=== PATIENT | male | born 1950 | race Caucasian/White ===

== ENCOUNTER 2019-09-20 11:31 | Outpatient (CLI) | payer MEDICARE, OTHER, SELFPAY ==
--- NOTE | 2019-09-20 11:43 | XR_ITS ---
WS: [id number] PROCEDURE: XR chest 2V* [id number] CLINICAL INFORMATION: ACUTE BRONCHITIS COMPARISON: None. FINDINGS: Heart: Normal cardiac silhouette. Lungs: Chronic emphysematous changes. No acute pulmonary infiltrates. No consolidation or pleural flu id. Bones: Hypertrophic changes thoracic spine. XR/XR chest 2V* [id number] IMPRESSION: No acute chest findings.
== END 2019-09-20 11:32 | disposition home or self-care (01) ==
LOC: RAD 11:40
PROVIDERS: Family Provider Family Medicine; PCP Family Medicine; Visit Provider Family Medicine
DX: J20.9 Acute bronchitis, unspecified (principal)
CPT/HCPCS: 71046

== ENCOUNTER 2020-02-20 11:04 | Outpatient (CLI) | payer MEDICARE, OTHER, SELFPAY ==
--- NOTE | 2020-02-20 11:18 | CT_ITS ---
WS: [id number] CTA OF THE CHEST WITH PULMONARY EMBOLISM PROTOCOL TECHNIQUE: High-resolution contrast enhanced CTA of the chest with coronal and sagittal reformatted i mages with pulmonary embolism protocol. MIP images are also reviewed. CLINICAL INFORMATION: CHEST PAIN COMPARISON: None. DLP: 802.[address] scans at [facility] use at least one of these dose optimization techniques: automat ed exposure control; mA and/or kV adjustment per patient size (includes targeted exams where dose is matched to clinical indication); or iterative reconstruction. FINDINGS: Proximal main pulmonary arteries are normal. Segmental and subsegmental pulmonary arteries are normal . No filling defects. No evidence of pulmonary embolus. Normal caliber thoracic aorta. Mild aortic calcification. Coronary calcification. No mediastinal or h ilar lymphadenopathy. No axillary lymphadenopathy. Adrenal glands are normal. Exophytic left renal cy st measuring 5.3 x 4.6 cm. Mild chronic emphysematous changes. Slight atelectasis in the lung bases. No acute pulmonary infiltrates. CT/CT angio chest PE protcl [id number] IMPRESSION: 1. No evidence of pulmonary embolus. 2. No mediastinal or hilar lymphadenopathy. 3. No acute pulmonary infiltrates. Subsegmental atelectasis the lung bases. 4. Exophytic left upper pole renal cyst measuring 5.3 cm
[2020-02-20] MEDS: iohexol 350 mg/mL 100 mL Btl IV (11:53)
== END 2020-02-20 11:05 | disposition home or self-care (01) ==
LOC: RADWPI 11:08
PROVIDERS: Family Provider Family Medicine; PCP Family Medicine; Visit Provider Family Medicine
DX: R07.9 Chest pain, unspecified (principal); J98.11 Atelectasis; Q61.01 Congenital single renal cyst
CPT/HCPCS: 71275; Q9967

== ENCOUNTER 2020-02-27 08:30 | Outpatient (CLI) | payer MEDICARE, OTHER, SELFPAY ==
--- NOTE | 2020-02-27 08:36 | USCV_ITS ---
Maria Luisa, Charbel Age: 69 Gender: M : 1950 Exam Date: 02/27/2020 08:37 Ordering Phys: Geraldo Huerta MD Technologist: Anabella Christine Exam Location: [facility] [place] Indication: CP BP: 129 / 72 HR: 88 Rhythm: Sinus Technical Quality: Fair MEASUREMENTS (Male / Female) Normal Values 2D ECHO LV Diastolic Diameter PLAX 5.4 cm 4.2 - 5.9 / 3.9 - 5.3 cm LV Systolic Diameter PLAX 4.5 cm LV Chamber Size 5.0 cm IVS Diastolic Thickness 1.3 cm 0.6 - 1.0 / 0.6 - 0.9 cm IVS Systolic Thickness 2.2 cm LVPW Diastolic Thickness 0.9 cm 0.6 - 1.0 / 0.6 - 0.9 cm LVPW Systolic Thickness 1.1 cm RV Chamber Size 3.3 cm LVOT Diameter 2.0 cm LV Ejection Fraction 2D Teich 34.7 % LA Diameter 3.9 cm LA Width 3.7 cm LA Height 5.2 cm RA Width 3.3 cm RA Height 4.8 cm Aorta at Sinotubular Diameter 3.2 cm M-MODE LV Diastolic Diameter MM 6.5 cm 4.2 - 5.9 / 3.9 - 5.3 cm LV Systolic Diameter MM 5.0 cm LV Ejection Fraction MM Teich 43.6 % IVS Diastolic Thickness MM 1.1 cm 0.6 - 1.0 / 0.6 - 0.9 cm IVS Systolic Thickness MM 1.5 cm LVPW Diastolic Thickness MM 1.3 cm 0.6 - 1.0 / 0.6 - 0.9 cm LVPW Systolic Thickness MM 1.4 cm RV Diastolic Diameter MM 1.6 cm Aortic Annulus Diameter 3.2 cm LA Ao Ratio MM 1.2 MV E Point Septal Separation 0.9 cm DOPPLER AV Peak Velocity 115.0 cm/s LVOT Peak Velocity 102.0 cm/s AV Area Cont Eq vti 2.7 cm squared AV Area Cont Eq pk 2.8 cm squared MV Area PHT 5.0 cm squared Mitral E to A Ratio 1.0 MV E' Velocity 7.0 cm/s Mitral E to MV E' Ratio 13.0 Mitral E to LV E' Lateral Ratio 14.0 Mitral E to LV E' Septal Ratio 12.4 TV Peak E Velocity 53.0 cm/s Right Atrial Pressure 3.0 mmHg PV Peak Velocity 81.0 cm/s FINDINGS Left Ventricle Normal left ventricular cavity size. Normal left ventricular wall thickness. Moderately decreased left ventricular systolic function. Regional wall motion abnormalities (see diagram). Grade II/IV diastolic dysfunction, moderately elevated filling pressures. Moderate to severe hypokinesis of the inferior, posterior and lateral brown. Ejection fraction 35 to 40%. Right Ventricle Normal right ventricular size and systolic function. Normal right ventricular systolic pressure. Right Atrium The right atrium is normal in size. Left Atrium The left atrium is normal in size. Mitral Valve Structurally normal mitral valve without significant stenosis or prolapse. There is no mitral regurgitation. Aortic Valve Structurally normal aortic valve without significant sclerosis or stenosis. There is no aortic regurgitation. Tricuspid Valve Structurally normal tricuspid valve. Trace tricuspid valve regurgitation. Pulmonic Valve Pulmonic valve not well visualized. Pericardium Normal pericardium without effusion. Aorta Normal ascending aorta dimension. CONCLUSIONS Normal left ventricular cavity size. Normal left ventricular wall thickness. Moderately decreased left ventricular systolic function. Regional wall motion abnormalities (see diagram). Grade II/IV diastolic dysfunction, moderately elevated filling pressures. Moderate to severe hypokinesis of the inferior, posterior and lateral brown. Ejection fraction 35 to 40%. There are no prior echocardiogram studies to compare. Dr. Brandan Gudino MD (Electronically Signed) Final Date: 27 February 2020 16:05 S
--- NOTE | 2020-02-27 08:57 | ECG_ITS ---
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 Interpretive Statements NAME OF STUDY: LEXISCAN SESTAMIBI STRESS TEST INDICATION: Chest Pain, LEXISCAN STRESS TEST ORDERING PHYSICIAN: Unknown CLINICAL INFORMATION: Unknown INTERPRETATION: 1. The patient was brought to the laboratory where Lexiscan was infused over 20 seconds. The resting blood pressure was 149/86. Maximum blood pressure was 150/81. The resting heart rate was 87 beats per minute. The maximum heart rate is 106 beats per minute. 2. The baseline electrocardiogram reveals sinus rhythm with mild downsloping ST segment depression in leads V2 through V5 at rest. 3. With Lexiscan infusion, there were minimal ST segment changes to suggest ischemia. The baseline ST segment depression in leads V2 through V5 worsened slightly. 4. The patient experienced no symptoms or arrhythmias during the examination. CONCLUSION: 1. Lexiscan infusion suggestive of but not diagnostic of ischemia. 2. Nuclear imaging to follow. Electronically Signed On 02-27-2020 16:28:35 CDT by Brandan Gudino M.D. [id number]
--- NOTE | 2020-02-27 08:58 | NMCV_ITS ---
NM lamar perf SPECT r/s* [id number] Charbel Glass Age: 69 Gender: M : 1950 Exam Date: 02/27/2020 09:34 Ordering Phys: Geraldo Huerta MD Technologist: AUDRA Gordon Exam Location: [facility] Indications: CHEST PAIN STRESS TEST Please see separate stress test report in [facility] for full findings IMAGE PROTOCOL Rest/Stress 1 Lexiscan Day Radiopharmaceutical Dose (mCi) Administration Site Administered by Rest: Tc-99m 10.9 IV AUDRA Renner Sestamibi Stress:Tc-99m 32.9 IV AUDRA Renner Sestamibi Rest: 27-Feb-2020 60 Discovery 630 Stress: 27-Feb-2020 30 Discovery 630 0.4mg Lexiscan. Images obtained in supine and prone position. SPECT RESULTS Technical Quality: Good Raw Data Analysis: Subdiaphragmatic activity Image Corrections: No attenuation or motion correction applied Summed Stress Score: 18 Summed Rest Score: 20 Summed Difference Score: 1 PERFUSION FINDINGS Large size perfusion abnormality of severe severity of basal to apical inferior, basal to mid inferolateral, basal to mid anterolateral and apical lateral brown on rest and stress images. FUNCTIONAL RESULTS (calculated via Gated SPECT) Stress Image LV EF (%): 40 Stress EDV (mL):172 TID: 1.15 Stress ESV (mL):103 FUNCTIONAL FINDINGS: The left ventricle is dilated. Transient Ischemia Dilatation of 1.1. There is mildly reduced left ventricular global systolic function. The left ventricular ejection fraction is mildly reduced with a value of 40%. There is severe hypokinesis of inferior, mid inferolateral and apical lateral brown. Increased end-diastolic and end-systolic volumes. IMPRESSIONS 1. Large size predominantly fixed perfusion abnormality of severe severity of basal to apical inferior, basal to mid inferolateral, basal to mid anterolateral and apical lateral brown. 2. This is suggestive of old myocardial infarction/scarring in right coronary artery/circumflex artery territory. 3. The left ventricular ejection fraction is mildly reduced with a value of 40%. 4. There is severe hypokinesis of inferior, mid inferolateral and apical lateral brown. 5. No coronary ischemia based on this study. Nadege Jones MD (Electronically Signed) Final Date: 27 February 2020 18:24 S
[2020-02-27] MEDS: regadenoson 0.4 Mg/5 ml Syringe IVP (10:51)
[2020-02-27 10:52] VITALS: BP 131/70; PULSE 95
== END 2020-02-27 08:31 | disposition home or self-care (01) ==
PROVIDERS: PCP Family Medicine; Visit Provider Family Medicine
DX: R07.9 Chest pain, unspecified (principal); I51.81 Takotsubo syndrome
CPT/HCPCS: 78452; 93017; 93306; A9500; J2785

== ENCOUNTER → 2020-03-10 09:22 | Outpatient (BNVA) | payer MEDICARE, OTHER, SELFPAY | PROVIDERS: PCP Family Medicine; Visit Provider Internal Medicine Cardiovascular Disease | DX: I25.118 Atherosclerotic heart disease of native coronary artery with other forms of angina pectoris (principal); R06.02 Shortness of breath | CPT/HCPCS: 80048; 85025; 87635 ==

== ENCOUNTER 2020-03-12 11:51 | Observation (INO) | payer MEDICARE, OTHER, SELFPAY ==
--- NOTE | 2020-03-11 14:09 | SUR.PREOP ---
Covid test pending still. Mansfield aware. Verbal okay to mask patient and proceed. Verified with [facility] that test was drawn after order placed.
--- NOTE | 2020-03-12 09:36 | XACV_ITS ---
Ht: 191 cm Wt: 113 kg BSA: 2.48 m2 Gender: Male : 1950 Any Known Allergies: No known allergies Exam Priority: Routine Procedure(s): Procedure Description: Diagnostic procedure Procedure Description: Left ventriculography Procedure Description: Coronary Angiography Diagnostic Cath Status: Elective Diagnostic Findings LM has 0% stenosis. pLAD: Severe 90% stenosis, JENN: 3 flow. mLAD: Moderate 65% stenosis, JENN: 3 flow. mCIRC: Severe 99% stenosis, JENN: 2 flow. dCIRC: Severe 85% stenosis, JENN: 3 flow. pRCA to mRCA: Severe 100% stenosis, JENN: 1 flow. CIRC AV to dRCA collateralization. dLAD to aMarg2 collateralization. Coronary angiography shows left dominance. PCI Status: Elective Conclusions There is severe coronary artery disease with three vessel disease. Mild left ventricular systolic dysfunction. Ejection fraction of 45%. Moderately elevated left ventricular end-diastolic pressure 25 mmHg. No aortic valve gradient noted. Indication for left heart cath: Abnormal stress test , angina , abnormal EKG , possible non-ST elevation AR in the near past. Recommendations 1-Return to [facility] for close monitoring and routine PCI care2- Usual post cath care3-No Plavix for possible CABG4-Statin with LDL goal of 70 mg/dl, aspirin 81 mg p.o. daily for life long 5-CT surgery consults for CABG6-Optimal medical management for CAD7-Follow up with Dr. Mansfield in four weeks and establish care with primary care physician. Diagnostic RX Recommendation: CABG Ventriculography Ejection Fraction: 45.0 % Left Ventriculography Findings: Moderately depressed LV function LV 45%. Pressures Phase:Rest AO : 165 mmHg / 49 mmHg ( 79 mmHg ) @ 6:00:00 AM 126 mmHg / 52 mmHg ( 86 mmHg ) @ 6:31:00 AM 118 mmHg / 63 mmHg ( 87 mmHg ) @ 6:31:00 AM 118 mmHg / 64 mmHg ( 88 mmHg ) @ 6:31:00 AM LV : 122 mmHg / 16 mmHg / @ 6:29:00 AM 110 mmHg / 17 mmHg / @ 6:31:00 AM 116 mmHg / 20 mmHg / @ 6:31:00 AM 116 mmHg / 13 mmHg / @ 6:31:00 AM Valves Phase:DefaultPhase AV : 0.0 mmHg @ 11:42:05 AM AV Mean Gradient: 0.0 mmHg @ 11:42:05 AM Clinical Evaluation EBL: 5mL-10mL Procedural Details Procedure Consent Obtained. Pre-Procedure Time Out. Identified patient by full name and date of as verbalized by the patient/guarantor. Does the consent match the physician's order: Yes. Accurate & Complete Informed Consent: Yes. Inpatient/Outpatient History & Physical on Chart: Yes. If H&P is completed, is and addenduem needed: No; If yes, is the addendum complete: N/A. Visualize and Verify Site with Patient/Guarantor: N/A. Relevant Radiology Images available: Yes. Pre-op teaching completed and patient verbalized understanding. The risks, benefits, and alternatives of sedation and/or procedure were discussed by physician. The patient agrees to continue. Procedure started. Correct patient, site and procedure confirmed by cath team. Current diagnosis: Chest Pain. PERRLA. Strong, equal hand behavioral health rn bilaterally. Lungs clear x 5 lobes. IV Site on Arrival: 20 gauge in the left anticubital. IV Fluids: 0.9% NaCl at KVO. 0 mL infused prior to label fuser tender. Pre Procedural Pulses: bilateral dorsalis pedis was 3+. Pre Procedural Pulses: bilateral posterior tibial was 3+. Pre Procedural Pulses: bilateral radial was 3+. Oxygen started at 2liters/min via nasal canula. bilateral groins was prepped with chloroprep then draped in the usual sterile fashion. right radial was prepped with chloroprep then draped in the usual sterile fashion. Physician notified. Baseline sample Acquired. HR: 55 BPM. Equipment: 6F - Radial. ACIST Manifold Kit Model BT 2000. Cardiac Cath Pack. Heparinized Saline (2 units/mL), 1000 mL bag. Physician arrived. Physician scrubbed in. Immediate Pre-Procedure Time Out. Correct Patient: Yes; Correct Procedure: Yes; Correct Site: Yes; Correct Patient Position: Yes; Correct Supplies: Yes; Dried Flammable Prep: Yes; Blood Products Available: No;. Lidocaine 1% infiltrated to the right radial. Arterial access obtained. A 6 angolan TIG catheter in over wire. Multiple views taken of left coronary artery. Catheter redirected to the RCA. Multiple views taken of right coronary artery. Chronically occluded RCA noted. Catheter out. A 6 angolan JR4 catheter in over wire. Dr. Ladd contacted. Dr. Ladd arrived. Side port of sheath attached to Normal Saline flush at KVO to maintain patency. Physicians reviewing films. A 6 angolan Angled Pig catheter in over wire. LV gram performed in PONCE @ 10 mL/second for a total of 30 mL. EDP Sample taken: LV 122/16,18; HR: 59 BPM; SpO2: Off%. Pullback taken: LV 110/17,23; AO 126/52(86); Mean: 0mmHg, Peak to Peak: 0mmHg, SEP: 13sec/min; HR: 68 BPM; SpO2: Off%. EDP Sample taken: LV 116/20,26; HR: 52 BPM; SpO2: Off%. Pullback taken: LV 116/13,24; AO 118/63(87); Mean: 0mmHg, Peak to Peak: 0mmHg, SEP: 17sec/min; HR: 63 BPM; SpO2: Off%. A TR Band was successful obtaining hemostatsis at the Right Radial artery insertion site. Post Procedure: Pulses reassessed and unchanged. PERRLA. Strong, equal hand behavioral health rn bilaterally. No VTE prophylaxis required. Medication's Wasted: Lidocaine 1% = 18 mL. Medication's Wasted: Nitro = 49.8 mg. Medication's Wasted: Heparin = 1000 units mL. Medication's Wasted: Other = Versed 1 mg. Medication's Wasted: Other = Fentanyl 50mcg. Total IV fluids: 76.3 mL. Contrast type used: Omnipaque 300 mgI/mL, 500 mL bottle. Post-op diagnosis: Severe multivessel CAD. Complications: None. Estimated blood loss: 5mL-10mL. Vital chart was stopped. Procedure completed. Patient transferred by bed to 1st floor. [facility] Clinical Fraility Score: 3: Managing Well. Angio Technologist Indications: Suspected CAD. Chest Pain Symptom Assessment: Typical Angina Symptoms. Cardiovascular Instability: No. Site: Right Radial artery Sheath Size: 6 Fr Hemostasis Method: TR Band Hemostasis Success: Successful Procedure Medications Start: 10:51 AM Stop: 10:51 AM Medication: Versed Amount: 1 mg Route: I.V. Start: 10:51 AM Stop: 10:51 AM Medication: Fentanyl Amount: 50 mcg Start: 10:55 AM Stop: 10:55 AM Medication: Versed Amount: 1 mg Route: I.V. Start: 10:55 AM Stop: 10:55 AM Medication: Fentanyl Amount: 50 mcg Start: 10:57 AM Stop: 10:57 AM Medication: Nitrogylcerin Amount: 200 mcg Route: I.A. Start: 11:00 AM Stop: 11:00 AM Medication: Heparin Amount: 5000 units Route: I.V. I, the attending physician, have reviewed and verified all procedure medications. Yes, all medications given per verbal order History/Risk Factors Hypertension: Yes Dyslipidemia: Yes Diabetic Therapy: Oral Peripheral Arterial Disease (PAD): No Myocardial Infarction (AR): No Obesity: No Renal Disease: No Prior Interventions PCI: No CABG: No Valve Surgery: No Report Signatures Finalized by:Russ Mansfield MD on 03/12/2020 12:20:51 PM
[2020-03-12 09:38] VITALS: BMI 31.2
[2020-03-12 09:39] VITALS: BP 146/74; PULSE 57; RESP 17; TEMP 36.8; O2SAT 98
[2020-03-12] MEDS: diphenhydrAMINE 50 mg Capsule PO (10:05)
--- NOTE | 2020-03-12 10:19 | W.PM.OPSUD ---
Surgery/Procedure H&P Update DATE OF PROCEDURE: March 12, 2020 DATE H&P PERFORMED: 03/03/20 H&P UPDATE INFORMATION: I have reviewed H&P completed within last 30 days, I have examined patient prior to procedure and No changes to prior documentation PREOP DIAGNOSIS: Angina, recent non-ST elevation RI, abnormal EKG, abnormal stress test showing old infarct no new ischemia however patient continues to have chest pain PLANNED PROCEDURE: Operation Date: 03/12/20 10:00 Proposed Procedures p Cardiac Catheterization(Left) - Russ Mansfield MD PHYSICAL EXAM: alert, oriented x 3, clear to auscultation bilaterally and regular rate & rhythm AIRWAY EVAL/ANESTHESIA PLAN: ASA II
--- NOTE | 2020-03-12 10:25 | SUR.PREOP ---
Patient prepped. ready for cath at 0945. Waiting for preceding case to finish.
[2020-03-12] MEDS: metoprolol succinate ER (24 HR) 25 mg Tablet 12.5 MG PO (13:11)
[2020-03-12] MEDS: aspirin 81 mg EC Tablet PO (13:12)
--- NOTE | 2020-03-12 13:32 | PC.NURSE ---
PATIENT RETURNED FROM CCL VIA WHEELCHAIR WITH CCL STAFF ; VSS ; PATIENT RIGHT WRIST TR BAND IN PLACE WITH NO BLEEDING BRUISING OR HEMATOMA NOTED ; DISTAL PULSES PRESENT ; PATIENT MONITORED AND ORIENTED TO ROOM WITH CALL LIGHT AT BEDSIDE
[2020-03-12 15:35] VITALS: PULSE 65; RESP 17; O2SAT 94
--- NOTE | 2020-03-12 16:06 | PM.CONSULT ---
Providers/Reason For Consult Consulting Physican/Specialty*: Dr. Solomon, cardiothoracic surgery Reason for Consult*: Coronary artery disease Requesting Physcian: Dr. Mansfield Attending Physician: Russ Mansfield MD Primary Care Provider: Geraldo Huerta MD History of Present Illness History of Present Illness Charbel Glass is a 69 year old male whom I was asked to evaluate in consultation upon request of Dr. Mansfield. Left heart catheterization was performed earlier today by Dr. Mansfield to evaluate suspected coronary artery disease. Accounted seen Mr. Glass originally on March 03 upon referral from his primary care provider, Dr. Patel, because of a progressive history of worsening chest discomfort with exertion as well as dyspnea with exertion. Patient describes discomfort which would radiate from his chest up into his neck and jaw which occurred a few days prior to his presentation to his primary care provider. Stress test of February 26 revealed old inferior wall myocardial infarction also involving the lateral wall with hypokinesia but without significant ischemia. Patient continues to have waxing and waning chest discomfort with mild to moderate exertion. No history for syncope. No orthopnea or rest dyspnea. EKG reveals evidence of old inferior infarction. Patient also underwent a CT of the chest back on February 19 because of this chest discomfort and concerns for pulmonary molluscum. This was negative. Transthoracic echocardiogram of February 26 revealed: Normal left ventricular cavity size. Normal left ventricular wall thickness. Moderately decreased left ventricular systolic function. Regional wall motion abnormalities (see diagram). Grade II/IV diastolic dysfunction, moderately elevated filling pressures. Moderate to severe hypokinesis of the inferior, posterior and lateral brown. Ejection fraction 35 to 40%. There are no prior echocardiogram studies to compare. Left heart catheterization performed earlier today by Dr. Mansfield revealed: LM has 0% stenosis. pLAD: Severe 90% stenosis, JENN: 3 flow. mLAD: Moderate 65% stenosis, JENN: 3 flow. mCIRC: Severe 99% stenosis, JENN: 2 flow. dCIRC: Severe 85% stenosis, JENN: 3 flow. pRCA to mRCA: Severe 100% stenosis, JENN: 1 flow. CIRC AV to dRCA collateralization. dLAD to aMarg2 collateralization. Coronary angiography shows left dominance. I reviewed the catheterization results with Dr. Mansfield in the [facility] at the time of the procedure. While he does have addressable lesions percutaneously, because of concerns related to the potential calcium in the stenotic lesion of the dominant circumflex vessel as well as old prior infarctions, depressed ejection fraction, and diabetes mellitus, it was felt prudent that a complete discussion should be undertaken with Mr. Glass and his family concerning various therapeutic options in relation to percutaneous versus operative revascularization. He is currently resting comfortably in the cardiac stepdown unit and remains pain-free at this time. Review of Systems Eyes: Denies: change in vision or blurry vision Card: Reports: chest pain; Denies: irregular heart rhythm, orthopnea or leg pain with exertion Resp: Reports: dyspnea (With exertion) GI: Denies: abdominal pain or change in bowel habits Musc: Denies: muscle cramps Neuro: Denies: numbness in extremities, weakness in extremities or Slurred speech present Psych: Denies: anxiety or depression Meds/Allergies Home Medications and Allergies Home Medications Medication Instructions Recorded Confirmed Last Taken Type albuterol 90 mcg/actuation aerosol 90 mcg INHALATION QID 03/03/20 03/12/20 03/11/20 17:00 History inhaler aspirin 81 mg tablet,delayed 81 mg PO DAILY 03/03/20 03/12/20 03/11/20 08:00 History release glimepiride 4 mg tablet 4 mg PO BID tab 03/03/20 03/12/20 03/11/20 17:00 History glucosamine HCl 1,500 mg tablet 1,500 mg PO DAILY 03/03/20 03/12/20 03/11/20 08:00 History losartan 100 mg tablet 100 mg PO DAILY 03/03/20 03/12/20 03/11/20 08:00 History multivitamin 1 cap PO DAILY 03/03/20 03/12/20 03/11/20 08:00 History pioglitazone 45 mg tablet 45 mg PO DAILY 03/03/20 03/12/20 03/11/20 08:00 History pravastatin 20 mg tablet 20 mg PO DAILY 03/03/20 03/12/20 03/11/20 08:00 History metoprolol succinate 25 mg 12.5 mg PO DAILY #45 tab 03/05/20 03/12/20 03/11/20 08:00 Rx tablet,extended release 24 hr cinnamon bark 500 mg capsule 1,000 mg PO DAILY cap 03/10/20 03/12/20 03/11/20 08:00 History insulin glargine 100 unit/mL (3 38 unit SUBCUT DAILY ml 03/10/20 03/12/20 03/11/20 17:00 History mL) subcutaneous pen propranolol 20 mg tablet 20 mg PO BID tab 03/10/20 03/12/20 03/11/20 08:00 History sertraline 100 mg tablet 100 mg PO DAILY 03/10/20 03/12/20 03/11/20 08:00 History isosorbide mononitrate 15 mg PO BID 03/12/20 03/12/20 03/11/20 17:00 History Allergies Allergy/AdvReac Type Severity Reaction Status Date / Time No Known Allergies Allergy Unverified 03/12/20 09:52 Current Medications Current Medications Generic Name Dose Route Start Last Admin Trade Name Freq PRN Reason Stop Dose Admin Aspirin 81 mg 03/12/20 12:30 03/12/20 13:12 Aspirin Ec PO 81 mg DAILY JOANNA Administration Sodium Chloride 1,000 mls @ 50 mls/hr 03/12/20 09:37 03/12/20 10:05 Sodium Chloride 0.9% IV 03/13/20 05:36 Not Given .Q20H ONE Metoprolol Succinate 12.5 mg 03/12/20 12:30 03/12/20 13:11 Toprol Xl PO 12.5 mg DAILY JOANNA Administration PFSH Acute PFSH: Medical History CAD (coronary artery disease) Essential hypertension Family History Mother Dementia Father Cancer CAD (coronary artery disease) Grandfather Diabetes Social History Smoking and tobacco status: never smoked Vitals/I&O/Wt Last Vital Signs Temp 98.2 F 03/12/20 09:39 Pulse 65 03/12/20 15:35 Resp 17 03/12/20 15:35 BP 146/74 03/12/20 09:39 Pulse Ox 94 03/12/20 15:35 Weight last 48 hrs Weight 250 lb Physical Exam Neck/C-Spine: COMMON NORMALS: full ROM and No carotid bruits GENERAL: Yes trachea midline Resp: COMMON NORMALS: normal respiratory effort, No use of accessory muscles and clear to auscultation bilaterally EFFORT & INSPECTION: Yes able to speak in complete sentences AUSCULTATION: clear to auscultation bilaterally Cardio: COMMON NORMALS: regular rate, regular rhythm, S1 normal heart sound present and No murmurs present (Cardio) RATE: regular rate RHYTHM: regular rhythm HEART SOUNDS: S1 normal heart sound present Extremity: COMMON NORMALS: normal to inspection A&P Assessment and plan (1) CAD (coronary artery disease): 69-year-old diabetic gentleman with multivessel coronary artery disease and depressed ejection fraction. Prior history of old myocardial infarction. Left dominant system. I have personally conferred with Dr. Mansfield and discussed various therapeutic options which are available. Dr. Mansfield has had conversations with patient and family. And they wished to discuss surgical opinion concerning his current pathology. I also reviewed his anatomy utilizing our educational written materials which I have provided for him and his family. We had a lengthy conversation concerning the option of percutaneous therapy versus surgical revascularization. I was very wilber about the risk profile for coronary bypass surgery given his prior infarction, depressed ejection fraction, multisegment disease, and diabetes mellitus as well as recent respiratory difficulties. He does family will be having a further conversation with Dr. Mansfield. If ultimately, he wishes to consider CABG, I would tentatively plan for surgery next Monday or Monday, March 17 or March 18. He and his family do reside in the area near [place] and therefore would need to have preoperative evaluation completed on Monday, March 16 Details and risks of CABG were carefully and frankly reviewed. Risks discussed include the possibility of , stroke, heart attack, major bleeding possibly requiring the need to reopen chest, infection, pneumonia, organ failure, failure to benefit, early closure of the bypass grafts, inability to complete the procedure, prolonged hospitalization, blood clots to lungs or other organs, need for further interventions, continued pain after surgery, need for future surgery, and possible long-term bleeding risk secondary to medication requirements. All questions were answered. He and his stated understanding. Status: Acute Consult Attestations Medical Necessity Statement: Severe multivessel coronary artery disease with depressed ejection fraction in a diabetic gentleman Time Spent in Patient Care: Greater than 35 minutes (45) Coding Level of Care Code New Pt Acute Compliance Administrator for Kirby Rahman Patient Type New History Detailed Exam Detailed Medical Decision Making Moderate Complexity Diagnoses CAD (coronary artery disease) I25.10 Time Spent (min) 50
[2020-03-12 16:17] VITALS: BP 120/65; PULSE 62; RESP 18; TEMP 36.9; O2SAT 92
[2020-03-12 16:36] LABS: Glucose Point of Care 270 mg/dL (70-110)
[2020-03-12] MEDS: isosorbide mononitrate ER 30 mg Tablet 15 MG PO (17:56)
--- NOTE | 2020-03-12 19:07 | PC.NURSE ---
PER DR RICHARDSON, PATIENT FAMILY MAY RETURN TOMORROW BETWEEN [phone] TO DISCUSS PATIENT PLAN OF CARE. KARINE EWING NOTIFIED.
[2020-03-12 19:46] VITALS: PULSE 67; RESP 18; O2SAT 93
[2020-03-12 20:17] VITALS: BP 130/66; PULSE 65; RESP 15; TEMP 36.6; O2SAT 93
[2020-03-12 22:37] LABS: Glucose Point of Care 308 mg/dL (70-110)
[2020-03-12] MEDS: atorvastatin 40 mg Tablet 20 MG PO (22:44)
--- NOTE | 2020-03-12 23:21 | PC.NUTR ---
Dr. Kilgore notified of patient asking for Tylenol for a headache.
[2020-03-13] VITALS: BP 123/63; PULSE 67; RESP 15; TEMP 36.8; O2SAT 94
--- NOTE | 2020-03-13 00:02 | PC.NURSE ---
Bedtime medications were later due to assisting with call lights and confused patients.
--- NOTE | 2020-03-13 00:35 | PC.NURSE ---
Was going to contact Dr. Mansfield to ask for Tylenol order. Patient states he does not want Tylenol anymore at this time.
[2020-03-13 04:00] VITALS: BP 122/75; PULSE 78; RESP 10; TEMP 37; O2SAT 94
--- NOTE | 2020-03-13 06:15 | PC.NURSE ---
Patient does not have any complaints at this time. Will monitor.
[2020-03-13 06:40] LABS: Glucose Point of Care 159 mg/dL (70-110)
[2020-03-13 09:18] VITALS: BP 135/67
[2020-03-13] MEDS: sertraline 100 mg Tablet PO (09:18)
[2020-03-13] MEDS: aspirin 81 mg EC Tablet PO (09:18)
[2020-03-13] MEDS: losartan 50 mg Tablet 100 MG PO (09:18)
[2020-03-13] MEDS: isosorbide mononitrate ER 30 mg Tablet 15 MG PO (09:20)
[2020-03-13 09:34] VITALS: TEMP 36.3
[2020-03-13 09:37] VITALS: PULSE 69; RESP 16; O2SAT 95
--- NOTE | 2020-03-13 09:48 | PC.CHAP ---
Pastoral Care Encounter/Spiritual Assessment Type of Contact [] Declined storage management consultant visit [] Patient/Family/Request visit [] Outpatient visit [] Follow-up visit [] Physician referral [] Code/Alert [x] Routine visit [] Staff referral [] Actively dying [] Patient sleeping [] Family support [] [] Out of room [] Palliative care [] [] Receiving care in room [] Pre-surgical visit [] Trauma [] Long length of stay [] ICU visit [] Other: Relational/Emotional Strength [] Patient feels connected with others/family/visitors/staff [] Distress [] Loneliness/isolation [] Abandonment Spirituality of Patient [] Person of Gisele [] Attends Sabianist of their Gisele [] Believes in Prayer [] Reads Bible or Baptist materials [] There are Spiritual issues to be addressed 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 Interventions [x] Prayer [x] Active listening [x] Non-anxious presence [x] Spiritual/emotional support [] Crisis/trauma care [] Spiritual counseling [] Bereavement support [] Provided bereavement packet [] Provided Bible/devotional materials [] Provided toy/stuffed animal, coloring book to patient or family member [] Provided Communion [] Anointing/[place] [] Salvation [x] Completed spiritual assessment [] Other: Impact on Illness or Injury [] Angry [] Fearful [] Anxious [] Often cries [] Exhaustion [] Unable to work [] Unable to attend adventism [] Unable to walk/stand [] Unable to read [] Unable to drive [] Unable to eat/drink [] Unable to sleep [] Unable to be with family [] Patient intubated [] Other: Summary Patient resting well. Time spent with patient 10 min
[2020-03-13] MEDS: metoprolol succinate ER (24 HR) 25 mg Tablet 12.5 MG PO (09:51)
--- NOTE | 2020-03-13 11:00 | PC.NURSE ---
Patient's and daughter at bedside to meet with Dr. Mansfield. I contacted Dr. Mansfield by phone. Dr. Mansfield states heis delayed and will be able to meet at 12:30 - 1:00 Patient and family notifie. We agreed I would call the when Dr. Mansfield arrives on unit.
[2020-03-13 11:57] LABS: Glucose Point of Care 294 mg/dL (70-110)
--- NOTE | 2020-03-13 13:37 | P.DS_ITS ---
Discharge Providers Date of Admission: 03/12/20 11:51 Date of Discharge: March 13, 2020 Attending Provider at Admission: Russ Mansfield MD Attending Provider at Discharge: Russ Mansfield MD Primary Care Provider: Geraldo Huerta MD Diagnoses at Discharge Discharge Diagnosis (1) CAD (coronary artery disease): Status: Acute Reason for Visit Reason for Visit: left heart cath Hospital Course Discharge Summary: 69-year-old male past medical history significant for hypertension hyperlipidemia underwent coronary angiogram for abnormal stress test and for high suspicion of recent non-ST elevation IL for which he did not seek attention, after coronary angiogram triple-vessel disease was noted patient was referred to bypass surgery and given choice as in his case because of LV dysfunction, diabetes and triple-vessel disease coronary artery bypass surgery long-term has better data. Patient thought about it, we had family conferences 2-3 times since his admission where we spent more than two hours Dr. Solomon myself patient daughter and patient discussed all options risk-benefit and alternative. Patient would like to proceed with coronary artery bypass surgery. He would like to go home and come back, patient has been given the choice that he can stay in the hospital. He understand the risk of going home including arrhythmia myocardial infarction and in worse case scenario . Patient has been advised in case of chest pain recurrence he should take nitroglycerin if does not relieved with nitroglycerin he should come to ER by calling 911. We are planning to proceed with early next week with the surgery. He will be comi ng back on the Monday for mapping. I have given patient my phone number in case of any questions or symptoms he can call me. Continue aspirin statin beta- ana isosorbide mononitrate, continue rest of home meds Physical Exam Narrative: EXAM NARRATIVE: GENERAL: Patient is alert, awake and oriented x3. NECK: No jugular vein distension. HEENT: No cyanosis. No icterus. No pallor. HEART: Regular S1 and S2. No murmur, rub or gallop. LUNGS: Clear to auscultate bilaterally. ABDOMEN: Soft, nontender and nondistended. Positive bowel sounds. No guarding, rebound or tenderness. CENTRAL NERVOUS SYSTEM: Grossly nonfocal. EXTREMITIES: Lower extremities without edema bilaterally. Pulses palpable in the lower extremities, both dorsalis pedis and posterior tibial. Const: COMMON NORMALS: alert Resp: COMMON NORMALS: clear to auscultation bilaterally AUSCULTATION: clear to auscultation bilaterally Neuro: SENSORIUM/ORIENTATION: Yes alert Discharge Data Data Completed and Pending: Completed Studies During Hospitalization Category Date Time Status ORACLE FUSION MIDDLEWARE ARCHITECT request for service Routin e Exams 03/12/20 09:36 Completed Labs from last 24 hours 03/13/20 03/13/20 03/12/20 11:52 06:34 21:34 POC Glucose 294 159 308 03/12/20 16:26 POC Glucose 270 Vitals: Last Vital Signs Temp 97.3 F L 03/13/20 09:34 Pulse 69 03/13/20 09:37 Resp 16 03/13/20 09:37 BP 135/67 03/13/20 09:18 Pulse Ox 95 03/13/20 09:37 Discharge Plan Discharge Patient Disposition: Home, Self-Care Condition: Stable Prescriptions: New nitroglycerin 0.4 mg tablet, sublingual 0.4 mg SUBLINGUAL Q5M Qty: 30 RF: 3 Continued sertraline 100 mg tablet 100 mg PO DAILY RF: 0 albuterol 90 mcg/actuation aerosol 90 mcg INHALATION QID RF: 0 pioglitazone 45 mg tablet 45 mg PO DAILY RF: 0 losartan 100 mg tablet 100 mg PO DAILY RF: 0 pravastatin 20 mg tablet 20 mg PO DAILY RF: 0 glimepiride 4 mg tablet 4 mg PO BID RF: 0 aspirin [Adult Aspirin Regimen] 81 mg tablet,delayed release (DR/EC) 81 mg PO DAILY RF: 0 glucosamine HCl 1,500 mg tablet 1,500 mg PO DAILY RF: 0 multivitamin Capsule 1 cap PO DAILY RF: 0 metoprolol succinate 25 mg tablet extended release 24 hr 12.5 mg PO DAILY Qty: 45 RF: 3 propranolol 20 mg tablet 20 mg PO BID RF: 0 cinnamon bark [Cinnamon] 500 mg capsule 1,000 mg PO DAILY RF: 0 Basaglar KwikPen U-100 Insulin 100 unit/mL (3 mL) insulin pen 38 unit SUBCUT DAILY RF: 0 isosorbide mononitrate 30 mg tablet extended release 24 hr 15 mg PO BID RF: 0 Discharge Orders: Discharge Order (Routine); Ordered 03/13/20 Ordered By: Russ Mansfield Referrals: Russ Mansfield MD [Physician] - Discharge Diet: Cardiac Patient Instructions: Left Heart Catheterization (DC), Chest Pain Stoplight Activity Restrictions/Additional Instructions: patient will be referred for CT surgery early next week Discharge Date/Time: 03/13/20 14:00 Discharge Attestations Time Spent in Discharge Care*: greater than 30 min Specific Discharge Activities: Specific discharge activities: educating patient, educating and/or supporting family/caregiver and discussing with pcp/other providers Quality Metrics Clinical Quality Measures During this hospital stay, did patient experience: None Coding Level of Care Code New Pt Acute Diabetes Educator for Chg Fwd Patient Type New Exam Expanded Problem Focused Medical Decision Making Moderate Complexity Diagnoses CAD (coronary artery disease) I25.10
--- NOTE | 2020-03-13 13:37 | P.PN_ITS ---
Subjective Subjective: Interval history: Status post left heart cath consistent with triple-vessel disease patient was referred to bypass surgery and given choice as in his case because of LV dysfunction, diabetes and triple-vessel disease coronary artery bypass surgery long-term has better data. Patient thought about it we had family conferences x2 where we spent more than two hours Dr. Solomon myself patient daughter and patient discussed all options risk-benefit and alternative. Patient would like to proceed with coronary artery bypass surgery. He would like to go home and come back, patient has been given the choice that he can stay in the hospital, he would like to go home. He understand the risk of going home including arrhythmia bradycardia infarction and worse case scenario . Patient has been advised in case of chest pain recurrence he should take nitroglycerin if does not relieved with nitroglycerin he should come to ER by calling 911. We are planning to proceed with early next week with the surgery. He will be coming back on the Monday for mapping. I have given patient my phone number in case of any questions or symptoms he can call me. Vitals/I&O/Wt Last Vital Signs Temp 97.3 F L 03/13/20 09:34 Pulse 69 03/13/20 09:37 Resp 16 03/13/20 09:37 BP 135/67 03/13/20 09:18 Pulse Ox 95 03/13/20 09:37 03/12/20 03/13/20 03/13/20 22:59 06:59 14:59 Intake Total 400 / 400 240 / 240 Balance 400 / 400 240 / 240 Weight last 48 hrs Weight 248 lb 4.8 oz Weight 250 lb Physical Exam Narrative: EXAM NARRATIVE: GENERAL: Patient is alert, awake and oriented x3. NECK: No jugular vein distension. HEENT: No cyanosis. No icterus. No pallor. HEART: Regular S1 and S2. No murmur, rub or gallop. LUNGS: Clear to auscultate bilaterally. ABDOMEN: Soft, nontender and nondistended. Positive bowel sounds. No guarding, rebound or tenderness. CENTRAL NERVOUS SYSTEM: Grossly nonfocal. EXTREMITIES: Lower extremities without edema bilaterally. Pulses palpable in the lower extremities, both dorsalis pedis and posterior tibial. Const: COMMON NORMALS: alert Resp: COMMON NORMALS: clear to auscultation bilaterally AUSCULTATION: clear to auscultation bilaterally Neuro: SENSORIUM/ORIENTATION: Yes alert A&P Assessment and plan (1) CAD (coronary artery disease): Status post left heart cath consistent with triple-vessel disease patient was referred to bypass surgery and given choice as in his case because of LV dysfunction, diabetes and triple-vessel disease coronary artery bypass surgery long-term has better data. Patient thought about it we had family conferences x2 where we spent more than two hours Dr. Solomon myself patient daughter and patient discussed all options risk-benefit and alternative. Patient would like to proceed with coronary artery bypass surgery. He would like to go home and come back, patient has been given the choice that he can stay in the hospital, he would like to go home. He understand the risk of going home including arrhythmia bradycardia infarction and worse case scenario . Patient has been advised in case of chest pain recurrence he should take nitroglycerin if does not relieved with nitroglycerin he should come to ER by calling 911. We are planning to proceed with early next week with the surgery. He will be comi ng back on the Monday for mapping. I have given patient my phone number in case of any questions or symptoms he can call me. Continue aspirin statin beta- ana isosorbide mononitrate, continue rest of home meds. Status: Acute (2) Essential hypertension: Stable. Continue current regimen Status: Acute Attestations Medical Necessity Statement*: Patient would like to go home. He will be discharged and coming back for bypass surgery on Monday Coding Level of Care Code Acute Liquor Tester for Kirby Fwd Exam Expanded Problem Focused Medical Decision Making Moderate Complexity Diagnoses CAD (coronary artery disease) I25.10 Essential hypertension I10
--- NOTE | 2020-03-13 14:00 | PC.NURSE ---
Dr. Mansfield met with patient and for an hour to discuss follow up care / plans; and to answer their questions. Plan is for patient to come back to hospital on Monday for pre-op lab work and vein mapping. Dr. Neha Aguilar's nurse, will call the patient tomorrow. Plan for CABG on Monday.
== END 2020-03-13 14:00 | disposition home or self-care (01) ==
LOC: CSU 11:51
PROVIDERS: Admitting Provider Internal Medicine Cardiovascular Disease; PCP Family Medicine; Visit Provider Internal Medicine Cardiovascular Disease
DX: I25.10 Atherosclerotic heart disease of native coronary artery without angina pectoris (principal); I10 Essential (primary) hypertension; E78.5 Hyperlipidemia, unspecified; Z79.82 Long term (current) use of aspirin; Z82.49 Family history of ischemic heart disease and other diseases of the circulatory system; E11.9 Type 2 diabetes mellitus without complications; Z79.4 Long term (current) use of insulin
CPT/HCPCS: 12345; 36415; 36416; 82962; 93452; 96372; C1769; C1887; C1894; G0378; J1644; J1815; J2001; J2250; J3010; J3490; J3535; J7030; Q0163; Q9967

== ENCOUNTER 2020-03-17 05:02 | Inpatient (IN) | payer MEDICARE, OTHER, SELFPAY ==
--- NOTE | 2020-03-16 12:59 | USCV_ITS ---
Charbel Glass Age: 69 Gender: M : 1950 Exam Date: 03/16/2020 13:37 Ordering Phys: Denny Solomon MD (Andy) ([email or web address]) Technologist: Dyllan Fontaine Exam Location: [facility] [place] Indication: PRE OP CARDIAC SURGERY RIGHT LEFT LOWER EXTREMITY Diameter Diameter (cm) (cm) 0.58 High Thigh 0.44 0.30 Mid Thigh 0.33 0.32 Above Knee 0.37 0.28 Below Knee 0.28 0.23 Mid Calf 0.33 0.21 Ankle 0.34 RIGHT LEFT Findings Patent veins bilaterally. Easily compressible with no evidence of thrombosis Conclusions Normal caliber ,patent veins bilaterally with no evidence of thrombosis Venous dimensions as mentioned above Dr Ruben Delacruz MD [facility] (Electronically Signed) Final Date: 16 March 2020 21:02 S
[2020-03-16 13:07] VITALS: BMI 31.2
[2020-03-16 13:26] LABS: Add Urine Microscopic? NO
--- NOTE | 2020-03-16 13:27 | ANES.PREANE2 ---
Pre-Anesthetic Assessment Pre-Anesthetic Assessment: Height/Weight: Height 1.91 m Weight 113.398 kg Preop Diagnosis: CAD Proposed Procedure: Operation Date: 03/17/20 07:00 Proposed Procedures p CABG(Not Applicable) - Denny Solomon MD Social: Social History: No alcohol and No tobacco Exam: Pre-Anes Outpt Exam: alert, oriented x 3, clear to auscultation bilaterally and regular rate & rhythm Airway: Submandibular: WNL Cervical ROM: WNL MP: 1 Dentition: Other (teeth ok) History/ROS: No significant history except as noted Pulmonary: Pulmonary: ALBRECHT CV/HEM: CV/HEM: CAD, HTN and SD : : None reported Hepatic: Hepatic: None reported GI: GI: None reported Metabolic: Metabolic: DM, Hyperlipidemia and Morbid obesity Musc/skel: Musc/skel: Lower Back Pain and OA/DJD Neuropsych: Neuropsych: None reported Anesthetic Plan: ASA status: 4 Anesthesia: Anesthesia Evaluation and General Risk of > 500 ml blood loss (7ml/kg in children): Yes, adequate IV access and fluids planned PFSH Anesthesia PFSH: Medical History Bronchitis CAD (coronary artery disease) Diabetes type 2, controlled Essential hypertension HLD (hyperlipidemia) Old SD (myocardial infarction) Family History Mother Dementia Father Cancer CAD (coronary artery disease) Grandfather Diabetes Social History Smoking and tobacco status: never smoked Data Anesthesia CBC & Chem 7: 03/16/20 13:15 Cardiac Studies: No Data to Display
[2020-03-16 13:43] LABS: INR 0.95 (0.8-1.2)
[2020-03-16 13:47] LABS: Basophils % 0.4 %; Eosinophils # 0.3 10^3/uL (0.0-0.8); Eosinophils % 2.8 %; Hematocrit 40.4 % (42.0-52.0); Hemoglobin 13.3 g/dL (11.7-16.6); Lymphocytes % 31.7 %; Mean Corpuscular HGB Conc 32.9 g/dL (30.0-36.0); Mean Corpuscular Hemoglobin 31.7 pg (28.0-34.0); Mean Corpuscular Volume 96.2 fL (80-94); Mean Platelet Volume 11.9 fL (7.4-10.4); Monocytes % 10.7 %; Neutrophils % 53.8 %; Nucleated Red Blood Cells % 0 %; Platelet Count 176 10^3/cmm (130-400); White Blood Count 9.4 10^3/uL (4.0-10.0)
[2020-03-16 13:54] LABS: Alanine Aminotransferase 17 U/L (0-41); Albumin Level 3.9 g/dL (3.5-5.2); Alkaline Phosphatase 87 IU/L (40-130); Anion Gap 18.4 (5-19); Aspartate Amino Transferase 15 U/L (0-40); Blood Urea Nitrogen 20 mg/dL (8-23); Calcium 9.7 mg/dL (8.5-10.5); Carbon Dioxide 24 mmol/L (22-29); Chloride 96 mmol/L (98-107); Globulin 3.3 g/dL (1.3-4.6); Glucose 383 mg/dL (65-115); Osmolality Calculated 290 mOsm/kg (285-295); Potassium 4.4 mmol/L (3.5-5.1); Sodium 134 mmol/L (136-145); Total Bilirubin 0.3 mg/dL (0.15-1.2); Total Protein 7.2 g/dL (6.6-8.7)
[2020-03-16 14:42] LABS: Ketones Urine Negative (Negative); Protein Urine Neg (Negative); Specific Gravity, Urine 1.015 (1.005-1.030); Urine Appearance Clear (CLEAR); Urine Color Yellow (Yellow); pH Urine 6 (5-7)
[2020-03-16 14:43] LABS: Glucose Urine UA 4+ (Normal)
[2020-03-16 14:44] LABS: Bilirubin Urine Neg (NEGATIVE); Blood Urine Neg (Negative); Leukocyte Esterase Urine Negative (Negative); Nitrate Urine Negative (Negative); Urobilinogen Urine Norm (Negative)
[2020-03-16 22:47] LABS: Free T4 Free Thyroxine 1.28 ng/dL (0.82-1.77)
[2020-03-17] VITALS (33 sets, daily range): BP systolic 85–127; BP diastolic 49–79; PULSE 58–80; RESP 12–23; TEMP 36.3–37.3; O2SAT 97–100
[2020-03-17 05:37] LABS: Glucose Point of Care 265 mg/dL (70-110)
[2020-03-17] MEDS: sodium chloride 0.9% 1,000 ML 30 ML IV (05:42)
[2020-03-17] MEDS: lidocaine 1% INJ 20 mL INTRADERMA (05:54)
--- NOTE | 2020-03-17 06:09 | W.PM.OPSUD ---
Surgery/Procedure H&P Update DATE OF PROCEDURE: March 17, 2020 DATE H&P PERFORMED: 03/12/20 H&P UPDATE INFORMATION: I have reviewed H&P completed within last 30 days, I have examined patient prior to procedure and No changes to prior documentation CHANGES TO PREVIOUS DOCUMENTATION: None PREOP DIAGNOSIS: CAD PRIMARY INDICATION FOR PROCEDURE: Severe coronary artery disease I have again discussed carefully with patient and family details and risk of coronary bypass surgery. All questions have been answered. They are eager to proceed. PLANNED PROCEDURE: Operation Date: 03/17/20 07:00 Proposed Procedures p CABG(Not Applicable) - Denny Solomon MD
[2020-03-17] MEDS: cefUROXime 1,500 MG in sodium chloride 0.9% (plus) 50 ML 100 MG IV ×2 (07:46→15:10)
[2020-03-17] MEDS: vancomycin 1,000 MG SDV 3000 MG IRRIGATION (08:00)
[2020-03-17] MEDS: sodium bicarbonate 1 mEq/mL SDV 50mL 0.7 MEQ IRRIGATION (08:00)
--- NOTE | 2020-03-17 08:21 | XRR_ITS ---
PROCEDURE INFORMATION: Exam: XR Chest, 1 View Exam date and time: 03/17/2020 6:26 PM Age: 69 years old Clinical indication: Device placement; Other: Status post open heart; Prior surgery; Surgery date: Post-operative (0-2 days); Additional info: Status post open heart. In or room 1. Will call when ready TECHNIQUE: Imaging protocol: XR of the chest Views: 1 view. COMPARISON: CR XR chest 2V* [id number] 09/20/2019 12:19 PM FINDINGS: Tubes, catheters and devices: Endotracheal tube above the terri thoracotomy tube on the left extending to the left apex. mediastinal drainage catheter [place]-Blake catheter with the tip in the artery to the right lower lobe. Nasogastric tube overlies the body of the stomach Lungs: Mild basilar airspace disease and pleural effusions left greater than right. Mild basilar airspace disease most pronounced in the left retrocardiac region. Likely atelectasis. Pleural space: Unremarkable. No pleural effusion. No pneumothorax. Heart/Mediastinum: Cardiomegaly with mild postoperative edema. Cardiomegaly with mild edema. Bones/joints: Status post thoracotomy/bypass. XR/XR chest 1V portable [id number] IMPRESSION: . Cardiomegaly with mild postoperative edema. Mild basilar airspace disease most pronounced in the left retrocardiac region. Likely atelectasis.
[2020-03-17] MEDS: heparin, porcine 1,000 unit/mL INJ 10 mL 1750 UNIT IRRIGATION (09:00)
--- NOTE | 2020-03-17 17:13 | XRR_ITS ---
PROCEDURE INFORMATION: Exam: XR Right Femur Exam date and time: 03/17/2020 5:14 PM Age: 69 years old Clinical indication: Screening exam; R/O lost needle in this area on the leg, post open heart surgery//////. Missing needle; Prior surgery; Surgery date: Post-operative (0-2 days); Additional info: Surgical count off TECHNIQUE: Imaging protocol: XR Right femur. Views: 2 views. COMPARISON: No relevant prior studies available. FINDINGS: Bones/joints: No visible active or acute osseous abnormality. Soft tissues: No visible radiopaque foreign body other than surgical clips from apparent saphenous vein harvest. XR/XR femur RT 1V [id number] IMPRESSION: No visible radiopaque surgical needle.
--- NOTE | 2020-03-17 17:13 | XRR_ITS ---
PROCEDURE INFORMATION: Exam: XR Left Femur Exam date and time: 03/17/2020 6:28 PM Age: 69 years old Clinical indication: Screening exam; Locate missing needle in this area; Prior surgery; Surgery date: Post-operative (0-2 days); Additional info: Surgical count off TECHNIQUE: Imaging protocol: XR Left femur. Views: 2 views. COMPARISON: No relevant prior studies available. FINDINGS: Bones/joints: No visible acute osseous abnormality. Soft tissues: No visible radiopaque foreign body other than surgical clips within the field of view. XR/XR femur LT 1V [id number] IMPRESSION: No visible radiopaque surgical needle within the field of view.
--- NOTE | 2020-03-17 18:48 | PC.NURSE ---
Arrived to unit from OR at this time. Pt intubated with IABP. [place] catheter measurement at 50. Arrived to floor with neosynephrine, epi, insulin, and fluid drip. Patient arrived to unit with pacemaker on at rate of 80. 2 pleural chest tubes and 1 mediastinal tube, outputs assessed. Resting in bed with eyes closed. No pain per flacc scale at this time. See Hemodynamic flowsheet.
[2020-03-17] MEDS: albumin 12.5 GM/250 ML VIAL IV (19:00)
--- NOTE | 2020-03-17 19:02 | ECG_ITS ---
[facility] Test Date: 2020-03-17 Pat Name: Charbel Glass Department: Room: ICU10 Gender: Male Manager System: : [id number] Requested By: Denny Solomon Order Number: [id number] Beckham MD: Nadege Jones M.D. Measurements Intervals [place] Rate: 65 P: 50 VA: 131 QRS: -13 QRSD: 101 T: -57 QT: 442 QTc: 463 Interpretive Statements SINUS RHYTHM LOW QRS VOLTAGE [QRS DEFLECTION < 0.5/1.0 mV IN LIMB/CHEST LEADS] POSSIBLE RIGHT VENTRICULAR CONDUCTION DELAY [RSR (QR) IN V1/V2] No previous ECG available for comparison Electronically Signed On 03-19-2020 17:25:26 CDT by Nadege Jones M.D. [id number]
[2020-03-17 19:27] LABS: Basophils # 0.1 10^3/uL (0.0-0.1); Basophils % 0.3 %; Eosinophils % 0.1 %; Hematocrit 31.8 % (42.0-52.0); Hemoglobin 10.3 g/dL (11.7-16.6); Lymphocytes % 11.3 %; Mean Corpuscular HGB Conc 32.4 g/dL (30.0-36.0); Mean Corpuscular Volume 95.8 fL (80-94); Mean Platelet Volume 10.8 fL (7.4-10.4); Monocytes # 2.3 10^3/uL (0.2-0.9); Monocytes % 13.1 %; Neutrophils # 12.7 10^3/uL (1.8-7.7); Neutrophils % 73.8 %; Nucleated Red Blood Cells % 0 %; Platelet Count 144 10^3/cmm (130-400); Red Blood Count 3.32 10^6/uL (4.1-5.3); Red Cell Distribution Width 14.4 % (12.1-15.1); White Blood Count 17.3 10^3/uL (4.0-10.0)
--- NOTE | 2020-03-17 19:28 | XRR_ITS ---
PROCEDURE INFORMATION: Exam: XR Chest, 1 View Exam date and time: 03/17/2020 7:42 PM Age: 69 years old Clinical indication: Device placement; Other: S/P open heart; Prior surgery; Surgery date: Post-operative (0-2 days) TECHNIQUE: Imaging protocol: XR of the chest Views: 1 view. COMPARISON: CR XR chest 1V portable [id number] 03/17/2020 5:06 PM FINDINGS: Tubes, catheters and devices: Endotracheal tube above the terri Thoracotomy tube on the left directed to the apex. mediastinal drainage catheter [place]-Blake catheter with the tip in the right pulmonary artery Lungs: Mild basilar airspace disease and pleural effusions left greater than right. Parenchymal opacity in the left retrocardiac region- atelectasis versus infiltrate.Subtle airspace disease right lung base. Pleural space: Probable small subpulmonic effusion on the left Heart/Mediastinum: Cardiomegaly with mild postoperative edema. Bones/joints: Status post thoracotomy/bypass. Other findings: Say jugular right XR/XR chest 1V portable [id number] IMPRESSION: Parenchymal opacity in the left retrocardiac region- atelectasis versus infiltrate.Subtle airspace disease right lung base. Sternotomy. Mild vascular congestion.
[2020-03-17 19:31] LABS: Anion Gap 13.2 (5-19); Blood Urea Nitrogen 19 mg/dL (8-23); Calcium 7.9 mg/dL (8.5-10.5); Carbon Dioxide 20 mmol/L (22-29); Chloride 116 mmol/L (98-107); Glucose 129 mg/dL (65-115); Osmolality Calculated 296 mOsm/kg (285-295); Potassium 5.2 mmol/L (3.5-5.1); Sodium 144 mmol/L (136-145)
[2020-03-17] MEDS: propofol 1,000 MG/100 ML INJ 6.8 MG IV (19:50)
--- NOTE | 2020-03-17 19:51 | P.CONIM_ITS ---
Providers/Reason For Consult Consulting Physican/Specialty*: Cardiology Reason for Consult*: Russ Mansfield MD Attending Physician: Denny Solomon MD Primary Care Provider: Geraldo Huerta MD History of Present Illness History of Present Illness Charbel Glass is a 69 year old male Past medical history significant for diabetes mellitus multivessel coronary artery disease hypertension hyperlipidemia moderately depressed LV function underwent coronary artery bypass surgery x4 today. Due to hemodynamic instability and difficulty in weaning off pump patient was started on intra-aortic balloon pump. Currently is on 2 mg of epi and has been shifted to ICU. Meds/Allergies Home Medications and Allergies Home Medications Medication Instructions Recorded Confirmed Last Taken Type aspirin 81 mg tablet,delayed 81 mg PO DAILY 03/03/20 03/17/20 03/16/20 History release glimepiride 4 mg tablet 4 mg PO BID tab 03/03/20 03/17/20 03/16/20 History glucosamine HCl 1,500 mg tablet 1,500 mg PO DAILY 03/03/20 03/17/20 03/16/20 History losartan 100 mg tablet 100 mg PO DAILY 03/03/20 03/17/20 03/17/20 03:45 History multivitamin 1 cap PO DAILY 03/03/20 03/17/20 03/16/20 History pioglitazone 45 mg tablet 45 mg PO DAILY 03/03/20 03/17/20 03/16/20 History pravastatin 20 mg tablet 20 mg PO DAILY 03/03/20 03/17/20 03/16/20 History metoprolol succinate 25 mg 12.5 mg PO DAILY #45 tab 03/05/20 03/17/20 03/16/20 19:30 Rx tablet,extended release 24 hr cinnamon bark 500 mg capsule 1,000 mg PO DAILY cap 03/10/20 03/17/20 03/16/20 History insulin glargine 100 unit/mL (3 38 unit SUBCUT DAILY ml 03/10/20 03/17/20 03/16/20 09:00 History mL) subcutaneous pen propranolol 20 mg tablet 20 mg PO BID tab 03/10/20 03/17/20 03/17/20 03:45 History sertraline 100 mg tablet 100 mg PO DAILY 03/10/20 03/17/20 03/16/20 History isosorbide mononitrate 15 mg PO BID 03/12/20 03/17/20 03/17/20 03:45 History nitroglycerin 0.4 mg SUBLINGUAL Q5M #30 tab 03/13/20 03/16/20 Unknown Rx Allergies Allergy/AdvReac Type Severity Reaction Status Date / Time No Known Allergies Allergy Unverified 03/12/20 09:52 Current Medications Current Medications Generic Name Dose Route Start Last Admin Trade Name Freq PRN Reason Stop Dose Admin Sodium Chloride 1,000 mls @ 30 mls/hr 03/17/20 05:00 03/17/20 05:42 Sodium Chloride 0.9% IV 03/18/20 04:59 30 mls/hr .Q24H JOANNA Administration Albumin Human 12.5 gm in 250 mls @ 600 mls/hr 03/17/20 19:07 03/17/20 19:00 Albumin IV 600 mls/hr PRN PRN Administration For CVP < 4 or SBP< 90 Propofol 1,000 mg in 100 mls @ 0 mls/hr 03/17/20 19:15 03/17/20 19:50 Diprivan IV 10 mcg/kg/min .Q0M JOANNA 6.8 mls/hr Administration Protocol Per Protocol Amiodarone HCl 900 mg/ 518 mls @ 0 mls/hr 03/17/20 19:30 03/17/20 19:49 Dextrose/ IV Miscellaneous IV 1 mg/min Supplies .Q0M JOANNA 34.5 mls/hr Administration Protocol Per Protocol Lidocaine HCl 0.1 ml 03/17/20 05:00 03/17/20 05:54 Lidocaine 1% INTRADERMA 03/18/20 04:59 0.1 ml PRN PRN Administration anesthetic prior to IV start PFSH Acute PFSH: Medical History Bronchitis CAD (coronary artery disease) Diabetes type 2, controlled Essential hypertension HLD (hyperlipidemia) [place] (myocardial infarction) Family History Mother Dementia Father Cancer CAD (coronary artery disease) Grandfather Diabetes Social History Smoking and tobacco status: never smoked Dietary Habits: Current diet type/program: regular Caffeine: Yes Exercise: What type of physical activity do you participate in?: none Safety: Seatbelt use: always Home Safety: Working smoke detector in home: Yes Fire extinguisher in home: Yes Personal Safety: Do you feel safe at home: Yes Vitals/I&O/Wt Last Vital Signs Temp 97.3 F L 03/17/20 05:10 Pulse 58 L 03/17/20 05:10 Resp 19 H 03/17/20 19:24 BP 118/66 03/17/20 05:10 Pulse Ox 97 03/17/20 05:10 03/17/20 03/17/20 03/17/20 06:59 14:59 22:59 Intake Total 440 / 440 400 / 840 Balance 440 / 440 400 / 840 Weight last 48 hrs Weight 250 lb Physical Exam Narrative: EXAM NARRATIVE: GENERAL: Patient is intubated and sedated with chest tubes in place NECK: No jugular vein distension. HEENT: No cyanosis. No icterus. No pallor. HEART: Regular S1 and S2. No murmur, rub or gallop. LUNGS: Clear to auscultate bilaterally. ABDOMEN: Soft, nontender and nondistended. Positive bowel sounds. No guarding, rebound or tenderness. CENTRAL NERVOUS SYSTEM: Cannot assess due to sedation eXTREMITIES: Lower extre mities with without bilaterally. Urinary Catheter Management^: Vance: Cath Placed During This Visit: yes Urinary Catheter Date of Insertion: 03/17/20 Urinary Catheter Time of Insertion: 08:23 A&P Assessment and plan (1) CAD (coronary artery disease): Patient is status post coronary bypass surgery x4 patient is on intra- aortic balloon pump. Continue as per CT surgery Status: Acute Qualifiers: Associated angina: with unstable angina Coronary Disease-Associated Artery/Lesion type: [place] artery [place] vs. transplanted heart: [place] heart Qualified Code(s): I25.110 - Atherosclerotic heart disease of [place] coronary artery with unstable angina pectoris Coding Level of Care Code Established Pt Acute Hospice Aide for Gregoriog Fwd Patient Type Established Medical Decision Making Moderate Complexity Diagnoses CAD (coronary artery disease) I25.110 Associated angina: with unstable angina Coronary Disease-Associated Artery/Lesion type: [place] artery [place] vs. transplanted heart: [place] heart
[2020-03-17] MEDS: aspirin 81 mg Chew Tablet PO (20:09)
[2020-03-17] MEDS: sodium chloride 0.9% 1,000 ML 75 ML IV (20:10)
--- NOTE | 2020-03-17 20:18 | P.OP_ITS ---
Operative Report Date of procedure: March 17, 2020 Pre-op Diagnosis: CAD Post-op diagnosis: same Post-op Findings: Transmural scarring of the inferior wall and inferior lateral brown. Severe hypokinesia of the inferior brown and lateral brown by trans- esophageal echocardiography. Vein was in general below average quality requiring harvesting by endoscopic and open technique from both lower extremities in order to obtain adequate conduit of adequate quality. Left internal mammary artery was a good conduit and carried good flow. LAD had diffuse disease as well as the previously documented tight lesions. OMB was a good target. RCA had diffuse disease and was in a fair target but appeared to continue distribution into a transmural infarcted area. Procedure Done: 1. Coronary artery bypass grafting x4 (1 artery and 3 veins) utilizing in situ left internal mammary artery to the left anterior descending artery, reverse saphenous vein grafts from the aorta to the distal right coronar y artery, obtuse marginal branch of the circumflex artery, and a Y graft constructed from the proximal portion of the OMB graft extending down to the ramus artery. 2. Endoscopic and open technique harvesting of the greater saphenous vein from the right and left thighs. 3. Insertion of intra-aortic balloon pump through the right femoral artery. Pathology: none sent Surgeon: Denny Solomon Anesthesia: General Complications: Generalized cardiac dysfunction necessitated placement of intra- aortic balloon pump Condition: critical Disposition: ICU Brief History: Mr. Glass is a 69-year-old gentleman with ischemic cardiomyopathy and prior inferior infarction with transmural scarring who presented with increasing dyspnea with exertion and chest discomfort. Subsequent evaluation by Dr. Mansfield included left heart catheterization which revealed severe three-vessel coronary artery disease including total occlusion of the RCA high-grade lesions of the LAD and circumflex system. He has depressed ejection fraction. Options of percutaneous intervention or surgery revascularization were carefully discussed with Mr. Glass, his , Dr. Mansfield, and myself. Details the risk of surgery were carefully discussed including increased risk related to his severe coronary disease, substantial depressed ejection fraction, transmural infarction, and diabetes mellitus. He and family wish to proceed with surgery. Appropriate consents have been reviewed and signed. He is undergone careful preoperative evaluation as well as patient and family education. Procedure: Details and risks of the surgery were carefully and frankly explained to the patient and the family. Particular risks of this surgery carefully reviewed with them included the possibility of , stroke, heart attack, major bleeding, infection, pneumonia, pain, organ failure, failure to benefit, early closure of the bypass grafts, prolonged hospital stay and subsequent need for further procedures. Increased risks for complications secondary to markedly depressed ejection fraction, transmural infarction, multisegment/multivessel coronary artery disease, and diabetes mellitus were carefully reviewed. He and his understand these increased risks. All questions were answered and appropriate consents were reviewed and signed. The patient and the family wished to proceed with plans for attempted surgical revascularization for severe coronary artery bypass. PROCEDURE: Preoperative evaluation was obtained from our Anesthesia colleagues and adequate IVs were confirmed. He was then taken to the Operating Room Suite where general anesthesia was induced. Appropriate invasive monitoring lines were placed, including large bore peripheral IVs, central line, [place]-Blake catheter, Vance catheter and associated monitoring leads. After careful positioning on the Operating Room table, Mr. Glass was subsequently sterilely prepped and draped. Given his known severe cardiac dysfunction, I elected to place a right femoral arterial line to confirm accurate blood pressure monitoring, as well as subsequent access in case of need for aortic balloon pump was required. Next, saphenous vein was harvested by endoscopic and open technique from the right and left thighs. Much of the vein was below average quality, necessitating exploration of both lower extremities to find an adequate length of appropriate quality conduit. Branches were secured with ligature and clips and the vein was extracted from the tunnel without tension. It was then flushed with a Heparin and albumin solution and prepared for grafting. Vein harvest sites were irrigated, platelet poor plasma infused into the tunnel and port sites closed with 3-0 and 4-0 Vicryl Plus suture. Simultaneously with vein harvesting, a median sternotomy was created utilizing a #10 scalpel blade with hemostasis controlled with cautery. After reaching the sternal table, the sternum was divided with a reciprocating saw. Bleeding was controlled with cautery and judicious use of bone wax. Following this, the left chest wall was elevated with a Rultract retractor. The left internal mammary artery was dissected free with branches being secured with clips and cautery. The distal end was left intact. After harvesting of the mammary artery, a left pleural chest tube was then placed. The left chest wall was then lowered and moistened antibiotic-soaked laparotomy pads were placed in the wound, followed by an Ankeney retractor. The sternum was then and the pericardium opened and secured with stay sutures. After inspection, 2-0 pledgeted Ethibond sutures were placed at cannulation sites, at which time he was fully heparinized. Following this, the left internal mammary artery was taken down from its distal attachment, flushed with Papaverine solution, prepared for grafting and brisk flow confirmed. A soft bulldog was applied distally. Next, the heart was cannulated with a 22-Polish aortic cannula, two-stage venous cannula and aortic root vent. The patient was subsequently placed on cardiopulmonary bypass and cooled systemically to 34 degrees. Aortic cross-clamp was then carefully placed and 4 degree Celsius cold blood cardioplegia was administered through the aortic root in antegrade fashion. Prompt diastolic arrest was obtained. Left ventricular decompression was confirmed. The heart was cooled systemically with iced saline with an insulation pad in place to protect the phrenic nerve. Throughout the cross-clamp period, at 20-30 minute intervals, antegrade blood cardioplegia was administered to maintain asystole. We then inspected the cardiac surface and coronary anatomy. There was evidence of transmural infarction of the inferior wall as well as areas of infarction la terally. This would be consistent with prior perfusion studies as well as the coronary pathology noted by angiography. Initially, we turned our attention to the RCA and was able to identify patent a rashmi distally at 1.5 mm in size. Vein was anastomosed distally with 7-0 Prolene suture in a end-to-side fashion and proximally to a 4 mm aortotomy with 5-0 Prolene suture. Flow through this graft appear to be good, but it is noted that the distribution of the RCA does extend into an infarcted region inferiorly. Next, we turned our attention to the lateral wall identifying 2 mm obtuse marginal branch of the circumflex artery. This vessel was opened up, and a second portion of vein was anastomosed distally with running 7-0 Prolene suture in a end-to-side fashion and proximally to a 4 mm aortotomy with 5-0 Prolene suture. We then turned attention to the ramus branch in the anterior lateral position. It was 1.5 mm in size. Third vein was anastomosed distally to this vessel in a end-to-side fashion with running 7-0 Prolene suture and proximally this vessel was anastomosed in a end-to-side fashion to the proximal portion of the OMB graft. With the rewarming phase of bypass continuing, the left internal mammary artery was brought through a left anterior pericardial window into the field. The LAD was opened up in its distal one-third and was approximately 2 mm in size. It was noted to have diffuse disease. The PANDA was then anastomosed to the LAD with a running 7-0 Prolene suture. It should be noted that all distal coronary anastomoses were performed over the appropriate size coronary shunt which was removed prior to securing the distal suture line. Following this, aortic cross- clamp was released and de-airing maneuvers were performed through the aortic root vent, as well as being confirmed by transesophageal echocardiography. Epinephrine was administered with modest inotropic affect. The heart returned to spontaneous sinus rhythm and due to bradycardia was placed in DDD mode at 80 bpm. He did not require cardioversion. After adequate recovery from the cross- clamp period and confirmation of relative cardiac stability, the patient was weaned from bypass with a little difficulty. Venous cannula was removed. Heparin was reversed with Protamine and confirmed by measurement of activated clotting time. The heart was then decannulated and cannulation sites were oversewn as required. Pacing wires were placed and brought through the skin and secured. Two mediastinal drains were placed and connected to Pleur-evac suction. Due to persistently low cardiac index, I elected to place an aortic balloon pump, utilizing the previously placed right femoral artery catheter as an access. We then began full augmentation at one-to-one. This did appear to improve cardiac performance slightly. I elected to place a left femoral arterial line to confirm accuracy of her blood pressure readings as there was some concern related to the readings from the radial line. We carefully observe for bleeding. The wound was carefully irrigated and hemostasis was confirmed. Ankeney retractor was removed and sponge count was correct. Due to an incorrect needle count, intraoperative chest x-ray and x-ray of the lower extremities was performed with no unexpected foreign bodies identified. The sternum was then reapproximated very carefully with interrupted #7 stainless steel wire with Surgicel strips used beneath the sternal table. Fascia was closed with #1 Vicryl suture with the next layers being closed with 2-0 and 3-0 suture. The skin was reapproximated carefully in a subcuticular manner. Sterile dressings were applied, followed by a vacuum-assisted dressing. Mr. Glass was carefully removed from the operating room table and transferred to the Intensive Care Unit. His was then counseled by phone as to the details of the procedure. Dr. Mansfield was notified of our operative findings and procedure details. He was gracious enough to visit with Mr. Glass at bedside
[2020-03-17 20:30] LABS: INR 1.27 (0.8-1.2); Partial Thromboplastin Time 30.7 SECONDS (23.9-36.7)
[2020-03-17 21:00] LABS: ABG PCO2 33.6 mmHg (35-45); ABG PH Result 7.42 (7.35-7.45); Base Excess ABG -2.6 mmol/L (-2.0-2.0); Blood Gas Sample Site ARTLINE; Blood Gas Sample Type Arterial; Blood Gas Tidal Volume 0.6; HCO3 ABG 21.5 mmol/L (22-26); Oxygen Device VENT
[2020-03-17] MEDS: EPINEPHrine 2.5 MG in sodium chloride 0.9% 250 ML 12.1 MG IV (21:40)
[2020-03-17 23:10] LABS: Basophils % 0.1 %; Hematocrit 24.6 % (42.0-52.0); Lymphocytes # 0.9 10^3/uL (0.8-4.8); Lymphocytes % 7.5 %; Mean Corpuscular HGB Conc 32.5 g/dL (30.0-36.0); Mean Corpuscular Hemoglobin 31.7 pg (28.0-34.0); Mean Corpuscular Volume 97.6 fL (80-94); Mean Platelet Volume 10.2 fL (7.4-10.4); Monocytes # 1.7 10^3/uL (0.2-0.9); Monocytes % 13.6 %; Neutrophils # 9.7 10^3/uL (1.8-7.7); Neutrophils % 77.8 %; Nucleated Red Blood Cells % 0 %; Platelet Count 167 10^3/cmm (130-400); Red Blood Count 2.52 10^6/uL (4.1-5.3); Red Cell Distribution Width 14.6 % (12.1-15.1); White Blood Count 12.4 10^3/uL (4.0-10.0)
[2020-03-17 23:21] LABS: Anion Gap 13.1 (5-19); Blood Urea Nitrogen 19 mg/dL (8-23); Carbon Dioxide 21 mmol/L (22-29); Chloride 113 mmol/L (98-107); Glucose 164 mg/dL (65-115); Magnesium 2.5 mg/dL (1.7-2.3); Osmolality Calculated 296 mOsm/kg (285-295); Potassium 4.1 mmol/L (3.5-5.1); Sodium 143 mmol/L (136-145)
[2020-03-17 23:41] LABS: ABG PCO2 36.5 mmHg (35-45); ABG PH Result 7.38 (7.35-7.45)
[2020-03-17 23:43] LABS: Arterial Blood Gas Hematocrit 36.5 % (42-52); HCO3 ABG 21.6 mmol/L (22-26); Oxygen Saturation ABG 99.4; Potassium Level - ABG 4.2 mmol/L (3.5-5.0); Total Hemoglobin 11.9 g/dL (14-18)
[2020-03-17 23:45] LABS: ABG PH Result 7.34 (7.35-7.45)
[2020-03-17 23:46] LABS: HCO3 ABG 21.4 mmol/L (22-26)
[2020-03-17 23:47] LABS: Base Excess ABG -4.1 mmol/L (-2.0-2.0)
[2020-03-17 23:48] LABS: Potassium Level - ABG 4.1 mmol/L (3.5-5.0)
[2020-03-17 23:49] LABS: Total Hemoglobin 11.8 g/dL (14-18)
[2020-03-17 23:50] LABS: ABG PCO2 37.6 mmHg (35-45); ABG PH Result 7.34 (7.35-7.45); Base Excess ABG -4.8 mmol/L (-2.0-2.0); HCO3 ABG 20.5 mmol/L (22-26); Potassium Level - ABG 3.6 mmol/L (3.5-5.0)
[2020-03-17 23:53] LABS: Arterial Blood Gas Hematocrit 35.3 % (42-52)
[2020-03-17 23:56] LABS: ABG PCO2 42.3 mmHg (35-45); ABG PH Result 7.35 (7.35-7.45); Base Excess ABG -1.9 mmol/L (-2.0-2.0); HCO3 ABG 23.5 mmol/L (22-26)
[2020-03-17 23:57] LABS: Arterial Blood Gas Hematocrit 27.6 % (42-52); Potassium Level - ABG 4.4 mmol/L (3.5-5.0)
[2020-03-17 23:58] LABS: ABG PCO2 34.5 mmHg (35-45); ABG PH Result 7.41 (7.35-7.45); Arterial Blood Gas Hematocrit 27.2 % (42-52); Base Excess ABG -2.5 mmol/L (-2.0-2.0); HCO3 ABG 21.8 mmol/L (22-26); Potassium Level - ABG 4.5 mmol/L (3.5-5.0)
[2020-03-17 23:59] LABS: Total Hemoglobin 8.9 g/dL (14-18)
[2020-03-17 23:59] LABS: ABG PCO2 34.3 mmHg (35-45)
[2020-03-18] VITALS (76 sets, daily range): BP systolic 86–146; BP diastolic 41–83; PULSE 57–81; RESP 0–26; TEMP 36.7–37.2; O2SAT 90–98
[2020-03-18] LABS: Arterial Blood Gas Hematocrit 26.8 % (42-52); HCO3 ABG 21.3 mmol/L (22-26); Potassium Level - ABG 4.6 mmol/L (3.5-5.0); Total Hemoglobin 8.8 g/dL (14-18)
[2020-03-18 00:02] LABS: ABG PCO2 37.6 mmHg (35-45); ABG PH Result 7.37 (7.35-7.45); Arterial Blood Gas Hematocrit 26.2 % (42-52); Base Excess ABG -3.5 mmol/L (-2.0-2.0); HCO3 ABG 21.5 mmol/L (22-26); Potassium Level - ABG 4.9 mmol/L (3.5-5.0)
--- NOTE | 2020-03-18 02:08 | ECG_ITS ---
[facility] Test Date: 2020-03-18 Pat Name: Charbel Glass Department: Room: ICU10 Gender: Male Manager Payroll: : 1950 Requested By: Denny Solomon Order Number: [id number] Beckham MD: Nadege Jones M.D. Measurements Intervals [place] Rate: 64 P: [place]: -1 QRS: 142 QRSD: 186 T: -28 QT: 488 QTc: 505 Interpretive Statements ATRIAL FIBRILLATION RIGHT BUNDLE BRANCH BLOCK LEFT POSTERIOR FASCICULAR BLOCK POSSIBLE ANTERIOR MYOCARDIAL INFARCTION, OF INDETERMINATE AGE Compared to ECG 03/17/2020 19:57:29 Right bundle-branch block now present Left posterior fascicular block now present Myocardial infarct finding now present Sinus rhythm no longer present Electronically Signed On 03-19-2020 17:12:43 CDT by Nadege Jones M.D. [email or web address]/[id number] f
--- NOTE | 2020-03-18 02:20 | PC.NURSE ---
0152 bedside EKG changes intermittent episodes of what appeared to be PAC's and junctional rhythm. Rate does decrease into 50's with dysrhythmia, other ott hemodynamically stable. 12 Lead EKG obtained, Dr. Mansfield notified by phone and received orders to titrate amiodarone drip to 0.5. Will continue to monitor.
[2020-03-18] MEDS: propofol 1,000 MG/100 ML INJ 10.2 MG IV (04:40)
[2020-03-18 04:43] LABS: Basophils % 0.1 %; Hematocrit 27.3 % (42.0-52.0); Lymphocytes # 0.9 10^3/uL (0.8-4.8); Mean Corpuscular Hemoglobin 31.9 pg (28.0-34.0); Mean Corpuscular Volume 96.8 fL (80-94); Mean Platelet Volume 10.5 fL (7.4-10.4); Monocytes # 1.5 10^3/uL (0.2-0.9); Monocytes % 12.8 %; Neutrophils # 8.9 10^3/uL (1.8-7.7); Neutrophils % 78.3 %; Nucleated Red Blood Cells % 0 %; Platelet Count 152 10^3/cmm (130-400); Red Blood Count 2.82 10^6/uL (4.1-5.3); Red Cell Distribution Width 14.5 % (12.1-15.1); White Blood Count 11.3 10^3/uL (4.0-10.0)
[2020-03-18 05:11] LABS: Anion Gap 13.6 (5-19); Blood Urea Nitrogen 20 mg/dL (8-23); Carbon Dioxide 20 mmol/L (22-29); Chloride 114 mmol/L (98-107); Glucose 146 mg/dL (65-115); Magnesium 2.3 mg/dL (1.7-2.3); Osmolality Calculated 297 mOsm/kg (285-295); Potassium 3.6 mmol/L (3.5-5.1); Sodium 144 mmol/L (136-145)
[2020-03-18] MEDS: fentaNYL 50 mcg/mL INJ 2mL IVP ×5 (05:14→18:43)
[2020-03-18 05:22] LABS: Glucose Point of Care 112 mg/dL (70-110)
[2020-03-18 05:22] LABS: Glucose Point of Care 146 mg/dL (70-110)
[2020-03-18 05:22] LABS: Glucose Point of Care 124 mg/dL (70-110)
[2020-03-18 05:22] LABS: Glucose Point of Care 152 mg/dL (70-110)
[2020-03-18 05:22] LABS: Glucose Point of Care 134 mg/dL (70-110)
[2020-03-18 05:22] LABS: Glucose Point of Care 151 mg/dL (70-110)
[2020-03-18 05:22] LABS: Glucose Point of Care 153 mg/dL (70-110)
[2020-03-18 05:22] LABS: Glucose Point of Care 152 mg/dL (70-110)
[2020-03-18 05:22] LABS: Glucose Point of Care 160 mg/dL (70-110)
[2020-03-18 05:22] LABS: Glucose Point of Care 142 mg/dL (70-110)
[2020-03-18 05:22] LABS: Glucose Point of Care 135 mg/dL (70-110)
[2020-03-18 05:22] LABS: Glucose Point of Care 133 mg/dL (70-110)
[2020-03-18 05:32] LABS: ABG PCO2 32.6 mmHg (35-45); Alveolar-Arterial Oxygen Gradi 136.1 mmHg (5-10); Arterial Blood Gas Hematocrit 28.7 % (42-52); Base Excess ABG -4.3 mmol/L (-2.0-2.0); Blood Gas Sample Site ARTLINE; Blood Gas Sample Type Arterial; Blood Gas Tidal Volume 0.6; Carboxyhemoglobin 1.1 %THgb (0.4-20.1); HGB O2 Sat 93.2 % (95-100); Ionized Calcium Level - ABG 1.2 mmol/L (1.1-1.4); Methemoglobin 1.1 % (0.4-1.5); Oxygen Device VENT; Oxygen Saturation ABG 95.3; PO2 ABG 68.1 mmHg (80.0-100.0); Potassium Level - ABG 3.4 mmol/L (3.5-5.0); Total Hemoglobin 9.4 g/dL (14-18)
[2020-03-18 05:55] LABS: INR 1.17 (0.8-1.2); Partial Thromboplastin Time 32.7 SECONDS (23.9-36.7)
--- NOTE | 2020-03-18 06:00 | ECG_ITS ---
[facility] Test Date: 2020-03-18 Pat Name: Charbel Glass Department: Room: ICU10 Gender: Male Backup Engineer: : 1950 Requested By: Denny Solomon Order Number: [id number] Beckham MD: Nadege Jones M.D. Measurements Intervals [place] Rate: 64 P: 53 CT: 135 QRS: -9 QRSD: 102 T: -73 QT: 455 QTc: 473 Interpretive Statements SINUS RHYTHM WITH OCCASIONAL VENTRICULAR PREMATURE COMPLEXES LOW QRS VOLTAGE PROBABLE LATERAL MYOCARDIAL INFARCTION, OF INDETERMINATE AGE Compared to ECG 03/18/2020 02:09:35 Ventricular premature complex(es) now present Low QRS voltage now present Atrial fibrillation no longer present Right bundle-branch block no longer present Left posterior fascicular block no longer present Myocardial infarct finding still present Electronically Signed On 03-19-2020 17:24:59 CDT by Nadege Jones M.D. [id number]
--- NOTE | 2020-03-18 06:00 | XRR_ITS ---
PROCEDURE INFORMATION: Exam: XR Chest, 1 View Exam date and time: 03/18/2020 3:20 AM Age: 69 years old Clinical indication: Device placement; Other: S/P cabg/ cardiomyopathy; Prior surgery; Surgery date: Post-operative (0-2 days) TECHNIQUE: Imaging protocol: XR of the chest Views: 1 view. COMPARISON: CR XR chest 1V portable [id number] 03/17/2020 7:30 PM FINDINGS: Tubes, catheters and devices: Endotracheal tube above the terri Thoracotomy tube on the left directed to the apex. mediastinal drainage catheter Petros-Blake catheter with the tip in the right pulmonary artery Central venous catheter via the right jugular approach with the tip projecting over the superior vena cava. Lungs: Parenchymal opacity in the left retrocardiac region- atelectasis versus infiltrate. Favor atelectasis. Small pleural effusion. Pleural space: See Lungs finding. Heart/Mediastinum: Cardiomegaly with mild postoperative edema. Bones/joints: Status post thoracotomy/bypass. XR/XR chest 1V portable [id number] IMPRESSION: Parenchymal opacity in the left retrocardiac region- atelectasis versus infiltrate. Favor atelectasis. Small pleural effusion. Cardiomegaly. No overt edema status post sternotomy.
[2020-03-18] MEDS: potassium chloride premix 40 MEQ/100 ML PREMIX 25 MEQ IV (06:01)
[2020-03-18] MEDS: EPINEPHrine 2.5 MG in sodium chloride 0.9% 250 ML 9.1 MG IV (06:26)
--- NOTE | 2020-03-18 06:44 | PM.PN ---
Subjective Subjective: Interval history: Postop day #1 status post CABG x4 Had a rather uneventful night. Cardiac index and hemodynamic parameters continue to improve throughout the night. He has awakened and is responding appropriately to questions. Remains intubated. Intake and output is up to 3.5 L, though I suspect he probably was intravascularly volume depleted upon return from the OR to the ICU. Chest tube output just under 400 cc since arrival from the OR. Chest x-ray reveals cardiomegaly but is otherwise clear. His radial arterial line is now working, therefore we have removed his left femoral arterial line. I also elected to remove his introverted balloon pump. There was a dip in his cardiac index with balloon pump removal though he is still, I suspect, volume depleted and needs a higher driving force given his large transmural anterior wall infarction. We will also transfuse 1 unit packed RBCs. Vitals/I&O/Wt Last Vital Signs Temp 98.4 F 03/18/20 06:36 Pulse 57 L 03/18/20 06:36 Resp 17 03/18/20 06:36 BP 106/58 03/18/20 06:36 Pulse Ox 95 03/18/20 06:36 03/17/20 03/17/20 03/18/20 14:59 22:59 06:59 Intake Total 440 / 440 1270 / 1710 4283.416 / 5993.416 Output Total 466 / 466 1999 / 2465 Balance 440 / 440 804 / 1244 2283.416 / 3527.416 Weight last 48 hrs Weight 250 lb Physical Exam Chest: COMMONS NORMALS: normal inspection of the chest (Stable, surgical dressings in place.) Resp: COMMON NORMALS: clear to auscultation bilaterally (Remains mechanically ventilated. FiO2 40%) AUSCULTATION: clear to auscultation bilaterally (Remains mechanically ventilated. FiO2 40%) Cardio: OTHER: He does have varying rates from the low 60s up to the 80s. He also has been noted to have what appears to be a period of junctional rhythm last night. There was a 5 beat run of V. tach as well as some PVCs with compensatory pauses This morning, he appears to be relatively regular in the mid to upper 60s. Urinary Catheter Management^: Vance: Cath Placed During This Visit: yes Reason for Continuing Indwelling Catheter: Accurate Measurement of Urinary Output in Critically Ill Patients Urinary Catheter Date of Insertion: 03/17/20 Urinary Catheter Time of Insertion: 08:23 Data : 03/18/20 04:00 03/18/20 04:00 A&P Assessment and plan (1) Status post aorto-coronary artery bypass graft: Postop day 1 status post CABG x4. Left femoral line and right femoral intra-aortic balloon pump have been removed. Plan: Volume replacement with 1 unit packed RBCs. I suspect he may require more volume loading through the day secondary to third spacing of fluid. CBC, BMP, chest x-ray in a.m. Status: Acute Attestations Medical Necessity Statement*: Status post CABG x4 with ischemic cardiomyopathy. Time Spent in Patient Care: Greater than 35 minutes Critical Care Time: Critical Care Time (min): 50 Coding Level of Care Code Acute Deckhand Sponge Boat for Chg Fwd Diagnoses Status post aorto-coronary artery bypass graft Z95.1
--- NOTE | 2020-03-18 06:50 | PC.NURSE ---
Report received from Nicola RN and Cyndi RN. Care assumed. Pt had a good. night. Balloon pump removed. Right femoral removed. Pt now supine, HOP elevation contraindicated at this time. Neosynephrine off around 2100. Epiephrine gtt decreased to 1.5mcg/min. Fourth (total) PPRBCs infusing, lab notified for 2 more for stand by. K-rider 40mEq infusing. Pt has Propofol at 15mcg/kg/min, Amiodarone at 0.5mg/min and IV fluid at 75ml/hr, in addition to previously mentioned gtts. Chest tubes patent and draining. Wound vac patent. Swanz Blake at 50, patent. central line, all ports patent. Art line, right wrist, patent with good waveform. Pacemaker has been off all night. Pt remains on vent, blistered noted mid upper lip.
--- NOTE | 2020-03-18 06:50 | PC.NURSE ---
IABP Dr. Ladd at bedside at pulled IABP from right femoral artery. Pressure held for 30minutes until hemostasis acheived. Site covered with 4x4 gauze and tegaderm. Left femoral arterial line removed at this time. Pressure applied until hemostasis acheived. Dressed with 4X4 gauze and tegaderm.
--- NOTE | 2020-03-18 07:30 | PC.NURSE ---
Mirna Lozano noted at 50. Pt frequently moves right leg and needs to be reminded to hold it still post balloon pump removal.
--- NOTE | 2020-03-18 08:18 | PC.NURSE ---
Blood infusion vitals: see hemodynamic flow sheet.
[2020-03-18] MEDS: lanolin oint 7 gm 1 APPLIC TOPICAL ×3 (09:20→17:38)
[2020-03-18] MEDS: pantoprazole 40 mg SDV IVP ×2 (09:23→21:28)
[2020-03-18] MEDS: aspirin 325 mg Tablet PO (09:23)
[2020-03-18] MEDS: chlorhexidine gluconate 0.12% Btl 473 mL 15 ML MUCOUS MEM ×2 (09:24→17:37)
[2020-03-18 12:03] LABS: Glucose Point of Care 115 mg/dL (70-110)
[2020-03-18 12:03] LABS: Glucose Point of Care 127 mg/dL (70-110)
[2020-03-18 12:03] LABS: Glucose Point of Care 117 mg/dL (70-110)
[2020-03-18 12:03] LABS: Glucose Point of Care 123 mg/dL (70-110)
[2020-03-18 12:03] LABS: Glucose Point of Care 123 mg/dL (70-110)
[2020-03-18 12:03] LABS: Glucose Point of Care 112 mg/dL (70-110)
[2020-03-18 12:03] LABS: Glucose Point of Care 129 mg/dL (70-110)
--- NOTE | 2020-03-18 12:08 | PC.NURSE ---
Dr Donal garnett. Discussed pt's progress. informed of occasional heart block beats on heart rhythm that do not affect perfusion per Art line and PA waveforms. Dr springer.
[2020-03-18 12:42] LABS: Blood Gas Sample Type Arterial; Carboxyhemoglobin 0.4 %THgb (0.4-20.1); HGB O2 Sat 99.4 % (95-100); Ionized Calcium Level - ABG 1.2 mmol/L (1.1-1.4); Methemoglobin 0.5 % (0.4-1.5)
[2020-03-18 12:46] LABS: Blood Gas Sample Type Arterial; Carboxyhemoglobin 0.4 %THgb (0.4-20.1); HGB O2 Sat 99.3 % (95-100); Ionized Calcium Level - ABG 1.1 mmol/L (1.1-1.4); Methemoglobin 0.6 % (0.4-1.5); Total Hemoglobin 11.5 g/dL (14-18)
[2020-03-18 12:46] LABS: Blood Gas Sample Type Arterial; Carboxyhemoglobin 0.4 %THgb (0.4-20.1); HGB O2 Sat 99.2 % (95-100); Ionized Calcium Level - ABG 1.2 mmol/L (1.1-1.4); Methemoglobin 0.5 % (0.4-1.5)
[2020-03-18 12:47] LABS: Blood Gas Sample Site Not specified; Blood Gas Sample Type Arterial; Carboxyhemoglobin 0.4 %THgb (0.4-20.1); Ionized Calcium Level - ABG 1.1 mmol/L (1.1-1.4)
[2020-03-18 12:54] LABS: Blood Gas Sample Type Arterial; Carboxyhemoglobin 0.5 %THgb (0.4-20.1); HGB O2 Sat 99.1 % (95-100); Ionized Calcium Level - ABG 1.1 mmol/L (1.1-1.4); Methemoglobin 0.6 % (0.4-1.5)
[2020-03-18 12:55] LABS: Blood Gas Sample Type Arterial; Carboxyhemoglobin 0.5 %THgb (0.4-20.1); HGB O2 Sat 99.1 % (95-100); Ionized Calcium Level - ABG 1.1 mmol/L (1.1-1.4); Methemoglobin 0.8 % (0.4-1.5)
[2020-03-18 12:56] LABS: Blood Gas Sample Type Arterial; Carboxyhemoglobin 0.7 %THgb (0.4-20.1); HGB O2 Sat 99.1 % (95-100); Ionized Calcium Level - ABG 1.1 mmol/L (1.1-1.4); Methemoglobin 0.7 % (0.4-1.5)
[2020-03-18 12:57] LABS: Blood Gas Sample Type Arterial; Carboxyhemoglobin 0.7 %THgb (0.4-20.1); HGB O2 Sat 98.8 % (95-100); Ionized Calcium Level - ABG 1.1 mmol/L (1.1-1.4); Methemoglobin 0.8 % (0.4-1.5); Total Hemoglobin 8.6 g/dL (14-18)
[2020-03-18 13:07] LABS: ABG PCO2 42.2 mmHg (35-45); ABG PH Result 7.37 (7.35-7.45); Base Excess ABG -1.3 mmol/L (-2.0-2.0); HCO3 ABG 24.1 mmol/L (22-26); Potassium Level - ABG 4.1 mmol/L (3.5-5.0)
[2020-03-18 13:08] LABS: Arterial Blood Gas Hematocrit 28.4 % (42-52); HGB O2 Sat 99.3 % (95-100); Methemoglobin 0.6 % (0.4-1.5); Total Hemoglobin 9.3 g/dL (14-18)
[2020-03-18] MEDS: albumin 12.5 GM/250 ML VIAL IV ×2 (13:09→14:52)
[2020-03-18 13:18] LABS: ABG PCO2 40.8 mmHg (35-45); ABG PH Result 7.32 (7.35-7.45); Arterial Blood Gas Hematocrit 30.5 % (42-52); Base Excess ABG -4.6 mmol/L (-2.0-2.0); Blood Gas Sample Site Not specified; Blood Gas Sample Type Arterial; Carboxyhemoglobin 0.4 %THgb (0.4-20.1); HCO3 ABG 21.1 mmol/L (22-26); HGB O2 Sat 98.7 % (95-100); Ionized Calcium Level - ABG 1.1 mmol/L (1.1-1.4); Potassium Level - ABG 4.3 mmol/L (3.5-5.0)
[2020-03-18 13:19] LABS: ABG PCO2 43.5 mmHg (35-45); ABG PH Result 7.34 (7.35-7.45); Arterial Blood Gas Hematocrit 27.7 % (42-52); Base Excess ABG -2.1 mmol/L (-2.0-2.0); Blood Gas Sample Type Arterial; Carboxyhemoglobin 0.6 %THgb (0.4-20.1); HCO3 ABG 23.6 mmol/L (22-26); HGB O2 Sat 98.1 % (95-100); Ionized Calcium Level - ABG 1.2 mmol/L (1.1-1.4); Oxygen Saturation ABG 99.7; Potassium Level - ABG 4.6 mmol/L (3.5-5.0)
[2020-03-18 13:20] LABS: ABG PCO2 39.8 mmHg (35-45); Arterial Blood Gas Hematocrit 28.6 % (42-52); Base Excess ABG -0.1 mmol/L (-2.0-2.0); Blood Gas Sample Type Arterial; Carboxyhemoglobin 0.7 %THgb (0.4-20.1); HCO3 ABG 24.7 mmol/L (22-26); HGB O2 Sat 99.1 % (95-100); Ionized Calcium Level - ABG 1.3 mmol/L (1.1-1.4); Methemoglobin 0.7 % (0.4-1.5); Potassium Level - ABG 4.8 mmol/L (3.5-5.0); Total Hemoglobin 9.3 g/dL (14-18)
[2020-03-18 13:21] LABS: ABG PCO2 38.3 mmHg (35-45); ABG PH Result 7.43 (7.35-7.45); Base Excess ABG 1.2 mmol/L (-2.0-2.0); Blood Gas Sample Type Arterial; Carboxyhemoglobin 0.9 %THgb (0.4-20.1); HCO3 ABG 25.5 mmol/L (22-26); HGB O2 Sat 98.7 % (95-100); Ionized Calcium Level - ABG 1.2 mmol/L (1.1-1.4); Methemoglobin 0.9 % (0.4-1.5); Potassium Level - ABG 4.9 mmol/L (3.5-5.0); Total Hemoglobin 8.1 g/dL (14-18)
[2020-03-18] MEDS: oxyCODONE-APAP 5-325 mg Tablet PO ×2 (13:22→21:26)
[2020-03-18] MEDS: sodium chloride 0.9% 1,000 ML 75 ML IV (13:36)
[2020-03-18] MEDS: cefUROXime 1,500 MG in sodium chloride 0.9% (plus) 50 ML 100 MG IV (14:53)
--- NOTE | 2020-03-18 16:00 | PC.NURSE ---
Pt extubated. OG removed. Pt tolerating very well. On 4lpm/NC.
[2020-03-18 16:01] LABS: Glucose Point of Care 91 mg/dL (70-110)
[2020-03-18 16:01] LABS: Glucose Point of Care 92 mg/dL (70-110)
[2020-03-18 16:01] LABS: Glucose Point of Care 87 mg/dL (70-110)
[2020-03-18 16:01] LABS: Glucose Point of Care 90 mg/dL (70-110)
--- NOTE | 2020-03-18 16:38 | PC.OT ---
OT note: Per chart review pt was still intubated this morning. Pt just recently extubated, OT will attempt later as able.
[2020-03-18 17:20] LABS: Glucose Point of Care 101 mg/dL (70-110)
--- NOTE | 2020-03-18 17:36 | PM.PN ---
Subjective Subjective: Interval history: Overall patient has slightly rough night but stable vital ott this morning balloon pump is off at the same time he is off the pressors Medications: Reviewed: Yes Vitals/I&O/Wt Last Vital Signs Temp 98.6 F 03/18/20 09:55 Pulse 71 03/18/20 16:05 Resp 22 H 03/18/20 16:12 BP 125/66 03/18/20 16:05 Pulse Ox 93 03/18/20 16:12 03/18/20 03/18/20 03/18/20 06:59 14:59 22:59 Intake Total 4283.416 / 5993.416 972.572 / 972.572 300 / 1272.572 Output Total 1999 663 / 663 128 / 791 Balance 2283.416 / 3527.416 309.572 / 309.572 172 / 481.572 Physical Exam Narrative: EXAM NARRATIVE: GENERAL: Patient is intubated and sedated with chest tubes in place NECK: No jugular vein distension. HEENT: No cyanosis. No icterus. No pallor. HEART: Regular S1 and S2. No murmur, rub or gallop. LUNGS: Clear to auscultate bilaterally. ABDOMEN: Soft, nontender and nondistended. Positive bowel sounds. No guarding, rebound or tenderness. CENTRAL NERVOUS SYSTEM: Cannot assess due to sedation eXTREMITIES: Lower extremities with without bilaterally. Urinary Catheter Management^: Vance: Cath Placed During This Visit: yes Reason for Continuing Indwelling Catheter: Accurate Measurement of Urinary Output in Critically Ill Patients Urinary Catheter Date of Insertion: 03/17/20 Urinary Catheter Time of Insertion: 08:23 Data : 03/18/20 04:00 03/18/20 04:00 A&P Assessment and plan (1) CAD (coronary artery disease): Status post CABG. Continue current regimen. Continue as per CT surgery. Status: Acute Qualifiers: Coronary Disease-Associated Artery/Lesion type: [place] artery [place] vs. transplanted heart: [place] heart Associated angina: with unstable angina Qualified Code(s): I25.110 - Atherosclerotic heart disease of [place] coronary artery with unstable angina pectoris (2) SVT (supraventricular tachycardia): Patient was started on amiodarone as due to moderately depressed LV function fearr was if he goes into A. fib he will lose atrial kick Status: Acute Attestations Medical Necessity Statement*: Patient require continuation hospitalization for above defined care Coding Level of Care Code Established Pt Acute Instructor Watch Assembly for Chg Fwd Patient Type Established History Expanded Problem Focused Exam Expanded Problem Focused Medical Decision Making Moderate Complexity Diagnoses CAD (coronary artery disease) I25.110 Coronary Disease-Associated Artery/Lesion type: [place] artery [place] vs. transplanted heart: [place] heart Associated angina: with unstable angina SVT (supraventricular tachycardia) I47.1
[2020-03-18 17:55] LABS: Hematocrit 28.9 % (42.0-52.0); Hemoglobin 9.5 g/dL (11.7-16.6)
[2020-03-18 18:06] LABS: Blood Urea Nitrogen 17 mg/dL (8-23); Calcium 8.3 mg/dL (8.5-10.5); Carbon Dioxide 20 mmol/L (22-29); Chloride 115 mmol/L (98-107); Glucose 93 mg/dL (65-115); Osmolality Calculated 294 mOsm/kg (285-295); Sodium 144 mmol/L (136-145)
[2020-03-18 18:29] LABS: Glucose Point of Care 87 mg/dL (70-110)
[2020-03-18] MEDS: FUROsemide 10 mg/mL SDV 2mL 20 MG IVP (18:45)
--- NOTE | 2020-03-18 19:20 | PC.NURSE ---
Report given to Cyndi RN and Radha RN. Pt alert and oriented x4. Pleasant and cooperative. Heart rhythm has been mostly sinus, he does have occasional ectopy, physicians aware. He was extubated at 1600 to 4lpm/NC, tolerating well. Wound vac started a small leak shortly after extubation. Chest tubes patent and draining. 110 and 140. Pacemaker has been off all day. Bowel sounds x 4. Pt has had liquids and Jello, tolerated well. Art line patent with good waveform. Swanz patent with good waveform. Central line patent, good blood draw inn all 3 ports. Abiel wraps still around legs. radial pulses palpable . Pedal pulses now palpable. Hbg/Hct drawn after 1700 : 9.5/28.9. Dr Solomon aware, ordered 1 more unit of PRBCs to be admin, 20 mg of Lasix, Cordis/Swanz may could be removed after blood , Dangle feet off bed later. Insulin gtt, Amiodarone gtt and IV fluids still infusing. His Cardiac Index and Arterial MAP on the soft side earlier this afternoon, He received Albumin, x2.
--- NOTE | 2020-03-18 19:30 | PC.NURSE ---
Wound Vac leak: more Wound vac Biocclusive applied. Leak resolved.
--- NOTE | 2020-03-18 21:00 | PC.NURSE ---
Dangle feet Pt assisted to side of bed to dangle feet. Pt educated on sternal precautions. Tolerated well. 30ml total received out of chest tubes during positional changes. [place] remains in, measurement still at 50. Another leak present on wound vac therapy after activity, patched areas and leak now resolved. Complete linen change preformed at this time.
[2020-03-18] MEDS: atorvastatin 40 mg Tablet 20 MG PO (21:27)
--- NOTE | 2020-03-18 22:44 | PC.NURSE ---
Grand[place] Blake Grandville blake removed at time per orders of Dr. Ladd. Cardiac Index 2.6 and cardic output 6.2 at time of removal. Patient layed flat during procedure, swanz pulled without difficulty. Cardiac rhythm had few beats of pvc during removal. Cordis remains as per orders of Julee. Cordis capped and area cleansed with chlorhexidine and sterile tegaderm applied over cordis and central line. Pt tolerated well.
[2020-03-18] MEDS: nitroglycerin drip 50 MG/250 ML PREMIX IV (23:29)
--- NOTE | 2020-03-18 23:35 | PC.NURSE ---
Nitro Drip Started at 10mcg/min for consistent systolic pressure > 140. Current BP 144/74.
[2020-03-19] VITALS (38 sets, daily range): BP systolic 90–155; BP diastolic 52–84; PULSE 70–134; RESP 0–27; TEMP 36.4–37.3; O2SAT 89–97
[2020-03-19] MEDS: fentaNYL 50 mcg/mL INJ 2mL IVP (01:24)
[2020-03-19] MEDS: morphine 4 mg/mL SDV 1 mL 2 MG IVP (02:22)
[2020-03-19] MEDS: cefUROXime 1,500 MG in sodium chloride 0.9% (plus) 50 ML 100 MG IV ×2 (03:06→13:58)
[2020-03-19] MEDS: sodium chloride 0.9% 1,000 ML 75 ML IV (03:06)
[2020-03-19] MEDS: oxyCODONE-APAP 5-325 mg Tablet PO ×4 (03:30→23:59)
--- NOTE | 2020-03-19 04:00 | PC.NURSE ---
Physician Notified Low consistent SPO2 89% on 4L NC, pt is not symptomatic or short of breath. Lung sounds are diminished. Pt has been pulling 1500-2000ml Tidal volume on IS throughout the night. BP has been hypertensive 145-150 systolic/ 60 diastolic with Nitroglycerin 75mcg/min. Suspecting volume overload, urine output [address] Solomon notified at this time and received orders for Lasix 20mg IV X 1. Home meds losartan 100mg po daily first dose now, metoprolol 12.5 po BID first dose now, and intermittent Bipap RT to titrate.
[2020-03-19 04:01] LABS: Basophils % 0.2 %; Eosinophils % 0.2 %; Hematocrit 30.8 % (42.0-52.0); Lymphocytes # 2.2 10^3/uL (0.8-4.8); Lymphocytes % 16.3 %; Mean Corpuscular HGB Conc 32.5 g/dL (30.0-36.0); Mean Corpuscular Hemoglobin 30.6 pg (28.0-34.0); Mean Corpuscular Volume 94.2 fL (80-94); Mean Platelet Volume 10.7 fL (7.4-10.4); Monocytes # 1.8 10^3/uL (0.2-0.9); Monocytes % 13.7 %; Neutrophils # 9.09 10^3/uL (1.8-7.7); Neutrophils % 68.5 %; Nucleated Red Blood Cells % 0 %; Platelet Count 96 10^3/cmm (130-400); Red Blood Count 3.27 10^6/uL (4.1-5.3); Red Cell Distribution Width 15.8 % (12.1-15.1); White Blood Count 13.3 10^3/uL (4.0-10.0)
[2020-03-19] MEDS: metoprolol tartrate 25 mg Tablet 12.5 MG PO ×2 (04:11→17:28)
[2020-03-19] MEDS: losartan 50 mg Tablet 100 MG PO (04:11)
[2020-03-19] MEDS: FUROsemide 10 mg/mL SDV 2mL 20 MG IVP (04:12)
[2020-03-19 04:47] LABS: Anion Gap 11.5 (5-19); Blood Urea Nitrogen 15 mg/dL (8-23); Calcium 8.4 mg/dL (8.5-10.5); Carbon Dioxide 23 mmol/L (22-29); Chloride 109 mmol/L (98-107); Glucose 100 mg/dL (65-115); Osmolality Calculated 286 mOsm/kg (285-295); Potassium 3.5 mmol/L (3.5-5.1); Sodium 140 mmol/L (136-145)
[2020-03-19] MEDS: potassium chloride premix 40 MEQ/100 ML PREMIX 25 MEQ IV (05:35)
--- NOTE | 2020-03-19 06:00 | XRR_ITS ---
PROCEDURE INFORMATION: Exam: XR Chest, 1 View Exam date and time: 03/19/2020 6:09 AM Age: 69 years old Clinical indication: Condition or disease; Other: Post op day #2 S/P cabg; Additional info: Postop day #2 status post cabg TECHNIQUE: Imaging protocol: XR of the chest Views: 1 view. COMPARISON: CR XR chest 1V portable [id number] 03/18/2020 3:08 AM FINDINGS: Tubes, catheters and devices: Central venous cordis via the jugular approach with the tip in the superior vena cava. Central venous catheter via the right jugular approach with the tip projecting over the superior vena cava. Thoracotomy tube on the left directed to the apex. Lungs: Mild basilar atelectasis bilaterally. Small subpulmonic effusions. Pleural space: See Lungs finding. Heart/Mediastinum: Unremarkable. No cardiomegaly. Bones/joints: Prior sternotomy XR/XR chest 1V portable [id number] IMPRESSION: Mild basilar atelectasis bilaterally. Small subpulmonic effusions.
--- NOTE | 2020-03-19 06:08 | PM.PN ---
Subjective Subjective: Interval history: Postop day #2 status post CABG with cardiomyopathy Had a bit of respiratory strain last night, responded well to diuresis as well as intermittent BiPAP. Looks good this morning at about to get up in chair. Intake and output is about even though his chest tube output is 4 and 35 cc. H&H is stable. He did receive 1 more unit of packed RBCs overnight. Platelet count has drifted down to below 100,000. Sternotomy discomfort appears to be under good control. Peripheral edema slightly improved. No arrhythmias. Vitals/I&O/Wt Last Vital Signs Temp 98.4 F 03/19/20 03:00 Pulse 70 03/19/20 05:00 Resp 18 03/19/20 05:00 BP 128/58 03/19/20 05:00 Pulse Ox 94 03/19/20 05:00 03/18/20 03/18/20 03/19/20 14:59 22:59 06:59 Intake Total 972.572 / 853.733 0428 / 2072.572 1389.497 / 3462.069 Output Total 663 / 663 1768 / 2431 1360 / 3791 Balance 309.572 / 309.572 -668 / -358.428 29.497 / -328.931 Physical Exam Chest: COMMONS NORMALS: normal inspection of the chest (Sternum stable. Surgical dressings in place. Wound VAC in position.) Resp: COMMON NORMALS: No retractions and No use of accessory muscles AUSCULTATION: diminished lung sounds bilateral in the lower lung cooley Cardio: COMMON NORMALS: regular rate, regular rhythm and No murmurs present (Cardio) RATE: regular rate RHYTHM: regular rhythm Extremity: GENERAL: Yes edema Urinary Catheter Management^: Vance: Cath Placed During This Visit: yes Reason for Continuing Indwelling Catheter: Accurate Measurement of Urinary Output in Critically Ill Patients Urinary Catheter Date of Insertion: 03/17/20 Urinary Catheter Time of Insertion: 08:23 Data : 03/19/20 03:30 03/19/20 03:30 A&P Assessment and plan (1) Status post aorto-coronary artery bypass graft: Postop day #2 status post CABG. Plan: DC Cordis. DC the IV amiodarone. P.o. amiodarone 40 mg twice daily. DC Cordis. DC arterial line. DC IV insulin. Medium sliding insulin scale with meals and nightly. KVO IV fluids. Out of bed in chair. CBC, BMP, chest x-ray in a.m. Greatly appreciate expertise and oversight by Dr. Mansfield. Status: Acute Attestations Medical Necessity Statement*: Postop day #2 status post CABG Time Spent in Patient Care: 16 - 35 minutes Coding Level of Care Code Acute Feather Edger for Chg Fwd Diagnoses Status post aorto-coronary artery bypass graft Z95.1
--- NOTE | 2020-03-19 06:42 | PC.NURSE ---
Right jugular Cordis removed. Pressure held until hemostasis acheived. Catheter intact, site asymptomatic. Pt tolerated well. Dressed with sterile gauze and tegaderm. Right internal jugular central line remains. Right radial art line discontinued per orders. Pressure held until hemostasis acheived. catheter intact, site asymptomatic. dry sterile dressing applied.
--- NOTE | 2020-03-19 07:30 | PC.NURSE ---
RECEIVED REPORT FROM AMINATA WAYNE. CORDIS/SWSHAMAR/RIGHT RADIAL LINES REMOVED @ APPROXIMATELY 0630. TOLERATED WELL, NO ACTIVE BLEEDING NOTED. PT A& O X3, DENIES ANY SIGNIFICANT PAIN. SBA TO GET OUT OF BED TO CHAIR. TOLERATED WELL. NITRO DRIP INFUSING @ 30MCG/MIN. IVF @KVO. WATER CHAMBER CHANGED OUT BY LOADING AND UNLOADING SUPERVISOR. WOUND VAC @125MMHG CONTINUOUS THERAPY.
[2020-03-19 08:18] LABS: Glucose Point of Care 119 mg/dL (70-110)
[2020-03-19 08:18] LABS: Glucose Point of Care 101 mg/dL (70-110)
[2020-03-19 08:18] LABS: Glucose Point of Care 100 mg/dL (70-110)
[2020-03-19 08:18] LABS: Glucose Point of Care 124 mg/dL (70-110)
[2020-03-19 08:19] LABS: Glucose Point of Care 136 mg/dL (70-110)
[2020-03-19 08:19] LABS: Glucose Point of Care 91 mg/dL (70-110)
[2020-03-19 08:19] LABS: Glucose Point of Care 88 mg/dL (70-110)
[2020-03-19 08:19] LABS: Glucose Point of Care 98 mg/dL (70-110)
[2020-03-19 08:19] LABS: Glucose Point of Care 91 mg/dL (70-110)
[2020-03-19 08:19] LABS: Glucose Point of Care 110 mg/dL (70-110)
[2020-03-19 08:19] LABS: Glucose Point of Care 93 mg/dL (70-110)
[2020-03-19 08:19] LABS: Glucose Point of Care 94 mg/dL (70-110)
[2020-03-19] MEDS: pantoprazole 40 mg SDV IVP ×2 (08:52→20:46)
[2020-03-19] MEDS: amiodarone 200 mg Tablet PO ×2 (08:53→17:28)
[2020-03-19] MEDS: chlorhexidine gluconate 0.12% Btl 473 mL 15 ML MUCOUS MEM ×2 (08:54→20:58)
[2020-03-19] MEDS: aspirin 325 mg Tablet PO (08:54)
--- NOTE | 2020-03-19 10:00 | PC.NURSE ---
DR RICHARDSON AT BEDSIDE TO ROUND. NO CHANGES TO BE MADE. WILL DISCONTINUE AMIODARONE INFUSION AT 1200 TO ALLOW ABSORPTION OF PO DOSE. WILL TAPER OFF NITRO DRIP. KADEN FROM OR HERE TO HELP FIX SEAL TO WOUND VAC.
--- NOTE | 2020-03-19 10:56 | P.PN_ITS ---
Subjective Subjective: Interval history: Patient extubated yesterday stable hemodynamically. He has been switched to p.o. amiodarone this morning. Medications: Reviewed: Yes Vitals/I&O/Wt Last Vital Signs Temp 97.8 F 03/19/20 09:00 Pulse 77 03/19/20 10:00 Resp 21 H 03/19/20 10:00 BP 132/65 03/19/20 10:00 Pulse Ox 95 03/19/20 10:00 03/18/20 03/19/20 03/19/20 22:59 06:59 14:59 Intake Total 1100 / 2072.572 1404.097 / 3476.669 480 / 480 Output Total 1768 / 2431 1560 / 3991 62 / 62 Balance -668 / -358.428 -155.903 / -514.331 418 / 418 Physical Exam Narrative: EXAM NARRATIVE: GENERAL: Patient is alert awake and oriented x3 sitting in the chair, sternotomy scar under vacuum bandage NECK: No jugular vein distension. HEENT: No cyanosis. No icterus. No pallor. HEART: Regular S1 and S2. No murmur, rub or gallop. LUNGS: Clear to auscultate bilaterally. ABDOMEN: Soft, nontender and nondistended. Positive bowel sounds. No guarding, rebound or tenderness. CENTRAL NERVOUS SYSTEM: Nonfocal Extremities: Trace edema with palpable pulses Urinary Catheter Management^: Vance: Cath Placed During This Visit: yes Reason for Continuing Indwelling Catheter: Accurate Measurement of Urinary Outp ut in Critically Ill Patients Urinary Catheter Date of Insertion: 03/17/20 Urinary Catheter Time of Insertion: 08:23 Data : 03/19/20 03:30 03/19/20 03:30 A&P Assessment and plan (1) Status post aorto-coronary artery bypass graft: Post CABG day 2 status post extubation doing fine from a cardiovascular perspective. Beta-ana n.p.o. meds along with ARB added. Physical therapy in place Status: Acute Attestations Medical Necessity Statement*: Patient requires continuation of hospitalization for above defined care Coding Level of Care Code Established Pt Acute Electric Tool Repairer for Gregoriog Fwd Patient Type Established History Expanded Problem Focused Exam Expanded Problem Focused Medical Decision Making Moderate Complexity Diagnoses Status post aorto-coronary artery bypass graft Z95.1
[2020-03-19 11:27] LABS: Glucose Point of Care 247 mg/dL (70-110)
[2020-03-19 16:59] LABS: Glucose Point of Care 228 mg/dL (70-110)
--- NOTE | 2020-03-19 18:08 | PC.NURSE ---
DR RICHARDSON NOTIFIED OF RHYTHM CHANGE PT WENT INTO AFIB W/ RVR, NEW ORDER RECEIVED FOR AMIODARONE 1MG SET RATE
--- NOTE | 2020-03-19 18:10 | ECG_ITS ---
[facility] Test Date: 2020-03-19 Pat Name: Charbel Glass Department: Room: ICU10 Gender: Male Linen Manager: : [id number] Requested By: Denny Solomon Order Number: [id number] Beckham MD: Nadege Jones M.D. Measurements Intervals Hematite Rate: 150 P: ME: -1 QRS: -22 QRSD: 101 T: -87 QT: 309 QTc: 489 Interpretive Statements ATRIAL FIBRILLATION WITH RAPID VENTRICULAR RESPONSE LOW QRS VOLTAGE IN PRECORDIAL LEADS [QRS DEFLECTION < 1.0 mV IN CHEST LEADS] POSSIBLE RIGHT VENTRICULAR CONDUCTION DELAY [RSR (QR) IN V1/V2] Compared to ECG 03/18/2020 05:41:54 Sinus rhythm no longer present Ventricular premature complex(es) no longer present Myocardial infarct finding no longer present Electronically Signed On 03-19-2020 22:30:32 CDT by Nadege Jones M.D. [email or web address]
--- NOTE | 2020-03-19 19:04 | PC.NURSE ---
1800- A-FIB W/ RVR RATE 150'S DR RICHARDSON NOTIFIED, NEW ORDER RECEIVED FOR AMIODARONE DRIP NO BOLUS, START @1MG/MIN DR RUIZ NOTIFIED, HOLD PO LASIX, CLARIFY AMIODARONE DRIP W/ DR RICHARDSON.
--- NOTE | 2020-03-19 19:08 | PC.NURSE ---
DR RICHARDSON NOTIFIED OF VS, NEW ORDERS RECEIVED AMIODARONE [id number] THEN DROP TO 0.5MG/MIN, IF HR NOT BELOW 100 BPM, CALL DR RICHARDSON BEFORE DECREASING DOSE. GIVE METOPROLOL 25MG PO NOW AMINATA WAYNE NOTIFIED OF CHANGES IN ORDERS
[2020-03-19] MEDS: metoprolol tartrate 25 mg Tablet PO (19:37)
[2020-03-19 20:26] LABS: Glucose Point of Care 236 mg/dL (70-110)
[2020-03-19] MEDS: atorvastatin 40 mg Tablet 20 MG PO (20:45)
[2020-03-19] MEDS: sodium chloride 0.9% 250 ML IV (23:26)
[2020-03-20] VITALS (27 sets, daily range): BP systolic 105–140; BP diastolic 60–94; PULSE 68–121; RESP 0–29; TEMP 36.8–37.4; O2SAT 95–100
[2020-03-20] MEDS: sodium chloride 0.9% 1,000 ML 100 ML IV
--- NOTE | 2020-03-20 03:49 | PC.NURSE ---
At 0343 Pt converted from afib to normal sinus rhythm. Amiodarone drip titrated to 0.5 /hr as ordered by Dr. Mansfield once converted.
[2020-03-20 03:51] LABS: Basophils % 0.3 %; Eosinophils # 0.1 10^3/uL (0.0-0.8); Hematocrit 31.2 % (42.0-52.0); Hemoglobin 10.2 g/dL (11.7-16.6); Lymphocytes # 2.5 10^3/uL (0.8-4.8); Lymphocytes % 21.3 %; Mean Corpuscular HGB Conc 32.7 g/dL (30.0-36.0); Mean Corpuscular Hemoglobin 31.7 pg (28.0-34.0); Mean Corpuscular Volume 96.9 fL (80-94); Mean Platelet Volume 11.3 fL (7.4-10.4); Monocytes # 1.3 10^3/uL (0.2-0.9); Neutrophils # 7.52 10^3/uL (1.8-7.7); Neutrophils % 64.8 %; Nucleated Red Blood Cells % 0 %; Platelet Count 91 10^3/cmm (130-400); Red Blood Count 3.22 10^6/uL (4.1-5.3); Red Cell Distribution Width 15.5 % (12.1-15.1); White Blood Count 11.6 10^3/uL (4.0-10.0)
[2020-03-20 04:26] LABS: Anion Gap 14.1 (5-19); Blood Urea Nitrogen 15 mg/dL (8-23); Calcium 8.5 mg/dL (8.5-10.5); Carbon Dioxide 22 mmol/L (22-29); Chloride 103 mmol/L (98-107); Glucose 235 mg/dL (65-115); Osmolality Calculated 284 mOsm/kg (285-295); Potassium 4.1 mmol/L (3.5-5.1); Sodium 135 mmol/L (136-145)
--- NOTE | 2020-03-20 06:00 | XRR_ITS ---
PROCEDURE INFORMATION: Exam: XR Chest, 1 View Exam date and time: 03/20/2020 5:36 AM Age: 69 years old Clinical indication: Condition or disease; Other: S/P cabg; Diuresing; Additional info: Pod #3 status post cabg: Diuresing TECHNIQUE: Imaging protocol: XR of the chest Views: 1 view. COMPARISON: CR XR chest 1V portable [id number] 03/19/2020 6:17 AM FINDINGS: Tubes, catheters and devices: Central venous catheter via the right jugular approach with the tip projecting over the superior vena cava. Thoracotomy tube on the left directed to the apex. Lungs: Lungs are well aerated without a focal area of consolidation. Pleural space: Subpulmonic effusions bilaterally. Heart/Mediastinum: cardiac silhouette is enlarged. Prior sternotomy. Bones/joints: See Heart/Mediastinum finding. XR/XR chest 1V portable [id number] IMPRESSION: 1. Lungs are well aerated without a focal area of consolidation. 2. Subpulmonic effusions bilaterally.
[2020-03-20 07:11] LABS: Glucose Point of Care 269 mg/dL (70-110)
--- NOTE | 2020-03-20 07:13 | PC.NURSE ---
Vance cath removed per VO from Dr. Pagan, 10 ml aspirated from balloon, tip intact, pt tollerated well
--- NOTE | 2020-03-20 07:30 | PM.PN ---
Subjective Subjective: Interval history: Postop day #3 status post CABG. Atrial fibrillation last night initiated amiodarone and is now converted back to sinus rhythm. Up in chair on rounds. Looks quite good. Intake and output is negative about 1 L over the past 24 hours. Chest tube output just over 300 cc for the past 24 hours and is decreasing. Chest x-ray remains relatively clear with cardiomegaly. Support lines are in position. No wilber infiltrate or effusion. H&H is stable. Platelet count in the low 90,000 range but appears to be stabilizing. Vitals/I&O/Wt Last Vital Signs Temp 98.6 F 03/20/20 07:17 Pulse 71 03/20/20 07:17 Resp 20 H 03/20/20 07:17 BP 120/65 03/20/20 07:17 Pulse Ox 96 03/20/20 07:17 03/19/20 03/20/20 03/20/20 22:59 06:59 14:59 Intake Total 300 / 1329.9 Output Total 1094 / 1564 724 / 2288 175 / 175 Balance -794 / -234.1 -724 / -958.1 -175 / -175 Physical Exam Chest: COMMONS NORMALS: normal inspection of the chest (Wound VAC dressing in place. Chest wall is stable.) Resp: COMMON NORMALS: normal respiratory effort, No retractions, No use of accessory muscles and clear to auscultation bilaterally (Minimal crackles in the bases) AUSCULTATION: clear to auscultation bilaterally (Minimal crackles in the bases) Cardio: COMMON NORMALS: regular rate, regular rhythm, S1 normal heart sound present, No murmurs present (Cardio) and No rub (Cardio) RATE: regular rate RHYTHM: regular rhythm HEART SOUNDS: S1 normal heart sound present Extremity: GENERAL: Yes edema (Peripheral edema is improving.) Neuro: COMMON NORMALS: no focal motor deficits and no sensory deficits noted Urinary Catheter Management^: Vance: Cath Placed During This Visit: yes Reason for Continuing Indwelling Catheter: Accurate Measurement of Urinary Output in Critically Ill Patients Urinary Catheter Date of Insertion: 03/17/20 Urinary Catheter Time of Insertion: 08:23 Data : 03/20/20 03:00 03/20/20 03:00 A&P Assessment and plan (1) Status post aorto-coronary artery bypass graft: Postop day #3 status post CABG. He is progressing well. Postop A. fib now resolved. Remains on IV amiodarone, with oral dosing to be scheduled by Dr. Mansfield. Plan: We will discontinue the central line and Vance catheter. I will leave the chest tubes and for now as I continue to watch he decreased output. Greatly appreciate the oversight and recommendations of Dr. Mansfield Status: Acute Attestations Medical Necessity Statement*: Postop day #3 status post CABG Time Spent in Patient Care: 16 - 35 minutes Coding Level of Care Code Acute Faculty Research Assistant for Chg Fwd Diagnoses Status post aorto-coronary artery bypass graft Z95.1
[2020-03-20] MEDS: amiodarone 200 mg Tablet 400 MG PO ×2 (09:05→17:08)
[2020-03-20] MEDS: losartan 50 mg Tablet 100 MG PO (09:07)
[2020-03-20] MEDS: metoprolol tartrate 25 mg Tablet PO ×2 (09:08→17:08)
[2020-03-20] MEDS: pantoprazole 40 mg SDV IVP ×2 (09:08→20:16)
[2020-03-20 11:29] LABS: Glucose Point of Care 251 mg/dL (70-110)
[2020-03-20] MEDS: aspirin 325 mg Tablet PO (11:42)
[2020-03-20] MEDS: docusate sodium 100 mg Capsule PO (13:37)
--- NOTE | 2020-03-20 15:04 | PC.SOCIAL ---
IM follow up explained, intialed, dated and timed. Patient verbalized understanding. Copy provided
[2020-03-20 17:03] LABS: Glucose Point of Care 200 mg/dL (70-110)
--- NOTE | 2020-03-20 18:52 | P.PN_ITS ---
Subjective Subjective: Interval history: Had episode of A. fib with RVR last night he was given IV fluid and amiodarone was continued as he was appeared to be dehydrated converted in sinus rhythm Vitals/I&O/Wt Last Vital Signs Temp 98.6 F 03/20/20 18:00 Pulse 74 03/20/20 18:00 Resp 12 03/20/20 18:00 BP 121/60 03/20/20 18:00 Pulse Ox 97 03/20/20 18:00 03/20/20 03/20/20 03/20/20 06:59 14:59 22:59 Intake Total 200 / 200 325 / 525 Output Total 724 / 2288 450 / 450 525 / 975 Balance -724 / -958.1 -250 / -250 -200 / -450 Physical Exam Narrative: EXAM NARRATIVE: GENERAL: Patient is alert, awake and oriented x3. Sternotomy wound vacuum in NECK: No jugular vein distension. HEENT: No cyanosis. No icterus. No pallor. HEART: Regular S1 and S2. No murmur, rub or gallop. LUNGS: mild bibasilar crackles. ABDOMEN: Soft, nontender and nondistended. Positive bowel sounds. No guarding, rebound or tenderness. CENTRAL NERVOUS SYSTEM: Grossly nonfocal. EXTREMITIES: Lower extremities 1+ Urinary Catheter Management^: Vance: Cath Placed During This Visit: yes, but has since been removed by the nurse Reason for Continuing Indwelling Catheter: Decision to DC Catheter Urinary Catheter Date of Insertion: 03/17/20 Urinary Catheter Time of Insertion: 08:23 Date Urinary Catheter Removed: 03/20/20 Time Urinary Catheter Discontinued: 08:00 Data : 03/20/20 03:00 03/20/20 03:00 A&P Assessment and plan (1) Essential hypertension: Well-controlled continue medicine Status: Acute (2) CAD (coronary artery disease): From coronary disease perspective status post CABG day 3, chest tube in place. Metoprolol will be optimized to 25 mg p.o. twice daily continue ARB Status: Acute Qualifiers: Coronary Disease-Associated Artery/Lesion type: [place] artery [place] vs. transplanted heart: [place] heart Associated angina: with unstable angina Qualified Code(s): I25.110 - Atherosclerotic heart disease of [place] coronary artery with unstable angina pectoris (3) Atrial fibrillation: Switch to oral atrial fibrillation 400 mg twice a day. Since patient has short-lived postop A. fib we will hold for anticoagulation for now. Continue aspirin Status: Acute Qualifiers: Atrial fibrillation type: paroxysmal Qualified Code(s): I48.0 - Paroxysmal atrial fibrillation Attestations Medical Necessity Statement*: Patient require continuation hospitalization for above defined care Coding Level of Care Code Established Pt Acute Health Information Administrator for g Fwd Patient Type Established History Expanded Problem Focused Exam Expanded Problem Focused Medical Decision Making Moderate Complexity Diagnoses Essential hypertension I10 CAD (coronary artery disease) I25.110 Coronary Disease-Associated Artery/Lesion type: [place] artery [place] vs. transplanted heart: [place] heart Associated angina: with unstable angina Atrial fibrillation I48.0 Atrial fibrillation type: paroxysmal
[2020-03-20] MEDS: atorvastatin 40 mg Tablet 20 MG PO (20:13)
[2020-03-20] MEDS: chlorhexidine gluconate 0.12% Btl 473 mL 15 ML MUCOUS MEM (20:14)
[2020-03-20 20:17] LABS: Glucose Point of Care 224 mg/dL (70-110)
[2020-03-21] VITALS (33 sets, daily range): BP systolic 101–167; BP diastolic 55–89; PULSE 67–146; RESP 0–29; TEMP 36.5–37.2; O2SAT 90–99; BMI 31.2
[2020-03-21] MEDS: oxyCODONE-APAP 5-325 mg Tablet PO ×3 (01:46→20:37)
--- NOTE | 2020-03-21 01:51 | PC.NURSE ---
patient complained of back pain and unable to get comfortable. tried repositioning and it still was rated 6/10. patientrequested pain med for the first time all shift. patient has not had any rest this evening, has been awake most of the night. tele wnl lungs are decreased bilateral chest tubes have minimal sero-sanguineous drainage. wound vac intact and donor leg incision dry and intact, slight redness noted on right thigh. iv saline locked patient is voiding and drinking adequately
[2020-03-21] MEDS: aspirin 325 mg Tablet PO (08:01)
[2020-03-21] MEDS: amiodarone 200 mg Tablet 400 MG PO (08:01)
[2020-03-21] MEDS: metoprolol tartrate 25 mg Tablet PO ×2 (08:02→17:53)
[2020-03-21] MEDS: chlorhexidine gluconate 0.12% Btl 473 mL 15 ML MUCOUS MEM ×2 (08:02→20:36)
[2020-03-21] MEDS: docusate sodium 100 mg Capsule PO (08:02)
[2020-03-21] MEDS: losartan 50 mg Tablet 100 MG PO (08:02)
--- NOTE | 2020-03-21 08:02 | PM.PN ---
Subjective Subjective: Interval history: Postop day #4 status post CABG. Has remained in A. fib the past 24 hours. Having breakfast this morning. Looks very good. Chest tube output is now become serous. Lab is stable except I noticed his sodium is drifting down. Chest tube output 240 cc past 24 hours. There was no chest x-ray obtained this morning. Peripheral edema improved Vitals/I&O/Wt Last Vital Signs Temp 98.5 F 03/21/20 05:32 Pulse 77 03/21/20 07:00 Resp 20 H 03/21/20 07:00 BP 132/73 03/21/20 07:00 Pulse Ox 96 03/21/20 07:00 03/20/20 03/21/20 03/21/20 22:59 06:59 14:59 Intake Total 3485 / 3685 240 / 3925 Output Total 1085 / 1535 960 / 2495 Balance 2400 / 2150 -720 / 1430 Weight last 48 hrs Weight 250 lb Physical Exam Chest: COMMONS NORMALS: normal inspection of the chest (Wound VAC and chest tubes discontinued. Incision clean and dry. Sternum stable.) Resp: COMMON NORMALS: normal respiratory effort (Good use of incentive spirometry.), No retractions, No use of accessory muscles and clear to auscultation bilaterally AUSCULTATION: clear to auscultation bilaterally Extremity: NARRATIVE EXTREMITY EXAM: Decreased peripheral edema Urinary Catheter Management^: Vance: Cath Placed During This Visit: yes, but has since been removed by the nurse Reason for Continuing Indwelling Catheter: Decision to DC Catheter Urinary Catheter Date of Insertion: 03/17/20 Urinary Catheter Time of Insertion: 08:23 Date Urinary Catheter Removed: 03/20/20 Time Urinary Catheter Discontinued: 08:00 Data : 03/20/20 03:00 03/20/20 03:00 A&P Assessment and plan (1) Status post aorto-coronary artery bypass graft: Postop day #4 status post CABG x4. Postop intermittent A. fib, currently resolved Plan: Discontinue wound VAC and drains. Transfer to ron, intermediate care. CBC, BMP, chest x-ray in a.m. Lasix 20 mg p.o. now. Discharge planning Status: Acute Attestations Medical Necessity Statement*: Postop day #4 status post CABG. Transfer to ron Time Spent in Patient Care: Greater than 35 minutes Coding Level of Care Code Acute Machinist Helper Marine for Chg Fwd Diagnoses Status post aorto-coronary artery bypass graft Z95.1
--- NOTE | 2020-03-21 09:12 | PM.PN ---
Subjective Subjective: Interval history: Charbel is 4 days post coronary bypass surgery. He has had a fairly uncomplicated course. He was in atrial fibrillation and previously was on IV amiodarone. Slightly more than 24 hours ago he converted to sinus rhythm and was changed over to amiodarone by mouth. This morning, Dr. Solomon removed the pacemaker wires and tubes. Just prior to my arrival he went back into atrial fibrillation and his heart rate is now around 150. Hemodynamically he is stable. He is essentially asymptomatic. Vitals/I&O/Wt Last Vital Signs Temp 98.5 F 03/21/20 05:32 Pulse 85 03/21/20 08:04 Resp 18 03/21/20 08:01 BP 132/73 03/21/20 07:00 Pulse Ox 96 03/21/20 08:01 03/20/20 03/21/20 03/21/20 22:59 06:59 14:59 Intake Total 3485 / 3685 240 / 3925 Output Total 1085 / 1535 960 / 2495 Balance 2400 / 2150 -720 / 1430 Weight last 48 hrs Weight 250 lb Physical Exam Narrative: EXAM NARRATIVE: GENERAL: In general he looks and feels well sitting up in a chair HEENT: Exam within normal limits. NECK: Supple without jugular vein distention. The carotid upstroke is normal without bruits. BACK: Exam normal. LUNGS: Clear. HEART: Irregularly irregular with tachycardia ABDOMEN: Benign without organomegaly or tenderness. EXTREMITIES: No edema. NEUROLOGIC: Exam normal. SKIN: Unremarkable. Urinary Catheter Management^: Vance: Cath Placed During This Visit: yes, but has since been removed by the nurse Reason for Continuing Indwelling Catheter: Decision to DC Catheter Urinary Catheter Date of Insertion: 03/17/20 Urinary Catheter Time of Insertion: 08:23 Date Urinary Catheter Removed: 03/20/20 Time Urinary Catheter Discontinued: 08:00 Data : 03/20/20 03:00 03/20/20 03:00 A&P Assessment and plan (1) Atrial fibrillation: Status: Acute Qualifiers: Atrial fibrillation type: paroxysmal Qualified Code(s): I48.0 - Paroxysmal atrial fibrillation (2) Status post aorto-coronary artery bypass graft: Status: Acute (3) Essential hypertension: Status: Acute (4) Shortness of breath: Status: Acute (5) CAD (coronary artery disease): Status: Acute Qualifiers: Coronary Disease-Associated Artery/Lesion type: [place] artery [place] vs. transplanted heart: [place] heart Associated angina: with unstable angina Qualified Code(s): I25.110 - Atherosclerotic heart disease of [place] coronary artery with unstable angina pectoris Additional A&P Information We will put him back on intravenous amiodarone and hold the p.o. amiodarone. Continue the beta-ana. Reassess. 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 transplanted heart: [place] heart Associated angina: with unstable angina
[2020-03-21] MEDS: FUROsemide 20 mg Tablet PO (09:32)
[2020-03-21 17:24] LABS: Glucose Point of Care 311 mg/dL (70-110)
[2020-03-21 17:24] LABS: Glucose Point of Care 243 mg/dL (70-110)
[2020-03-21 17:24] LABS: Glucose Point of Care 245 mg/dL (70-110)
[2020-03-21] MEDS: pantoprazole DR 40 mg Tablet PO (20:36)
[2020-03-21] MEDS: atorvastatin 40 mg Tablet 20 MG PO (20:36)
--- NOTE | 2020-03-21 20:59 | PC.NURSE ---
patient currently up in chair, tried to have bowel movement but could not go. still on amiodarone drip at 16.7 mls hr. hr is sinus rhythm, lungs are decreased bilaterl abdomen soft bs x 4 quads. chest incision dry and intact as well as bilateral donor sites in legs. pat did request to go back to bed due to pain in his back. medicated and patient is now back in bed resting.
[2020-03-21 23:29] LABS: Glucose Point of Care 261 mg/dL (70-110)
[2020-03-22] VITALS (33 sets, daily range): BP systolic 95–155; BP diastolic 61–96; PULSE 64–141; RESP 0–26; TEMP 36.8–37.1; O2SAT 94–98; BMI 31.2
--- NOTE | 2020-03-22 03:18 | PC.NURSE ---
patient up to bedside commode, still no bowel movement, voided clr dk ben urine. v/s wnl
[2020-03-22] MEDS: oxyCODONE-APAP 5-325 mg Tablet PO ×2 (04:18→20:42)
[2020-03-22 04:30] LABS: Basophils # 0.1 10^3/uL (0.0-0.1); Basophils % 0.7 %; Eosinophils # 0.4 10^3/uL (0.0-0.8); Eosinophils % 3.8 %; Hematocrit 33.5 % (42.0-52.0); Hemoglobin 10.7 g/dL (11.7-16.6); Lymphocytes # 2.1 10^3/uL (0.8-4.8); Lymphocytes % 21.3 %; Mean Corpuscular HGB Conc 31.9 g/dL (30.0-36.0); Mean Corpuscular Hemoglobin 30.2 pg (28.0-34.0); Mean Corpuscular Volume 94.6 fL (80-94); Monocytes # 1.3 10^3/uL (0.2-0.9); Monocytes % 12.9 %; Neutrophils # 5.45 10^3/uL (1.8-7.7); Neutrophils % 56.5 %; Nucleated Red Blood Cells % 0 %; Platelet Count 134 10^3/cmm (130-400); Red Blood Count 3.54 10^6/uL (4.1-5.3); Red Cell Distribution Width 14.4 % (12.1-15.1); White Blood Count 9.7 10^3/uL (4.0-10.0)
[2020-03-22 04:39] LABS: Anion Gap 13.3 (5-19); Blood Urea Nitrogen 14 mg/dL (8-23); Calcium 8.8 mg/dL (8.5-10.5); Carbon Dioxide 25 mmol/L (22-29); Chloride 103 mmol/L (98-107); Glucose 123 mg/dL (65-115); Osmolality Calculated 284 mOsm/kg (285-295); Potassium 3.3 mmol/L (3.5-5.1); Sodium 138 mmol/L (136-145)
--- NOTE | 2020-03-22 06:00 | XRR_ITS ---
PROCEDURE INFORMATION: Exam: XR Chest, 1 View Exam date and time: 03/22/2020 5:49 AM Age: 69 years old Clinical indication: Chest pain; Type not specified; Prior surgery; Surgery date: 3-7 days post-operative; Surgery type: Cabg; Additional info: Postop day #5 status post cabg TECHNIQUE: Imaging protocol: XR of the chest Views: 1 view. COMPARISON: CR XR chest 1V portable [id number] 03/20/2020 5:22 AM FINDINGS: Lungs: See Heart/Mediastinum finding. Pleural space: Unremarkable. No pleural effusion. No pneumothorax. Heart/Mediastinum: There is mild prominence of the cardiac silhouette. Some patchy opacities are seen in the retrocardiac region likely representing atelectasis. Bones/joints: Status post median sternotomy. XR/XR chest 1V portable [id number] IMPRESSION: 1. Mildly prominent cardiac silhouette without evidence of acute cardiac decompensation. 2. [place]andy opacities present in the retrocardiac region most probably represents atelectasis. A left basilar infiltrate cannot be entirely excluded.
--- NOTE | 2020-03-22 07:38 | PM.PN ---
Subjective Subjective: Interval history: Yesterday morning I put the patient back on IV amiodarone because he went back into atrial fibrillation. Not long thereafter he converted to sinus rhythm. I decreased the dose to 0.5 mg/min. This morning when the amiodarone ran out the nurse did not restart it. Very shortly thereafter he went back into atrial fibrillation where he is now. Otherwise, he feels fine. Medications: Reviewed: Yes Vitals/I&O/Wt Last Vital Signs Temp 98.8 F 03/22/20 05:55 Pulse 68 03/22/20 07:00 Resp 18 03/22/20 07:00 BP 149/76 03/22/20 07:00 Pulse Ox 98 03/22/20 05:55 03/21/20 03/22/20 03/22/20 22:59 06:59 14:59 Intake Total 780 / 1260 540 / 1800 Output Total 1250 / 2100 1080 / 3180 Balance -470 / -840 -540 / -1380 Weight last 48 hrs Weight 250 lb Weight 250 lb Physical Exam Narrative: EXAM NARRATIVE: GENERAL: In general he looks and feels well HEENT: Exam within normal limits. NECK: Supple without jugular vein distention. The carotid upstroke is normal without bruits. BACK: Exam normal. LUNGS: Clear. HEART: Irregularly irregular tachycardic ABDOMEN: Benign without organomegaly or tenderness. EXTREMITIES: No edema. NEUROLOGIC: Exam normal. SKIN: Unremarkable. Urinary Catheter Management^: Vance: Cath Placed During This Visit: yes, but has since been removed by the nurse Reason for Continuing Indwelling Catheter: Decision to DC Catheter Urinary Catheter Date of Insertion: 03/17/20 Urinary Catheter Time of Insertion: 08:23 Date Urinary Catheter Removed: 03/20/20 Time Urinary Catheter Discontinued: 08:00 Data : 03/22/20 04:05 03/22/20 04:05 A&P Assessment and plan (1) Atrial fibrillation: Status: Acute Qualifiers: Atrial fibrillation type: paroxysmal Qualified Code(s): I48.0 - Paroxysmal atrial fibrillation (2) Status post aorto-coronary artery bypass graft: Status: Acute (3) Essential hypertension: Status: Acute (4) CAD (coronary artery disease): Status: Acute Qualifiers: Coronary Disease-Associated Artery/Lesion type: [place] artery [place] vs. transplanted heart: [place] heart Associated angina: with unstable angina Qualified Code(s): I25.110 - Atherosclerotic heart disease of [place] coronary artery with unstable angina pectoris (5) Angina of effort: Status: Acute Additional A&P Information I will restart the IV amiodarone. 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 transplanted heart: [place] heart Associated angina: with unstable angina Angina of effort I20.8
[2020-03-22 08:15] LABS: Glucose Point of Care 152 mg/dL (70-110)
--- NOTE | 2020-03-22 08:28 | PC.NURSE ---
Pt high Underwood's in bed upon entry. Temp 98.2 F oral. Accucheck 152. Urine output 200 mL, pale yellow, clear of sediment. 6 units insulin given LUQ abd. Pt states no needs, wants, concerns at this time. KATY AlexN
[2020-03-22] MEDS: metoprolol tartrate 25 mg Tablet PO ×2 (09:03→17:13)
[2020-03-22] MEDS: losartan 50 mg Tablet 100 MG PO (09:04)
[2020-03-22] MEDS: aspirin 325 mg Tablet PO (09:04)
[2020-03-22] MEDS: chlorhexidine gluconate 0.12% Btl 473 mL 15 ML MUCOUS MEM ×2 (09:04→17:19)
[2020-03-22] MEDS: pantoprazole DR 40 mg Tablet PO (09:04)
--- NOTE | 2020-03-22 09:10 | PM.PN ---
Subjective Subjective: Interval history: Postop day #5 status post CABG x4. Having breakfast this morning without complaint. Unfortunately, he converted back to A. fib when the IV amiodarone inadvertently ran out prior to resuming oral amiodarone. Dr. Gudino is recommended reinitiating IV amiodarone. No other complaints. Lab looks good though his potassium is a bit low. Platelet count is now coming back up. White count below 10,000. Chest x-ray looks quite good. Chest wall stable. Incision clean and dry. Vitals/I&O/Wt Last Vital Signs Temp 98.2 F 03/22/20 08:34 Pulse 140 H 03/22/20 08:34 Resp 20 H 03/22/20 08:34 BP 146/96 03/22/20 08:34 Pulse Ox 94 03/22/20 07:58 03/21/20 03/22/20 03/22/20 22:59 06:59 14:59 Intake Total 780 / 1260 1058 / 2318 Output Total 1250 / 2100 1080 / 3180 700 / 700 Balance -470 / -840 -22 / -862 -700 / -700 Weight last 48 hrs Weight 250 lb Weight 250 lb Physical Exam Chest: COMMONS NORMALS: normal inspection of the chest and normal palpation of entire chest wall (Chest wall stable.) Resp: EFFORT & INSPECTION: Yes able to speak in complete sentences Extremity: OTHER: Peripheral edema has mostly resolved. Urinary Catheter Management^: Vance: Cath Placed During This Visit: yes, but has since been removed by the nurse Reason for Continuing Indwelling Catheter: Decision to DC Catheter Urinary Catheter Date of Insertion: 03/17/20 Urinary Catheter Time of Insertion: 08:23 Date Urinary Catheter Removed: 03/20/20 Time Urinary Catheter Discontinued: 08:00 Data : 03/22/20 04:05 03/22/20 04:05 A&P Assessment and plan (1) Status post aorto-coronary artery bypass graft: Postop day #5 status post CABG x4. Intermittent episodes of A. fib. Now back on IV amiodarone. Plan: Atrial fib management per recommendation of Dr. Gudino and cardiology colleagues. Daily wound care and dressing changes. Ambulate PRN. He should be ready for discharge once we have his rhythm under consistent control. Greatly appreciate the expertise of our cardiology colleagues. Status: Acute Attestations Medical Necessity Statement*: Status post CABG x4. Postop A. fib Time Spent in Patient Care: 16 - 35 minutes Coding Level of Care Code Acute Architectural Associate for Kirby Rahman Diagnoses Status post aorto-coronary artery bypass graft Z95.1
--- NOTE | 2020-03-22 10:00 | PC.OT ---
OT tx attempted. Nurse requests tx to be held until later today as pt did not rest last night and is now sleeping.Therapist to return later today if possible.
[2020-03-22] MEDS: potassium chloride premix 40 MEQ/100 ML PREMIX 25 MEQ IV (10:45)
[2020-03-22] MEDS: lidocaine 1% INJ 20 mL 5 ML IV (10:46)
[2020-03-22] MEDS: enoxaparin 40 mg/0.4 mL Syringe SUBCUT (10:46)
[2020-03-22 11:00] LABS: Glucose Point of Care 242 mg/dL (70-110)
--- NOTE | 2020-03-22 13:12 | PC.NURSE ---
had converted to afib proir while ammiodarone on hold for new gtt and has converted back to sr after 0900 meds . ammiodarone gtt decreased .5
--- NOTE | 2020-03-22 15:11 | PC.NURSE ---
family in for visit at this time per doctor order
[2020-03-22 16:45] LABS: Glucose Point of Care 312 mg/dL (70-110)
--- NOTE | 2020-03-22 19:07 | PC.NURSE ---
patient resting comfortably watching tv v/s stable heart rate sr no ectopy. lungs cta chest incision dry intact and no redness or drainage noted. voiding per urinal abdomen soft bs 4 quads. bilateral leg donor site dry intact. upper area slightly red. no drainage. denies anypain or shortness of breath.
[2020-03-22] MEDS: docusate sodium 100 mg Capsule PO (20:42)
[2020-03-22] MEDS: atorvastatin 40 mg Tablet 20 MG PO (20:42)
[2020-03-22] MEDS: diphenhydrAMINE 25 mg Capsule PO (20:42)
[2020-03-23] VITALS (21 sets, daily range): BP systolic 106–163; BP diastolic 60–80; PULSE 74–103; RESP 0–28; TEMP 36.6–37; O2SAT 16–97
--- NOTE | 2020-03-23 06:33 | PM.PN ---
Subjective Subjective: Interval history: Postop day #6 that is post CABG. Has remained in sinus rhythm, though still on IV amiodarone drip. Oral amiodarone has not been initiated. Vitals/I&O/Wt Last Vital Signs Temp 98.1 F 03/23/20 05:50 Pulse 88 03/23/20 05:50 Resp 3 L 03/23/20 05:50 BP 130/70 03/23/20 05:50 Pulse Ox 94 03/23/20 05:50 03/22/20 03/22/20 03/23/20 14:59 22:59 06:59 Intake Total 1320 / 1320 120 / 1440 Output Total 1225 / 1225 1405 / 2630 775 / 3405 Balance -1225 / -1225 -85 / -1310 -655 / -1965 Weight last 48 hrs Weight 250 lb Weight 250 lb Physical Exam Neck/C-Spine: COMMON NORMALS: no JVD Chest: COMMONS NORMALS: normal inspection of the chest and normal palpation of entire chest wall Resp: COMMON NORMALS: normal respiratory effort, No retractions and clear to auscultation bilaterally EFFORT & INSPECTION: Yes able to speak in complete sentences AUSCULTATION: clear to auscultation bilaterally Cardio: COMMON NORMALS: no JVD, regular rate, regular rhythm, S1 normal heart sound present, S2 normal heart sound present, No murmurs present (Cardio) and No rub (Cardio) RATE: regular rate RHYTHM: regular rhythm HEART SOUNDS: S1 normal heart sound present and S2 normal heart sound present Extremity: OTHER: Peripheral edema continues to improve. Urinary Catheter Management^: Vance: Cath Placed During This Visit: yes, but has since been removed by the nurse Reason for Continuing Indwelling Catheter: Decision to DC Catheter Urinary Catheter Date of Insertion: 03/17/20 Urinary Catheter Time of Insertion: 08:23 Date Urinary Catheter Removed: 03/20/20 Time Urinary Catheter Discontinued: 08:00 Data : 03/22/20 04:05 03/22/20 04:05 A&P Assessment and plan (1) Status post aorto-coronary artery bypass graft: Postop day #6 that is post CABG with postop A. fib, now resolved on IV amiodarone Plan: Begin chlorhexidine showers today. Transfer to ron when okay with cardiology. Hopefully, discharge home soon with home health services Status: Acute Attestations Medical Necessity Statement*: Status post CABG x4 with postop A. fib, now resolved Time Spent in Patient Care: less than 15 minutes Coding Level of Care Code Acute Patient Care Assistant for Chg Fwd Diagnoses Status post aorto-coronary artery bypass graft Z95.1
[2020-03-23 07:34] LABS: Glucose Point of Care 275 mg/dL (70-110)
[2020-03-23 07:34] LABS: Glucose Point of Care 210 mg/dL (70-110)
[2020-03-23] MEDS: losartan 50 mg Tablet 100 MG PO (08:39)
[2020-03-23] MEDS: pantoprazole DR 40 mg Tablet PO (08:39)
[2020-03-23] MEDS: enoxaparin 40 mg/0.4 mL Syringe SUBCUT (08:40)
[2020-03-23] MEDS: metoprolol tartrate 25 mg Tablet PO ×2 (08:40→17:26)
[2020-03-23] MEDS: aspirin 325 mg Tablet PO (08:41)
[2020-03-23] MEDS: amiodarone 200 mg Tablet 400 MG PO ×2 (08:45→17:26)
[2020-03-23] MEDS: lactulose oral liq 20 gm/30 mL UDC PO (08:52)
[2020-03-23] MEDS: chlorhexidine gluconate 4% Btl 118 mL 1 APPLIC TOPICAL (08:52)
[2020-03-23 11:25] LABS: Glucose Point of Care 267 mg/dL (70-110)
[2020-03-23] MEDS: oxyCODONE-APAP 5-325 mg Tablet PO ×2 (14:53→21:04)
--- NOTE | 2020-03-23 15:11 | PC.NURSE ---
patient asked if his and daughter were able to come and visit him, Dr. Solomon told this nurse it was okay for them to visit once a day.
[2020-03-23 17:24] LABS: Glucose Point of Care 270 mg/dL (70-110)
[2020-03-23] MEDS: chlorhexidine gluconate 0.12% Btl 473 mL 15 ML MUCOUS MEM (17:27)
--- NOTE | 2020-03-23 18:24 | PC.NURSE ---
SHIFT SUMMARY Patient was transferred today from ICU. He has showered with betasept with the help of OT. Dressings were changed to medial chest after shower, incisions well approximated, no drainage noted. site cleansed with betadine and [place] dressings applied per order. When pt was walking with PT his heart rate went up to as high as 165, he was taken to his room to sit down, heart rate went back down to 95 within a few minutes. He had his evening dose of amiodorone and metoprolol,h eart rate is 74 at this time. Pt has complained about pain in his L posterior shoulder today, just states it is sore PRN dose of oxycodone given per order. Pt resting in bed at this time, no complaints at this time.
--- NOTE | 2020-03-23 19:39 | P.PN_ITS ---
Subjective Subjective: Interval history: Patient is in sinus rhythm. Somehow amiodarone was not started by mouth over the weekend he went back into A. fib. Today we will switch him to 400 mg p.o. amiodarone and will turn off the IV Medications: Reviewed: Yes Vitals/I&O/Wt Last Vital Signs Temp 98.6 F 03/23/20 19:34 Pulse 75 03/23/20 19:34 Resp 19 H 03/23/20 19:34 BP 132/76 03/23/20 19:34 Pulse Ox 95 03/23/20 19:34 03/23/20 03/23/20 03/23/20 06:59 14:59 22:59 Intake Total 120 / 1440 1340 / 1340 240 / 1580 Output Total 775 / 3405 1025 / 1025 275 / 1300 Balance -655 / -1965 315 / 315 -35 / 280 Weight last 48 hrs Weight 250 lb Weight 250 lb Physical Exam Narrative: EXAM NARRATIVE: GENERAL: Patient is alert, awake and oriented x3. Sternotomy wound vacuum in NECK: No jugular vein distension. HEENT: No cyanosis. No icterus. No pallor. HEART: Regular S1 and S2. No murmur, rub or gallop. LUNGS: mild bibasilar crackles. ABDOMEN: Soft, nontender and nondistended. Positive bowel sounds. No guarding, rebound or tenderness. CENTRAL NERVOUS SYSTEM: Grossly nonfocal. EXTREMITIES: Lower extremities 1+ Urinary Catheter Management^: Vance: Cath Placed During This Visit: yes, but has since been removed by the nurse Reason for Continuing Indwelling Catheter: Decision to DC Catheter Urinary Catheter Date of Insertion: 03/17/20 Urinary Catheter Time of Insertion: 08:23 Date Urinary Catheter Removed: 03/20/20 Time Urinary Catheter Discontinued: 08:00 Data : 03/22/20 04:05 03/22/20 04:05 A&P Assessment and plan (1) Status post aorto-coronary artery bypass graft: Cardiovascular ott patient appears to be stable. He is postop day 6. Chest tubes are out. He will be transferred to the second floor for rehab Status: Acute (2) Atrial fibrillation: Postop atrial fibrillation we will switch him to p.o. 40 mg of amiodarone twice a day. Optimize rest of the medicine including metoprolol. Since patient has been in and out of atrial fibrillation for the past few days I will switch him to oral anticoagulants. Status: Acute Qualifiers: Atrial fibrillation type: paroxysmal Qualified Code(s): I48.0 - [place] roxysmal atrial fibrillation Additional A&P Information I will restart the IV amiodarone. Attestations Medical Necessity Statement*: Require continuation hospitalization for above defined care. 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
[2020-03-23 20:25] LABS: Glucose Point of Care 273 mg/dL (70-110)
[2020-03-23] MEDS: atorvastatin 40 mg Tablet 20 MG PO (21:03)
[2020-03-24] VITALS (9 sets, daily range): BP systolic 114–141; BP diastolic 69–77; PULSE 63–94; RESP 18–20; TEMP 36.6–36.9; O2SAT 92–98
--- NOTE | 2020-03-24 00:18 | PC.NURSE ---
Left Upper Arm: Patient L Upper arm has a large firm area that is red and hot. Patient complains the area is tender, and the pain radiates up into his shoulder. Jose G WAYNE
[2020-03-24] MEDS: amiodarone 200 mg Tablet 400 MG PO ×3 (01:46→17:05)
--- NOTE | 2020-03-24 06:25 | P.PN_ITS ---
Subjective Subjective: Interval history: Postop day #7 status post CABG x4. Another episode of atrial fibrillation last night. We gave extra dose of metoprolol and amiodarone. He is now in sinus rhythm this morning. No complaints. 2 bowel movements yesterday. Shower yesterday. Dr. Mansfield has started Eliquis secondary to his recurrent A. fib episodes. Medications: Reviewed: Yes Vitals/I&O/Wt Last Vital Signs Temp 98.0 F 03/24/20 04:00 Pulse 82 03/24/20 04:00 Resp 19 H 03/24/20 04:00 BP 135/77 03/24/20 04:00 Pulse Ox 92 03/24/20 04:00 03/23/20 03/23/20 03/24/20 14:59 22:59 06:59 Intake Total 1340 / 1340 240 / 1580 100 / 1680 Output Total 1025 / 1025 275 / 1300 1270 / 2570 Balance 315 / 315 -35 / 280 -1170 / -890 Weight last 48 hrs Weight 252 lb 3 oz Weight 250 lb Physical Exam Chest: COMMONS NORMALS: normal inspection of the chest and normal palpation of entire chest wall Resp: COMMON NORMALS: normal respiratory effort, No use of accessory muscles and clear to auscultation bilaterally AUSCULTATION: clear to auscultation bilaterally Cardio: COMMON NORMALS: regular rate, regular rhythm, No murmurs present (Car merari) and No rub (Cardio) RATE: regular rate RHYTHM: regular rhythm Extremity: GENERAL: No edema Urinary Catheter Management^: Vance: Cath Placed During This Visit: yes, but has since been removed by the nurse Reason for Continuing Indwelling Catheter: Decision to DC Catheter Urinary Catheter Date of Insertion: 03/17/20 Urinary Catheter Time of Insertion: 08:23 Date Urinary Catheter Removed: 03/20/20 Time Urinary Catheter Discontinued: 08:00 Data : 03/22/20 04:05 03/22/20 04:05 A&P Assessment and plan (1) Status post aorto-coronary artery bypass graft: Postop day #7 status post CABG x4. Recurrent A. fib, currently in sinus rhythm Shower again today. Increase activity. Discharge planning for probable discharge in the morning if cleared with Dr. Mansfield. Status: Acute Attestations Medical Necessity Statement*: 1 week status post CABG with recurrent intermittent A. fib, currently in sinus rhythm Time Spent in Patient Care: 16 - 35 minutes Coding Level of Care Code Acute Pressure Steamer Tender for Gregoriog Fwally Diagnoses Status post aorto-coronary artery bypass graft Z95.1
[2020-03-24 06:32] LABS: Glucose Point of Care 185 mg/dL (70-110)
--- NOTE | 2020-03-24 07:10 | USCV_ITS ---
Charbel Glass Age: 69 Gender: M : 1950 Exam Date: 03/24/2020 11:40 Ordering Phys: Denny Solomon MD (Andy) ([email or web address]) Technologist: Caprice Pappas Exam Location: [facility] [place] Indication: swelling, recent IV, cellulitis HISTORY: LUE swelliing, post IV, Cellulitis PROCEDURES: The following venous structures were evaluated: internal jugular vein, subclavian vein, axillary vein, and brachial veins. In addition, the basilic vein, cephalic vein, radial vein, and ulnar vein. FINDINGS: Left Jugular, subclavian, axillary, basilic, radial and ulnar veins all compress normally. The cephalic vein does not compress and no color flow is seen. Thrombus is noted in cephalic vein in area of cellulitis. CONCLUSIONS Thrombus with thrombophlebitis cephalic vein. Remaining vessels are patent Duane Woodward MD (Electronically Signed) Final Date: 25 March 2020 11:10 S
--- NOTE | 2020-03-24 07:12 | P.PN_ITS ---
Subjective Subjective: Interval history: Noted on rounds this morning, but not documented in previous progress note is erythema and swelling of the left upper extremity from the elbow toward the shoulder. Still maintains good range of motion. Noted to have 2 previous IVs. Vitals/I&O/Wt Last Vital Signs Temp 98.5 F 03/24/20 07:11 Pulse 82 03/24/20 07:11 Resp 18 03/24/20 07:11 BP 120/70 03/24/20 07:11 Pulse Ox 93 03/24/20 07:11 03/23/20 03/24/20 03/24/20 22:59 06:59 14:59 Intake Total 240 / 1580 1200 / 2780 Output Total 275 / 1300 1270 / 2570 Balance -35 / 280 -70 / 210 Weight last 48 hrs Weight 252 lb 3 oz Weight 250 lb Physical Exam Extremity: OTHER: Left upper extremity swelling from the elbow toward the shoulder with redness and history of 2 previous IVs during this admission Urinary Catheter Management^: Vance: Cath Placed During This Visit: yes, but has since been removed by the nurse Reason for Continuing Indwelling Catheter: Decision to DC Catheter Urinary Catheter Date of Insertion: 03/17/20 Urinary Catheter Time of Insertion: 08:23 Date Urinary Catheter Removed: 03/20/20 Time Urinary Catheter Discontinued: 08:00 Data : 03/22/20 04:05 03/22/20 04:05 A&P Assessment and plan (1) Status post aorto-coronary artery bypass graft: Swelling and erythema left upper extremity, possible upper extremity DVT plan: We will get an upper extremity venous duplex study this morning. Will initiate Rocephin and clindamycin. Status: Acute Attestations Medical Necessity Statement*: Postop CABG. Cellulitis left upper extremity Time Spent in Patient Care: 16 - 35 minutes Coding Level of Care Code Acute Exposure Machine Operator for Kirby Rahman Diagnoses Status post aorto-coronary artery bypass graft Z95.1
[2020-03-24] MEDS: clindamycin 150 mg Capsule 300 MG PO ×3 (07:46→19:42)
[2020-03-24] MEDS: cefTRIAXone 1,000 MG in sodium chloride 0.9% (plus) 50 ML 100 MG IV ×2 (07:47→19:41)
[2020-03-24] MEDS: aspirin 325 mg Tablet PO (08:23)
[2020-03-24] MEDS: losartan 50 mg Tablet 100 MG PO (08:23)
[2020-03-24] MEDS: pantoprazole DR 40 mg Tablet PO (08:23)
[2020-03-24] MEDS: metoprolol tartrate 25 mg Tablet PO ×2 (08:24→13:04)
[2020-03-24] MEDS: apixaban 5 mg Tablet PO ×2 (08:24→17:05)
[2020-03-24] MEDS: chlorhexidine gluconate 0.12% Btl 473 mL 15 ML MUCOUS MEM ×2 (08:25→18:03)
[2020-03-24] MEDS: chlorhexidine gluconate 4% Btl 118 mL 1 APPLIC TOPICAL (08:25)
--- NOTE | 2020-03-24 10:42 | PC.SOCIAL ---
IMM Update Pg 2 of IMM Updated. Initialed, dated, and timed, and placed in chart. Copy provided to patient.
[2020-03-24 11:03] LABS: Glucose Point of Care 256 mg/dL (70-110)
--- NOTE | 2020-03-24 11:47 | P.PN_ITS ---
Subjective Subjective: Interval history: Patient had episode of A. fib with RVR last night. He was given extra dose of amiodarone 400 mg by mouth after that he converted back to sinus rhythm. Medications: Reviewed: Yes Vitals/I&O/Wt Last Vital Signs Temp 98.1 F 03/24/20 11:43 Pulse 73 03/24/20 11:43 Resp 18 03/24/20 11:43 BP 114/70 03/24/20 11:43 Pulse Ox 96 03/24/20 11:43 03/23/20 03/24/20 03/24/20 22:59 06:59 14:59 Intake Total 240 / 1580 1200 / 2780 480 / 480 Output Total 275 / 1300 1270 / 2570 Balance -35 / 280 -70 / 210 480 / 480 Weight last 48 hrs Weight 252 lb 3 oz Weight 250 lb Physical Exam Narrative: EXAM NARRATIVE: GENERAL: Patient is alert, awake and oriented x3. NECK: No jugular vein distension. HEENT: No cyanosis. No icterus. No pallor. HEART: Regular S1 and S2. No murmur, rub or gallop. LUNGS: Clear to auscultate bilaterally. ABDOMEN: Soft, nontender and nondistended. Positive bowel sounds. No guarding, rebound or tenderness. CENTRAL NERVOUS SYSTEM: Grossly nonfocal. EXTREMITIES: Lower extremities with trace edema bilaterally. Urinary Catheter Management^: Vance: Cath Placed During This Visit: yes, but has since been removed by the nurse Reason for Continuing Indwelling Catheter: Decision to DC Catheter Urinary Catheter Date of Insertion: 03/17/20 Urinary Catheter Time of Insertion: 08:23 Date Urinary Catheter Removed: 03/20/20 Time Urinary Catheter Discontinued: 08:00 Data : 03/22/20 04:05 03/22/20 04:05 A&P Assessment and plan (1) Atrial fibrillation: Patient had episode of postop atrial fibrillation. Last night he had another episode. I will increase metoprolol to 50 mg once a day. Continue amiodarone to 400 twice daily. Continue to monitor him for 24 more hours if continues to do fine we will discharge him tomorrow Status: Acute Qualifiers: Atrial fibrillation type: paroxysmal Qualified Code(s): I48.0 - Paroxysmal atrial fibrillation (2) Status post aorto-coronary artery bypass graft: Stable from a coronary disease perspective status post bypass. Continue to optimize medicine Status: Acute (3) Essential hypertension: Pressures well controlled. Status: Acute Attestations Medical Necessity Statement*: Patient require continuation hospitalization for above defined care. Coding Level of Care Code Established Pt Acute Television Station Manager for Kirby Rahman Patient Type Established History Expanded Problem Focused Exam Expanded Problem Focused Medical Decision Making Moderate Complexity Diagnoses Atrial fibrillation I48.0 Atrial fibrillation type: paroxysmal Status post aorto-coronary artery bypass graft Z95.1 Essential hypertension I10
[2020-03-24] MEDS: metoprolol tartrate 50 mg Tablet PO (17:05)
[2020-03-24 17:38] LABS: Glucose Point of Care 220 mg/dL (70-110)
[2020-03-24 20:07] LABS: Glucose Point of Care 225 mg/dL (70-110)
[2020-03-24] MEDS: atorvastatin 40 mg Tablet 20 MG PO (21:12)
[2020-03-24] MEDS: oxyCODONE-APAP 5-325 mg Tablet PO (21:12)
[2020-03-25] VITALS (10 sets, daily range): BP systolic 119–163; BP diastolic 63–91; PULSE 65–80; RESP 16–18; TEMP 36.8–37.2; O2SAT 92–97
[2020-03-25] MEDS: clindamycin 150 mg Capsule 300 MG PO ×4 (00:44→19:14)
--- NOTE | 2020-03-25 05:55 | P.DS_ITS ---
Discharge Providers Date of Admission: 03/17/20 05:02 Date of Discharge: March 25, 2020 Attending Provider at Admission: Denny Solomon MD Attending Provider at Discharge: Denny Solomon MD Primary Care Provider: Geraldo Huerta MD Diagnoses at Discharge Discharge Diagnosis (1) Atrial fibrillation: Status: Acute Problem details: Intermittent episodic status post atrial fibrillation, resolved and discharge Qualifiers: Atrial fibrillation type: paroxysmal Qualified Code(s): I48.0 - Paroxysmal atrial fibrillation (2) Status post aorto-coronary artery bypass graft: Status: Acute (3) Essential hypertension: Status: Acute Problem details: Stable Reason for Visit Reason for Visit: cabg Hospital Course Discharge Summary: Mr. Glass is a 69-year-old gentleman with ischemic cardiomyopathy and prior inferior infarction with transmural scarring who presented with increasing dyspnea with exertion and chest discomfort. Subsequent evaluation by Dr. Mansfield included left heart catheterization which revealed severe three-vessel coronary artery disease including total occlusion of the RCA high-grade lesions of the LAD and circumflex system. He has depressed ejection fraction. Given his multisegment multivessel disease, decreased ejection fraction, and diabetes mellitus, surgical revascularization was recommended. He underwent careful outpatient preop evaluation. He was electively mated on March 17 and underwent four-vessel coronary artery bypass grafting. Postoperatively, he convalesced in the ICU where he did well and a uneventful early postop course. He progressed well though he did develop some episodic atrial fibrillation which was controlled with use of IV amiodarone and converted spontaneously. We were separately able to transition to oral medication. Due to occasional breakthrough of his atrial fibrillation, Dr. Mansfield recommend initiation of Eliquis 5 mg twice daily prophylactically. Over the past 48 hours, he is remained in sinus rhythm. Tolerating a diabetic diet. Incisions are clean and dry. Sternum is stable. Peripheral edema is resolved. Lungs are clear. He is ambulating independently. He was noted developed some swelling of his left upper extremity where 2 previous IVs have been placed. Ultrasound was negative for substantial thrombus except for a very isolated area, quite superficial but it the skin at a probable IV insertion site. I elected to place him on Cleocin empirically and he did receive IV Rocephin, and 1 dose of IV vancomycin as well. Left upper extremity swelling has improved within 24 hours. I will continue Cleocin for another 5 days at discharge. He is eager for discharge. He will be discharged home today with home health services in stable condition. He will be scheduled to follow-up to see me in 1 week. Discharge instructions have been reviewed with him and his . All questions have been answered. Appropriate contact information has been provided. Physical Exam Chest: COMMONS NORMALS: normal inspection of the chest (Sternotomy incision clean and dry. Drain sites well approximated. Sternum stable to palpation.) and normal palpation of entire chest wall Resp: COMMON NORMALS: normal respiratory effort, No use of accessory muscles and clear to auscultation bilaterally EFFORT & INSPECTION: Yes able to speak in complete sentences AUSCULTATION: clear to auscultation bilaterally Cardio: COMMON NORMALS: regular rhythm, S1 normal heart sound present, S2 no rmal heart sound present, No murmurs present (Cardio) and No rub (Cardio) RHYTHM: regular rhythm HEART SOUNDS: S1 normal heart sound present and S2 normal heart sound present Extremity: COMMON NORMALS: no clubbing, cyanosis or edema Urinary Catheter Management^: Vance: Cath Placed During This Visit: yes, but has since been removed by the nurse Reason for Continuing Indwelling Catheter: Decision to DC Catheter Urinary Catheter Date of Insertion: 03/17/20 Urinary Catheter Time of Insertion: 08:23 Date Urinary Catheter Removed: 03/20/20 Time Urinary Catheter Discontinued: 08:00 Discharge Data Data Completed and Pending: Completed Studies During Hospitalization Category Date Time Status XR chest 1V kika ble 74631 Routine Exams 03/17/20 08:21 Completed XR chest 1V kika ble [id number] Routine Exams 03/18/20 06:00 Completed XR chest 1V kika ble [id number] Routine Exams 03/19/20 06:00 Completed XR chest 1V kika ble 81125 Routine Exams 03/20/20 06:00 Completed XR chest 1V kika ble [id number] Routine Exams 03/22/20 06:00 Completed XR chest 1V kika ble [id number] Stat Exams 03/17/20 19:28 Completed XR femur LT 1V 73 551 Routine Exams 03/17/20 17:13 Completed XR femur RT 1V 73 551 Routine Exams 03/17/20 17:13 [place] [id number] Routi ne Ultrasound 03/16/20 12:59 Completed Pending at discharge Category Date Time Status ABG FULL [Arteria l Blood Gas Full] Routine Lab 03/17/20 06:20 Ordered ABO/Rh Type Routi ne Lab 03/16/20 13:15 Results Complete Crossmat ch Routine Lab 03/16/20 13:15 Results FFP [Frozem Plasm a FZ <24 1st Cont] Routine Lab 03/17/20 18:07 Results Leukocyte Reduced RBC Routine Lab 03/16/20 13:15 Results Platelets Leuko-R educed Routine Lab 03/16/20 13:15 Results Retype for XM Rou lucie Lab 03/16/20 13:15 Results Type and Screen R outine Lab 03/16/20 13:15 Results Vancomycin Trough Timed Lab 03/25/20 19:30 [place] [id number] Routin e Ultrasound 03/24/20 07:10 Taken Labs from last 24 hours 03/24/20 03/24/20 03/24/20 20:00 17:08 10:59 POC Glucose 225 220 256 03/24/20 06:23 POC Glucose 185 Vitals: Last Vital Signs Temp 98.3 F 03/25/20 04:00 Pulse 75 03/25/20 04:00 Resp 18 03/25/20 04:00 BP 144/73 03/25/20 04:00 Pulse Ox 92 03/25/20 04:00 Discharge Plan Discharge Patient Disposition: Home Health Service Condition: Stable Prescriptions: New oxycodone-acetaminophen 5-325 mg Tablet 1 tab PO Q6H PRN (Reason: Moderate To Severe Pain) Qty: 28 RF: 0 amiodarone [Pacerone] 200 mg Tablet 400 mg PO BID Qty: 60 RF: 1 Eliquis 5 mg Tablet 5 mg PO BID Qty: 60 RF: 2 clindamycin HCl 150 mg Capsule 300 mg PO Q6H Qty: 20 RF: 0 metoprolol tartrate 50 mg Tablet 50 mg PO BID Qty: 60 RF: 4 Continued sertraline 100 mg tablet 100 mg PO DAILY RF: 0 pioglitazone 45 mg tablet 45 mg PO DAILY RF: 0 losartan 100 mg tablet 100 mg PO DAILY RF: 0 pravastatin 20 mg tablet 20 mg PO DAILY RF: 0 glimepiride 4 mg tablet 4 mg PO BID RF: 0 aspirin [Adult Aspirin Regimen] 81 mg tablet,delayed release (DR/EC) 81 mg PO DAILY RF: 0 glucosamine HCl 1,500 mg tablet 1,500 mg PO DAILY RF: 0 multivitamin Capsule 1 cap PO DAILY RF: 0 cinnamon bark [Cinnamon] 500 mg capsule 1,000 mg PO DAILY RF: 0 Basaglar KwikPen U-100 Insulin 100 unit/mL (3 mL) insulin pen 38 unit SUBCUT DAILY RF: 0 isosorbide mononitrate 30 mg tablet extended release 24 hr 15 mg PO BID RF: 0 nitroglycerin 0.4 mg tablet, sublingual 0.4 mg SUBLINGUAL Q5M Qty: 30 RF: 3 Discontinued metoprolol succinate 25 mg tablet extended release 24 hr 12.5 mg PO DAILY Qty: 45 RF: 3 propranolol 20 mg tablet 20 mg PO BID RF: 0 Discharge Orders: Discharge Order (Routine); Ordered 03/25/20 Ordered By: Denny Solomon Referrals: [facility] [Outside] Denny Solomon MD [Physician] - 04/02/20 Discharge Diet: Diabetic Discharge Activity: Limit activity as instructed Activity Restrictions/Additional Instructions: No lifting, pulling, or pushing more than 5 pounds for the next 6 weeks No swimming or tub baths x2 weeks May shower daily, drying incision completely afterwards Report any fever, increasing pain, redness of incision, drainage of incision. Discharge Attestations Time Spent in Discharge Care*: greater than 30 min Specific Discharge Activities: Specific discharge activities: educating patient, discussing with pcp/other providers, discussing with nurse outreach case manager/social workers/dc planners, documenting/other paperwork and evaluating patient/reviewing data Status at Discharge: Cognitive status at discharge: cognitively intact , Behavioral status at discharge: cooperative , Functional status at discharge: independent ambulation Overall status at discharge: patient is progressing back to baseline Quality Metrics Clinical Quality Measures During this hospital stay, did patient experience: None Coding Level of Care Code Acute Conservation Coordinator for Gregoriog Fwd Diagnoses Atrial fibrillation I48.0 Atrial fibrillation type: paroxysmal Status post aorto-coronary artery bypass graft Z95.1 Essential hypertension I10
[2020-03-25 06:59] LABS: Glucose Point of Care 181 mg/dL (70-110)
[2020-03-25] MEDS: metoprolol tartrate 50 mg Tablet PO (08:25)
[2020-03-25] MEDS: apixaban 5 mg Tablet PO ×2 (08:25→17:55)
[2020-03-25] MEDS: losartan 50 mg Tablet 100 MG PO (08:25)
[2020-03-25] MEDS: aspirin 325 mg Tablet PO (08:25)
[2020-03-25] MEDS: amiodarone 200 mg Tablet 400 MG PO ×2 (08:26→17:55)
[2020-03-25] MEDS: pantoprazole DR 40 mg Tablet PO ×2 (08:26→19:14)
[2020-03-25] MEDS: cefTRIAXone 1,000 MG in sodium chloride 0.9% (plus) 50 ML 100 MG IV ×2 (08:27→19:13)
[2020-03-25] MEDS: chlorhexidine gluconate 0.12% Btl 473 mL 15 ML MUCOUS MEM ×2 (08:37→18:06)
[2020-03-25] MEDS: chlorhexidine gluconate 4% Btl 118 mL 1 APPLIC TOPICAL (08:37)
[2020-03-25] MEDS: metoprolol tartrate 25 mg Tablet PO (09:36)
[2020-03-25 10:51] LABS: Glucose Point of Care 251 mg/dL (70-110)
[2020-03-25 13:25] LABS: Alanine Aminotransferase 28 U/L (0-41); Alkaline Phosphatase 60 IU/L (40-130); Anion Gap 14.1 (5-19); Aspartate Amino Transferase 25 U/L (0-40); Blood Urea Nitrogen 12 mg/dL (8-23); Calcium 8.5 mg/dL (8.5-10.5); Carbon Dioxide 24 mmol/L (22-29); Chloride 101 mmol/L (98-107); Globulin 2.7 g/dL (1.3-4.6); Glucose 254 mg/dL (65-115); Osmolality Calculated 285 mOsm/kg (285-295); Potassium 4.1 mmol/L (3.5-5.1); Sodium 135 mmol/L (136-145); Total Bilirubin 0.5 mg/dL (0.15-1.2); Total Protein 5.7 g/dL (6.6-8.7)
[2020-03-25 17:39] LABS: Glucose Point of Care 235 mg/dL (70-110)
[2020-03-25] MEDS: metoprolol tartrate 50 mg Tablet 75 MG PO (17:52)
[2020-03-25] MEDS: oxyCODONE-APAP 5-325 mg Tablet PO (18:04)
--- NOTE | 2020-03-25 18:15 | P.PN_ITS ---
Subjective Subjective: Interval history: Patient had another episode of atrial fibrillation with rapid ventricle response and this morning given extra 25 mg of metoprolol which later aborted the A. fib. Medications: Reviewed: Yes Vitals/I&O/Wt Last Vital Signs Temp 98.5 F 03/25/20 16:00 Pulse 65 03/25/20 16:00 Resp 18 03/25/20 18:04 BP 132/66 03/25/20 16:00 Pulse Ox 95 03/25/20 16:00 03/25/20 03/25/20 03/25/20 06:59 14:59 22:59 Intake Total 1072 / 1072 Output Total 1600 / 1600 125 / 125 Balance -1600 / 250 1072 / 1072 -125 / 947 Weight last 48 hrs Weight 266 lb 4.8 oz Weight 252 lb 3 oz Physical Exam Narrative: EXAM NARRATIVE: GENERAL: Patient is alert, awake and oriented x3. NECK: No jugular vein distension. HEENT: No cyanosis. No icterus. No pallor. HEART: Regular S1 and S2. No murmur, rub or gallop. LUNGS: Clear to auscultate bilaterally. ABDOMEN: Soft, nontender and nondistended. Positive bowel sounds. No guarding, rebound or tenderness. CENTRAL NERVOUS SYSTEM: Grossly nonfocal. EXTREMITIES: Lower extremities with trace edema bilaterally. Urinary Catheter Management^: Vance: Cath Placed During This Visit: yes, but has since been removed by the nurse Reason for Continuing Indwelling Catheter: Decision to DC Catheter Urinary Catheter Date of Insertion: 03/17/20 Urinary Catheter Time of Insertion: 08:23 Date Urinary Catheter Removed: 03/20/20 Time Urinary Catheter Discontinued: 08:00 Data : 03/22/20 04:05 03/25/20 13:00 A&P Assessment and plan (1) Atrial fibrillation: Patient had episode of postop atrial fibrillation. This morning he had another episode. I will increase metoprolol to 75 mg once a day. Continue amiodarone to 400 twice daily. Continue to monitor him for 24 more hours if continues to do fine we will discharge him tomorrow Status: Acute Qualifiers: Atrial fibrillation type: paroxysmal Qualified Code(s): I48.0 - Paroxysmal atrial fibrillation (2) Status post aorto-coronary artery bypass graft: Stable from a coronary disease perspective status post bypass. Continue to optimize medicine Status: Acute (3) Essential hypertension: Well-controlled. Status: Acute Additional A&P Information I will restart the IV amiodarone. Attestations Medical Necessity Statement*: Require continuation hospitalization for above defined care. Coding Level of Care Code Established Pt Acute Fire Production Operator for Gregoriog Fwd Patient Type Established History Expanded Problem Focused Exam Expanded Problem Focused Medical Decision Making Moderate Complexity Diagnoses Atrial fibrillation I48.0 Atrial fibrillation type: paroxysmal Status post aorto-coronary artery bypass graft Z95.1 Essential hypertension I10
--- NOTE | 2020-03-25 18:56 | PC.NURSE ---
reported to night and day nurse that patient is not on the tele 03/25/20 at 19:00
[2020-03-25] MEDS: phenol oral Spray 177 mL 3 SPRAY MUCOUS MEM (19:12)
[2020-03-25 21:47] LABS: Glucose Point of Care 246 mg/dL (70-110)
[2020-03-25] MEDS: atorvastatin 40 mg Tablet 20 MG PO (22:04)
--- NOTE | 2020-03-25 22:47 | PC.NURSE ---
lab unable to draw from patient due to patient having poor veins for 1930 vanc trough, patient vanc due at 2029, attempted several draws and charge nurse was successful at obtaining blood, sent to lab and trough came back <4 notified Handy in Pharm. who instructed to give late dose now.
[2020-03-25 23:45] LABS: Vancomycin Trough 16.2 ug/mL (10-15)
[2020-03-26] VITALS: BP 142/75; PULSE 59; RESP 18; TEMP 37; O2SAT 97
[2020-03-26] MEDS: clindamycin 150 mg Capsule 300 MG PO ×2 (00:52→08:01)
[2020-03-26 04:00] VITALS: BP 165/77; PULSE 63; RESP 18; TEMP 36.6; O2SAT 94
[2020-03-26 06:34] LABS: Glucose Point of Care 207 mg/dL (70-110)
[2020-03-26 07:46] VITALS: BP 121/76; PULSE 79; RESP 18; TEMP 36.7; O2SAT 95
[2020-03-26] MEDS: amiodarone 200 mg Tablet 400 MG PO (08:00)
[2020-03-26] MEDS: metoprolol tartrate 50 mg Tablet 75 MG PO (08:00)
[2020-03-26 08:01] VITALS: BP 121/76
[2020-03-26] MEDS: pantoprazole DR 40 mg Tablet PO (08:01)
[2020-03-26] MEDS: losartan 50 mg Tablet 100 MG PO (08:01)
[2020-03-26] MEDS: aspirin 81 mg EC Tablet PO (08:02)
[2020-03-26] MEDS: apixaban 5 mg Tablet PO (08:02)
[2020-03-26] MEDS: chlorhexidine gluconate 0.12% Btl 473 mL 15 ML MUCOUS MEM (08:07)
[2020-03-26] MEDS: isosorbide mononitrate 20 mg Tablet PO (09:11)
[2020-03-26 10:59] LABS: Glucose Point of Care 235 mg/dL (70-110)
--- NOTE | 2020-03-26 11:09 | PC.SOCIAL ---
IMM Updated Updated pt on Pg 2 IMM. No questions voiced. Copy provided & left on pt's bedside table. Signed, dated, & timed copy in pt's chart.
--- NOTE | 2020-03-26 11:10 | PM.PN ---
Subjective Subjective: Interval history: Patient is in sinus rhythm today. He is walking around denies any complaint would like to go home. He has walked around with physical therapy as well. Medications: Reviewed: Yes Vitals/I&O/Wt Last Vital Signs Temp 98.0 F 03/26/20 07:46 Pulse 79 03/26/20 07:46 Resp 18 03/26/20 07:46 BP 121/76 03/26/20 08:01 Pulse Ox 95 03/26/20 07:46 03/25/20 03/26/20 03/26/20 22:59 06:59 14:59 Intake Total 240 / 1812 Output Total 425 / 425 Balance -425 / 1147 240 / 1387 Weight last 48 hrs Weight 263 lb 4 oz Weight 266 lb 4.8 oz Physical Exam Narrative: EXAM NARRATIVE: GENERAL: Patient is alert, awake and oriented x3. NECK: No jugular vein distension. HEENT: No cyanosis. No icterus. No pallor. HEART: Regular S1 and S2. No murmur, rub or gallop. LUNGS: Clear to auscultate bilaterally. ABDOMEN: Soft, nontender and nondistended. Positive bowel sounds. No guarding, rebound or tenderness. CENTRAL NERVOUS SYSTEM: Grossly nonfocal. EXTREMITIES: Lower extremities with trace edema bilaterally. Urinary Catheter Management^: Vance: Cath Placed During This Visit: yes, but has since been removed by the nurse Reason for Continuing Indwelling Catheter: Decision to DC Catheter Urinary Catheter Date of Insertion: 03/17/20 Urinary Catheter Time of Insertion: 08:23 Date Urinary Catheter Removed: 03/20/20 Time Urinary Catheter Discontinued: 08:00 Data : 03/22/20 04:05 03/25/20 13:00 A&P Assessment and plan (1) Atrial fibrillation: Currently in sinus rhythm. Continue metoprolol tartrate 75 mg twice daily and Pacerone 400 mg twice a day along with Eliquis. In 1 week we will reduce Pacerone to 400 mg once a day. Patient has been advised to keep a log of blood pressure pulse and call us if his heart rate is below 60. Status: Acute Qualifiers: Atrial fibrillation type: paroxysmal Qualified Code(s): I48.0 - Paroxysmal atrial fibrillation (2) Status post aorto-coronary artery bypass graft: Stable and doing fine from a cardiovascular perspective. Patient can be discharged home Status: Acute (3) Essential hypertension: Well-controlled. Status: Acute Additional A&P Information I will restart the IV amiodarone. Attestations Medical Necessity Statement*: Patient can be discharged home if it okay with CT surgery Coding Level of Care Code Acute Toll Repairer Central Office for [facility] Fwd Diagnoses Atrial fibrillation I48.0 Atrial fibrillation type: paroxysmal Status post aorto-coronary artery bypass graft Z95.1 Essential hypertension I10
--- NOTE | 2020-03-26 11:21 | PC.NURSE ---
Discharge note Discharge instructions given per physician orders. New meds with side effects taught, patient verbalized instructions. All questions answered.
--- NOTE | 2020-03-26 11:34 | PC.CHAP ---
Pastoral Care Encounter/Spiritual Assessment Type of Contact [] Declined card grader visit [] Patient/Family/Request visit [] Outpatient visit [] Follow-up visit [] Physician referral [] Code/Alert [x] Routine visit [] Staff referral [] Actively dying [] Patient sleeping [] Family support [] [] Out of room [] Palliative care [] [] Receiving care in room [] Pre-surgical visit [] Trauma [] Long length of stay [] ICU visit [] Other: Relational/Emotional Strength [x] Patient feels connected with others/family/visitors/staff [] Distress [] Loneliness/isolation [] Abandonment Spirituality of Patient [] Person of Gisele [] Attends Scientologist of their Gisele [] Believes in Prayer [] Reads Bible or Mormon materials [x] There are Spiritual issues to be addressed Business Management Specialist Interventions [x] Prayer [] Active listening [] Non-anxious presence [] Spiritual/emotional support [] Crisis/trauma care [] Spiritual counseling [] Bereavement support [] Provided bereavement packet [] Provided Bible/devotional materials [] Provided toy/stuffed animal, coloring book to patient or family member [] Provided Communion [] Anointing/[place] [] Salvation [] Completed spiritual assessment [] Other: Impact on Illness or Injury [] Angry [] Fearful [] Anxious [] Often cries [] Exhaustion [] Unable to work [] Unable to attend taoism [] Unable to walk/stand [] Unable to read [] Unable to drive [] Unable to eat/drink [] Unable to sleep [] Unable to be with family [] Patient intubated [] Other: Summary Time spent with patient
== END 2020-03-26 11:34 | disposition home health service (06) | DRG 236 ==
LOC: ICU 03-20 14:34 → MEDSURG 03-23 12:28
PROVIDERS: Internal Medicine Cardiovascular Disease; Admitting Provider Thoracic Surgery (Cardiothoracic Vascular Surgery); PCP Family Medicine; Visit Provider Thoracic Surgery (Cardiothoracic Vascular Surgery)
PROC: 0212093 Bypass Coronary Artery, Three Arteries from Coronary Artery with Autologous Venous Tissue, Open Approach (ICD-10-PCS; principal; 2020-03-17 07:00)
DX: I25.10 Atherosclerotic heart disease of native coronary artery without angina pectoris (principal); I47.1 Supraventricular tachycardia; I25.5 Ischemic cardiomyopathy; I10 Essential (primary) hypertension; I48.0 Paroxysmal atrial fibrillation; Z79.82 Long term (current) use of aspirin; I25.2 Old myocardial infarction; M19.90 Unspecified osteoarthritis, unspecified site; E78.5 Hyperlipidemia, unspecified; E11.9 Type 2 diabetes mellitus without complications
CPT/HCPCS: 12345; 36415; 36416; 36430; 36592; 51702; 71045; 73551; 80048; 80051; 80053; 80076; 80202; 81003; 82248; 82803; 82810; 82962; 83735; 83986; 84439; 84443; 85014; 85018; 85025; 85347; 85610; 85730; 86850; 86900; 86920; 86927; 93005; 93970; 93971; 94002; 94003; 94640; 94660; 94799; 96372; 96375; 97110; 97116; 97124; 97163; 97167; 97530; 97535; C9113; J0171; J0280; J0282; J0696; J0697; J1250; J1265; J1644; J1650; J1815; J1940; J2001; J2150; J2250; J2270; J2370; J2440; J2704; J2720; J3010; J3370; J3475; J3480; J3490; J7030; J7040; J7050; J7060; P9016; P9017; P9035; P9041; P9047

== ENCOUNTER 2020-05-28 12:18 | Outpatient (RCR) | payer MEDICARE, OTHER, SELFPAY | END 2020-06-10 23:59 | disposition home or self-care (01) | LOC: CR 12:18 | PROVIDERS: PCP Family Medicine; Referring Provider Family Medicine; Visit Provider Family Medicine | DX: I25.810 Atherosclerosis of coronary artery bypass graft(s) without angina pectoris (principal) | CPT/HCPCS: 93798 ==

== ENCOUNTER 2020-06-16 10:20 | Outpatient (RCR) | payer MEDICARE, OTHER, SELFPAY | END 2020-07-11 23:59 | disposition home or self-care (01) | LOC: CR 10:20 | PROVIDERS: PCP Family Medicine; Referring Provider Family Medicine; Visit Provider Family Medicine | DX: I25.810 Atherosclerosis of coronary artery bypass graft(s) without angina pectoris (principal) | CPT/HCPCS: 93798 ==

== ENCOUNTER 2020-07-12 06:00 | Outpatient (RCR) | payer MEDICARE, OTHER, SELFPAY | END 2020-08-10 23:59 | disposition home or self-care (01) | LOC: CR 06:00 | PROVIDERS: PCP Family Medicine; Referring Provider Internal Medicine Cardiovascular Disease; Visit Provider Family Medicine | DX: Z95.1 Presence of aortocoronary bypass graft (principal) | CPT/HCPCS: 93798 ==

== ENCOUNTER 2020-08-18 13:57 | Outpatient (CLI) | payer MEDICARE, OTHER, SELFPAY ==
--- NOTE | 2020-08-18 14:13 | XR_ITS ---
WS: [id number] RIGHT RIBS, MULTIPLE VIEWS HISTORY: RIGHT SIDED RIB PAIN COMPARISON: None available. Ribs: No rib fractures or bone destruction identified. Lungs and mediastinum: Visualized lung is clear. Minimal atelectasis at the lung base. XR/XR ribs RT 2V* [id number] IMPRESSION: No RIGHT rib fractures identified.
== END 2020-08-18 13:58 | disposition home or self-care (01) ==
LOC: RAD 14:02
PROVIDERS: PCP Family Medicine; Visit Provider Family Medicine
DX: R07.81 Pleurodynia (principal)
CPT/HCPCS: 71100

== ENCOUNTER 2020-10-13 10:26 | Outpatient (RCR) | payer MEDICARE, OTHER, SELFPAY | END 2020-11-08 23:59 | disposition home or self-care (01) | LOC: CR 10:26 | PROVIDERS: Family Provider Family Medicine; PCP Family Medicine; Referring Provider Family Medicine; Visit Provider Internal Medicine Cardiovascular Disease | DX: Z95.1 Presence of aortocoronary bypass graft (principal) | CPT/HCPCS: 93798 ==

== ENCOUNTER 2020-11-09 09:06 | Outpatient (RCR) | payer SELFPAY | END 2020-12-09 23:59 | disposition home or self-care (01) | LOC: CR 09:06 | PROVIDERS: Family Provider Family Medicine; PCP Family Medicine; Referring Provider Family Medicine; Visit Provider Internal Medicine Cardiovascular Disease | DX: Z95.1 Presence of aortocoronary bypass graft (principal) ==

== ENCOUNTER 2020-11-16 06:00 | Outpatient (RCR) | payer MEDICARE, OTHER, SELFPAY | END 2020-12-09 23:59 | disposition home or self-care (01) | LOC: SPT 06:00 | PROVIDERS: Family Provider Family Medicine; PCP Family Medicine; Referring Provider Family Medicine; Visit Provider Family Medicine | DX: M54.2 Cervicalgia (principal) | CPT/HCPCS: 93798; 97110; 97140; 97161 ==

== ENCOUNTER 2020-12-10 06:00 | Outpatient (RCR) | payer MEDICARE, OTHER, SELFPAY | END 2021-01-08 23:59 | disposition home or self-care (01) | LOC: SPT 06:00 | PROVIDERS: PCP Family Medicine; Referring Provider Family Medicine; Visit Provider Family Medicine | DX: M54.2 Cervicalgia (principal) | CPT/HCPCS: 97110; 97140 ==

== ENCOUNTER 2020-12-15 14:07 | Outpatient (RCR) | payer SELFPAY | END 2021-01-08 23:59 | disposition home or self-care (01) | LOC: CR 14:07 | PROVIDERS: Family Provider Family Medicine; PCP Family Medicine; Referring Provider Family Medicine; Visit Provider Internal Medicine Cardiovascular Disease | DX: I25.10 Atherosclerotic heart disease of native coronary artery without angina pectoris (principal); Z95.1 Presence of aortocoronary bypass graft ==

== ENCOUNTER 2021-01-11 09:57 | Outpatient (RCR) | payer SELFPAY | END 2021-02-08 23:59 | disposition home or self-care (01) | LOC: CR 09:57 | PROVIDERS: Family Provider Family Medicine; PCP Family Medicine; Referring Provider Family Medicine; Visit Provider Internal Medicine Cardiovascular Disease | DX: Z95.1 Presence of aortocoronary bypass graft (principal) ==

== ENCOUNTER 2021-02-09 13:43 | Outpatient (RCR) | payer SELFPAY | END 2021-03-10 23:59 | disposition home or self-care (01) | LOC: CR 13:43 | PROVIDERS: Family Provider Family Medicine; PCP Family Medicine; Referring Provider Family Medicine; Visit Provider Internal Medicine Cardiovascular Disease | DX: I50.9 Heart failure, unspecified (principal); Z95.1 Presence of aortocoronary bypass graft ==

== ENCOUNTER 2021-03-11 13:42 | Outpatient (RCR) | payer SELFPAY | END 2021-04-10 23:59 | disposition home or self-care (01) | LOC: CR 13:42 | PROVIDERS: Family Provider Family Medicine; PCP Family Medicine; Referring Provider Family Medicine; Visit Provider Internal Medicine Cardiovascular Disease | DX: Z95.1 Presence of aortocoronary bypass graft (principal) ==

== ENCOUNTER 2021-03-22 07:01 | Outpatient (CLI) | payer MEDICARE, OTHER, SELFPAY ==
--- NOTE | 2021-03-22 | USCV_ITS ---
Charbel Glass Age: 70 Gender: M : 1950 Exam Date: 03/22/2021 07:40 Ordering Phys: Russ Mansfield MD ([email or web address]) Technologist: Ama Carmona Exam Location: [facility] Indication: DVT EXAMINATION HISTORY: Painful legs PROCEDURES: The venous duplex Doppler examination of both lower extremities was performed in the standard fashion. The following venous structures were evaluated: common femoral vein, profunda vein, proximal portion of the greater saphenous vein, superficial femoral vein, and the popliteal vein. In addition, the posterior tibial and peroneal trunk were evaluated. Serial compression, augmentation maneuvers, and spectral Doppler flow evaluation were performed. FINDINGS: Normal 2-D Doppler and augmentation and compressibility throughout the lower extremity venous structures. Additional imaging through the proximal calf veins also reveals no thrombus. Limited evaluation of the greater saphenous vein is patent with no thrombus.. CONCLUSIONS No evidence of DVT in the above-mentioned identifiable veins. Dr Ruben Delacruz MD [facility] (Electronically Signed) Final Date: 24 March 2021 00:10 S
== END 2021-03-22 07:02 | disposition home or self-care (01) ==
PROVIDERS: PCP Family Medicine; Visit Provider Internal Medicine Cardiovascular Disease
DX: I73.9 Peripheral vascular disease, unspecified (principal)
CPT/HCPCS: 93970

== ENCOUNTER 2021-04-15 14:13 | Outpatient (RCR) | payer SELFPAY | END 2021-05-11 23:59 | disposition home or self-care (01) | LOC: CR 14:13 | PROVIDERS: Family Provider Family Medicine; PCP Family Medicine; Referring Provider Family Medicine; Visit Provider Internal Medicine Cardiovascular Disease | DX: Z95.1 Presence of aortocoronary bypass graft (principal) ==

== ENCOUNTER 2021-05-13 10:41 | Outpatient (RCR) | payer SELFPAY | END 2021-06-10 23:59 | disposition home or self-care (01) | LOC: CR 10:41 | PROVIDERS: Family Provider Family Medicine; PCP Family Medicine; Referring Provider Family Medicine; Visit Provider Internal Medicine Cardiovascular Disease | DX: Z95.1 Presence of aortocoronary bypass graft (principal) ==

== ENCOUNTER 2021-05-25 09:17 | Outpatient (CLI) | payer MEDICARE, OTHER, SELFPAY ==
[2021-05-25 09:33] VITALS: BMI 32.3
--- NOTE | 2021-05-25 09:40 | ECG_ITS ---
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 Interpretive Statements NAME OF STUDY: EXERCISE SESTAMIBI STRESS TEST INDICATION: Chest Pain Baseline blood pressure of 157/80 mm Hg, heart rate 75 beats per minute and oxygen saturation 95%. EKG showed sinus tachycardia, possible old inferior CT. Right ventricular conduction delay with nonspecific ST depression. The patient exercised for 3 minutes 30 seconds on a standard Golden protocol. Patient attained a maximum heart rate of 144 beats per minute(97% of the maximum predicted heart rate) with a blood pressure at the peak exercise of 212/83 mm Hg and oxygen saturation 95%. The EKG at the peak exercise revealed sinus tachycardia with no significant ST-T wave changes. Patient did not have any chest pain or any significant arrhythmis with the exercise. The study was terminated due to exertional fatigue and attainment of target heart rate. During the recovery phase, there were no new changes. Blood pressure at the end of the recovery phase was 174/76 mm Hg with a heart rate of 88 beats per minute and oxygen saturation of 98%. CONCLUSION: 1. Normal EKG response to treadmill exercise. 2. No exercise-induced chest pain or cardiac arrhythmia 3. Decreased exercise tolerance, attained a maximum of 7 METs. 4. Baseline hypertension with hypertensive response to exercise. 5. Perfusion scan will be documented separately. Electronically Signed On 05-27-2021 13:17:45 CDT by Nadege Jones M.D. [id number]
--- NOTE | 2021-05-25 09:40 | NMCV_ITS ---
NM lamar perf SPECT r/s* [id number] Charbel Glass Age: 70 Gender: M : 1950 Exam Date: 05/25/2021 10:29 Ordering Phys: Geraldo Huerta MD Technologist: AUDRA Gordon Exam Location: [facility] Indications: CHEST PAIN STRESS TEST [facility] IMAGE PROTOCOL Rest/Stress 1 Exercise Day Radiopharmaceutical Dose (mCi) Administration Site Administered by Rest: Tc-99m 10.7 IV AUDRA Renner Sestamibi Stress:Tc-99m 32.9 IV AUDRA Renner Sestamibi Rest: 25-May-2021 60 Discovery 630 Stress: 25-May-2021 15 Discovery 630 Radiopharmaceutical was injected at 91 % maximum heart rate. Images obtained in supine and prone position. SPECT RESULTS Technical Quality: Excellent Raw Data Analysis: Normal Image Corrections: No attenuation or motion correction applied Summed Stress Score: 16 Summed Rest Score: 13 Summed Difference Score: 3 PERFUSION FINDINGS Medium sized perfusion of moderate severity of basal to mid inferior, basal to mid inferolateral and apical lateral brown of rest images with some reversibility in basal to mid infero-septal brown on stress images. FUNCTIONAL RESULTS (calculated via Gated SPECT) Stress Image LV EF (%): 50 Stress EDV (mL):111 TID: 0.91 Stress ESV (mL):55 FUNCTIONAL FINDINGS: The left ventricle is normal in size. Transient Ischemia Dilatation of 0.91. The left ventricular ejection fraction is mildly reduced with a value of 50%. There is hypokinesis of mid to apical inferior and apical brown. Abnormal septal motion. IMPRESSIONS 1. Medium sized perfusion of moderate severity of basal to mid inferior, basal to mid inferolateral and apical lateral brown with mild reversibility in basal to mid infero-septal brown. 2. This is suggestive of old myocardial infarction in right coronary artery and circumflex artery territory with mild olimpia-infarct ischemia. 3. The left ventricular ejection fraction is mildly reduced with a value of 50%. 4. There is hypokinesis of mid to apical inferior and apical brown. Abnormal septal motion. 5. EKG portion of the study will be reported separately. Nadege Jones MD (Electronically Signed) Final Date: 27 May 2021 06:45 S
[2021-05-25 11:43] VITALS: BP 174/76; PULSE 96
== END 2021-05-25 09:18 | disposition home or self-care (01) ==
LOC: CDL 09:20
PROVIDERS: PCP Family Medicine; Visit Provider Family Medicine
DX: R07.9 Chest pain, unspecified (principal); I10 Essential (primary) hypertension; I25.9 Chronic ischemic heart disease, unspecified
CPT/HCPCS: 78452; 93017; A9500

== ENCOUNTER 2021-05-26 06:00 | Outpatient (RCR) | payer MEDICARE, OTHER, SELFPAY | END 2021-06-10 23:59 | disposition home or self-care (01) | LOC: SPT 06:00 | PROVIDERS: PCP Family Medicine; Referring Provider Family Medicine; Visit Provider Family Medicine | DX: M54.2 Cervicalgia (principal) | CPT/HCPCS: 97110; 97161 ==

== ENCOUNTER 2021-06-11 06:00 | Outpatient (RCR) | payer MEDICARE, OTHER, SELFPAY | END 2021-07-11 23:59 | disposition home or self-care (01) | LOC: SPT 06:00 | PROVIDERS: Family Provider Family Medicine; PCP Family Medicine; Referring Provider Family Medicine; Visit Provider Family Medicine | DX: M54.2 Cervicalgia (principal) | CPT/HCPCS: 97110 ==

== ENCOUNTER 2021-06-11 08:47 | Outpatient (RCR) | payer SELFPAY | END 2021-07-11 23:59 | disposition home or self-care (01) | LOC: CR 08:47 | PROVIDERS: Family Provider Family Medicine; PCP Family Medicine; Referring Provider Family Medicine; Visit Provider Internal Medicine Cardiovascular Disease | DX: Z95.1 Presence of aortocoronary bypass graft (principal) ==

== ENCOUNTER 2021-10-11 07:42 | Outpatient (CLI) | payer MEDICARE, OTHER, SELFPAY ==
--- NOTE | 2021-10-11 07:56 | MR_ITS ---
WS: [id number] MRI THORACIC SPINE noncontrast HISTORY: Chronic back pain. Fall 3 years ago. COMPARISON: None available. TECHNIQUE: Multiplanar sequences are performed in sagittal and axial planes. Mild curvature and increased kyphosis of the thoracic spine. There is also varus mild straightening o f the mid thoracic spine. No fracture or marrow edema. Disc spaces are narrowed throughout. T1-2: Small, shallow LEFT foraminal disc protrusion or osteophyte. No high-grade stenosis. T2-3: Normal. T3-4: Normal. T4-5: Normal. T5-6: Normal. T6-7: Moderate RIGHT paracentral disc protrusion contacting and deforming the RIGHT lateral thecal s ac and cord. T7-8: Small foraminal osteophytes and very shallow central disc protrusion. T8-9: Shallow central disc protrusion and bilateral mild facet arthritis. Mild foraminal narrowing. T9-10: Bilateral mild facet joint arthritis and mild foraminal narrowing. T10-11: Mild annular disc bulging. Small LEFT foraminal disc protrusion without significant stenosis . T11-12: Mild disc bulging and mild facet arthritis. No stenosis. Paravertebral soft tissues are negative. MR/MR thoracic spin wo con* [id number] IMPRESSION: 1. No acute thoracic spine fractures. 2. Mild curvature thoracic spine and straightening. 3. Moderate RIGHT paracentral disc protrusion at T6-7 with mild contact and de formity of the RIGHT lateral thecal sac. 4. Additional small LEFT foraminal disc protrusion at T10-11 without stenosis.
== END 2021-10-11 07:43 | disposition home or self-care (01) ==
LOC: RAD 07:46
PROVIDERS: PCP Family Medicine; Visit Provider Family Medicine
DX: M51.24 Other intervertebral disc displacement, thoracic region (principal); W19.XXXA Unspecified fall, initial encounter
CPT/HCPCS: 72146

== ENCOUNTER → 2022-03-23 09:06 | Outpatient (BNVA) | payer MEDICARE, OTHER, SELFPAY | PROVIDERS: PCP Family Medicine; Visit Provider Family Medicine | DX: B02.9 Zoster without complications (principal); I25.810 Atherosclerosis of coronary artery bypass graft(s) without angina pectoris; E11.9 Type 2 diabetes mellitus without complications; Z51.81 Encounter for therapeutic drug level monitoring; E78.5 Hyperlipidemia, unspecified | CPT/HCPCS: 80053; 80061; 83036 ==

== ENCOUNTER → 2022-05-05 15:10 | Outpatient (BNVA) | payer MEDICARE, OTHER, SELFPAY | PROVIDERS: PCP Family Medicine; Visit Provider Internal Medicine Cardiovascular Disease | DX: I25.10 Atherosclerotic heart disease of native coronary artery without angina pectoris (principal); I73.9 Peripheral vascular disease, unspecified; I11.0 Hypertensive heart disease with heart failure; I50.30 Unspecified diastolic (congestive) heart failure; E78.5 Hyperlipidemia, unspecified; E11.9 Type 2 diabetes mellitus without complications; Z79.4 Long term (current) use of insulin | CPT/HCPCS: 99214 ==

== ENCOUNTER → 2022-07-05 08:07 | Outpatient (BNVA) | payer MEDICARE, OTHER, SELFPAY | PROVIDERS: PCP Family Medicine; Visit Provider Family Medicine | DX: E11.9 Type 2 diabetes mellitus without complications (principal); I25.110 Atherosclerotic heart disease of native coronary artery with unstable angina pectoris; I11.0 Hypertensive heart disease with heart failure; I50.30 Unspecified diastolic (congestive) heart failure; R41.3 Other amnesia; R26.81 Unsteadiness on feet | CPT/HCPCS: 80053; 80061; 83036 ==

== ENCOUNTER 2022-08-03 09:22 | Outpatient (CLI) | payer MEDICARE, OTHER, SELFPAY ==
--- NOTE | 2022-08-03 09:30 | MR_ITS ---
WS: [id number] MRI HEAD WITHOUT CONTRAST TECHNIQUE: Sagittal T1, T2 axial, T2 axial FLAIR, axial and coronal T1 images, axial susceptibility w eighted imaging, axial diffusion weighted images, and coronal T2 images were obtained. CLINICAL INFORMATION: unsteady gait. memory loss COMPARISON: None. FINDINGS: No evidence of restricted diffusion to suggest acute ischemia. Ventricular system and basal cisterns are patent. Normal posterior fossa. Normal vascular flow voids at the skull base. No extra-axial flui d collections. No evidence of mass or mass effect. 2 or 3 tiny foci of hemosiderin on the susceptibil ity images in the RIGHT frontal lobe and periventricular white matter. Normal posterior fossa. Normal vascular flow voids at the skull base. No extra-axial fluid collection s. No evidence of mass or mass effect. Mild mucosal thickening in the paranasal sinuses. Mastoid air cells well aerated. Normal optic chiasm and pituitary infundibulum. Moderate symmetric atrophy tempor al lobes and hippocampal formations. Normal cavernous sinuses and Meckel's cave. MR/MR head wo con* [id number] IMPRESSION: 1. No evidence of restricted diffusion to suggest acute ischemia. 2. Mild small vessel changes with moderate parenchymal volume loss. Mild small vessel changes in the teja. 3. Moderate symmetric atrophy temporal lobes and hippocampal formations. 4. 2 or 3 small foci of hemosiderin in the frontal and periventricular white m atter. 5. No other suspicious findings.
== END 2022-08-03 09:23 | disposition home or self-care (01) ==
LOC: RAD 09:25
PROVIDERS: PCP Family Medicine; Visit Provider Family Medicine
DX: R26.81 Unsteadiness on feet (principal); R41.3 Other amnesia; G31.9 Degenerative disease of nervous system, unspecified
CPT/HCPCS: 70551

== ENCOUNTER → 2022-08-18 10:07 | Outpatient (BNVA) | payer MEDICARE, OTHER, SELFPAY | PROVIDERS: PCP Family Medicine; Visit Provider Family Medicine | DX: R10.9 Unspecified abdominal pain (principal); R41.3 Other amnesia | CPT/HCPCS: 83690 ==

== ENCOUNTER → 2022-10-04 08:08 | Outpatient (BNVA) | payer MEDICARE, OTHER, SELFPAY | PROVIDERS: PCP Family Medicine; Visit Provider Family Medicine | DX: I11.0 Hypertensive heart disease with heart failure (principal); I50.30 Unspecified diastolic (congestive) heart failure; E11.9 Type 2 diabetes mellitus without complications; E78.5 Hyperlipidemia, unspecified; I25.110 Atherosclerotic heart disease of native coronary artery with unstable angina pectoris | CPT/HCPCS: 80053; 80061; 83036 ==

== ENCOUNTER → 2022-12-01 14:31 | Outpatient (BNVA) | payer MEDICARE, OTHER, SELFPAY | PROVIDERS: PCP Family Medicine; Visit Provider Nurse Practitioner Family | DX: I25.110 Atherosclerotic heart disease of native coronary artery with unstable angina pectoris (principal); I11.0 Hypertensive heart disease with heart failure; I50.30 Unspecified diastolic (congestive) heart failure; I25.2 Old myocardial infarction; Z79.01 Long term (current) use of anticoagulants; Z79.82 Long term (current) use of aspirin; Z95.1 Presence of aortocoronary bypass graft | CPT/HCPCS: 99214 ==

== ENCOUNTER → 2023-01-05 08:22 | Outpatient (BNVA) | payer MEDICARE, OTHER, SELFPAY | PROVIDERS: PCP Family Medicine; Visit Provider Family Medicine | DX: E11.9 Type 2 diabetes mellitus without complications (principal); I25.10 Atherosclerotic heart disease of native coronary artery without angina pectoris; I11.0 Hypertensive heart disease with heart failure; I50.30 Unspecified diastolic (congestive) heart failure | CPT/HCPCS: 80053; 80061; 83036; 83690 ==

== ENCOUNTER → 2023-04-12 09:17 | Outpatient (BNVA) | payer MEDICARE, OTHER, SELFPAY | PROVIDERS: PCP Family Medicine; Visit Provider Family Medicine | DX: E11.9 Type 2 diabetes mellitus without complications (principal); I25.10 Atherosclerotic heart disease of native coronary artery without angina pectoris; I50.9 Heart failure, unspecified; B02.29 Other postherpetic nervous system involvement | CPT/HCPCS: 80053; 80061; 83036; 85025 ==

== ENCOUNTER → 2023-05-25 07:36 | Outpatient (BNVA) | payer MEDICARE, OTHER, SELFPAY | PROVIDERS: PCP Family Medicine; Referring Provider Family Medicine; Visit Provider Psychiatry & Neurology Neurology | DX: R25.1 Tremor, unspecified (principal); H93.19 Tinnitus, unspecified ear | CPT/HCPCS: 99203 ==

== ENCOUNTER → 2023-06-05 09:39 | Outpatient (BNVA) | payer MEDICARE, OTHER, SELFPAY | PROVIDERS: PCP Family Medicine; Visit Provider Otolaryngology | DX: H93.13 Tinnitus, bilateral (principal); H90.6 Mixed conductive and sensorineural hearing loss, bilateral; H61.23 Impacted cerumen, bilateral | CPT/HCPCS: 69210; 99203 ==

== ENCOUNTER → 2023-06-08 14:47 | Outpatient (BNVA) | payer MEDICARE, OTHER, SELFPAY | PROVIDERS: PCP Family Medicine; Visit Provider Internal Medicine Cardiovascular Disease | DX: R07.9 Chest pain, unspecified (principal); I25.110 Atherosclerotic heart disease of native coronary artery with unstable angina pectoris; R06.02 Shortness of breath; I73.9 Peripheral vascular disease, unspecified; I11.0 Hypertensive heart disease with heart failure; I50.30 Unspecified diastolic (congestive) heart failure; E11.9 Type 2 diabetes mellitus without complications; R94.31 Abnormal electrocardiogram [ECG] [EKG] | CPT/HCPCS: 93005; 99214 ==

== ENCOUNTER 2023-06-15 07:12 | Outpatient (CLI) | payer MEDICARE, OTHER, SELFPAY ==
--- NOTE | 2023-06-15 | ECG_ITS ---
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 Interpretive Statements Study: Exercise Sestamibi Stress Test Date of study: 15 [address] Jones Indication: Exertional shortness of breath Baseline blood pressure of 132/74 mm Hg, heart rate 80 beats per minute and oxygen saturation 98%. EKG showed sinus rhythm, normal axis with normal ST-Ts. The patient exercised for 7 minutes and 10 seconds on a standard Golden protocol. Patient attained a maximum heart rate of 148 beats per minute(101% of the maximum predicted heart rate) with a blood pressure at the peak exercise of 210/83 mm Hg oxygen saturation of 93%. The EKG at the peak exercise revealed sinus tachycardia with frequent isolated PVCs with no significant ST-T wave changes. Patient did not have any chest pain or any significant arrhythmis with the exercise. During the recovery phase, there were no new changes. Frequent isolated PVCs were noted in recovery. Remitted to maximal effort and shortness of breath. Blood pressure at the end of the recovery phase was 176/65 mm Hg with a heart rate of 85 beats per minute and saturation of 96%. CONCLUSION: 1. Normal EKG response to treadmill exercise. 2. No exercise-induced chest pain or cardiac arrhythmia 3. Exercise tolerance, attained a maximum of 10.2 METs. 4. Baseline normal blood pressure with hypertensive response to exercise. 5. Perfusion scan will be documented separately. Electronically Signed On 06-19-2023 17:16:54 CDT by Nadege Jones M.D. [id number]
--- NOTE | 2023-06-15 07:56 | NMCV_ITS ---
NM lamar perf SPECT r/s* [id number] Charbel Glass Age: 72 Gender: M : 1950 Exam Date: 06/15/2023 08:24 Ordering Phys: Nadege Jones MD ([email or web address]) Technologist: AUDRA Gordon Exam Location: [facility] Indications: EXERTIONAL SHORTNESS OF BREATH STRESS TEST [facility] IMAGE PROTOCOL Rest/Stress 1 Exercise Day Radiopharmaceutical Dose (mCi) Administration Site Administered by Rest: Tc-99m 11.0 IV AUDRA Renner Sestamibi Stress:Tc-99m 32.9 IV AUDRA Renner Sestamibi Rest: 15-Jun-2023 60 Discovery 630 Stress: 15-Jun-2023 15 Discovery 630 Radiopharmaceutical was injected at 96 % maximum heart rate. Images obtained in supine and prone position. SPECT RESULTS Technical Quality: Excellent Raw Data Analysis: Normal Image Corrections: No attenuation or motion correction applied Summed Stress Score: 13 Summed Rest Score: 10 Summed Difference Score: 3 PERFUSION FINDINGS Medium sized perfusion abnormality of moderate severity of basal to mid inferior, basal to mid inferolateral and apical lateral brown on rest images with mild reversibility in basal to mid inferior brown and mid inferolateral brown on supine stress images. There is improved tracer uptake in inferolateral and apical inferior brown. FUNCTIONAL RESULTS (calculated via Gated SPECT) Stress Image LV EF (%): 55 Stress EDV (mL):113 TID: 0.72 Stress ESV (mL):51 FUNCTIONAL FINDINGS: The left ventricle is normal in size. Transient Ischemia Dilatation of 0.72. The left ventricular ejection fraction is normal with a value of 55%. There seems to be mild hypokinesis of basal to mid inferior brown. IMPRESSIONS 1.Medium sized perfusion abnormality of moderate severity of basal to mid inferolateral and apical lateral brown with subtle reversibility in basal to mid inferior brown. There is improved tracer uptake in inferolateral brown on prone stress images.. 2. This may be suggestive of old myocardial infarction in RCA with mild olimpia- infarct ischemia or attenuation artifact. 3. The left ventricular ejection fraction is normal with a value of 55%. There seems to be mild hypokinesis of basal to mid inferior brown. 4. EKG portion of the study will be reported separately. Nadege Jones MD (Electronically Signed) Final Date: 18 June 2023 21:27 S
[2023-06-15 07:57] VITALS: BMI 32.7
[2023-06-15 10:01] VITALS: BP 176/84; PULSE 82
== END 2023-06-15 07:13 | disposition home or self-care (01) ==
LOC: CDL 07:12
PROVIDERS: PCP Family Medicine; Visit Provider Internal Medicine Cardiovascular Disease
DX: R06.02 Shortness of breath (principal)
CPT/HCPCS: 36415; 78452; 93017; A9500

== ENCOUNTER → 2023-08-14 12:58 | Outpatient (BNVA) | payer MEDICARE, OTHER, SELFPAY | PROVIDERS: PCP Family Medicine; Visit Provider Psychiatry & Neurology Neurology | DX: G25.0 Essential tremor (principal) | CPT/HCPCS: 99212 ==

== ENCOUNTER → 2023-08-24 09:19 | Outpatient (BNVA) | payer MEDICARE, OTHER, SELFPAY | PROVIDERS: PCP Family Medicine; Visit Provider Family Medicine | DX: R31.9 Hematuria, unspecified (principal); I10 Essential (primary) hypertension; I25.10 Atherosclerotic heart disease of native coronary artery without angina pectoris; E11.9 Type 2 diabetes mellitus without complications; E78.5 Hyperlipidemia, unspecified; R41.3 Other amnesia; I50.30 Unspecified diastolic (congestive) heart failure; I50.9 Heart failure, unspecified | CPT/HCPCS: 80053; 80061; 81000; 83690; 85025 ==

== ENCOUNTER → 2023-09-01 11:07 | Outpatient (BNVA) | payer MEDICARE, OTHER, SELFPAY | PROVIDERS: PCP Family Medicine; Visit Provider Family Medicine | DX: E11.9 Type 2 diabetes mellitus without complications (principal); I10 Essential (primary) hypertension; I25.10 Atherosclerotic heart disease of native coronary artery without angina pectoris; E78.5 Hyperlipidemia, unspecified; R41.3 Other amnesia | CPT/HCPCS: 83036; 85025 ==

== ENCOUNTER → 2023-09-26 11:38 | Outpatient (BNVA) | payer MEDICARE, OTHER, SELFPAY | PROVIDERS: PCP Family Medicine; Visit Provider Family Medicine | DX: I25.110 Atherosclerotic heart disease of native coronary artery with unstable angina pectoris (principal); R06.00 Dyspnea, unspecified; I50.30 Unspecified diastolic (congestive) heart failure | CPT/HCPCS: 80053; 83690; 83880; 84484; 85025; 85379 ==

== ENCOUNTER 2023-09-27 10:13 | Outpatient (CLI) | payer MEDICARE, OTHER, SELFPAY ==
--- NOTE | 2023-09-27 10:16 | XR_ITS ---
WS: [id number] Exam: XR chest 2V* [id number] Date/Time of Exam: 09/27/2023 10:25 AM Reason For Exam: sob Comparison 03/20/2020. The lungs are fully expanded and clear. The heart is not enlarged. The mediastinum is normal in conto ur. Signs of previous CABG surgery and median sternotomy. Bony structures are unremarkable. IMPRESSION: 1. No acute cardiopulmonary finding.
== END 2023-09-27 10:14 | disposition home or self-care (01) ==
LOC: RAD 10:14
PROVIDERS: PCP Family Medicine; Visit Provider Family Medicine
DX: R06.00 Dyspnea, unspecified (principal)
CPT/HCPCS: 71046

== ENCOUNTER → 2023-10-04 12:45 | Outpatient (BNVA) | payer MEDICARE, OTHER, SELFPAY | PROVIDERS: PCP Family Medicine; Visit Provider Internal Medicine | DX: I11.0 Hypertensive heart disease with heart failure (principal); I50.30 Unspecified diastolic (congestive) heart failure; I25.110 Atherosclerotic heart disease of native coronary artery with unstable angina pectoris; E78.5 Hyperlipidemia, unspecified; E11.51 Type 2 diabetes mellitus with diabetic peripheral angiopathy without gangrene; Z79.01 Long term (current) use of anticoagulants; Z79.84 Long term (current) use of oral hypoglycemic drugs | CPT/HCPCS: 99215 ==

== ENCOUNTER 2023-10-04 17:52 | Inpatient (IN) | payer MEDICARE, OTHER, SELFPAY ==
--- NOTE | 2023-10-04 19:03 | P.HP_ITS ---
Providers/Chief Complaint 2 Admitting Physician: Gregorio Phillip M.D Primary Care Provider: Geraldo Huerta MD History of Present Illness Charbel Glass is a 72 year old male with past medical history of CAD s/p CABG, diabetes, atrial fibrillation on Eliquis who has been having worsening chest pain and shortness of breath for the last 1 month. For the last 3 days he states he cannot walk any significant distance without having symptoms. He has been directly admitted from hospital with suspicion of unstable angina. He had a stress test done a few months ago that showed abnormality but size of defect was not large at that time. Medical therapy was pursued. Review of Systems 2 Const: Denies: fever(s) or chills Card: Reports: chest pain, lightheadedness, pre-syncope, dyspnea on exertion and orthopnea; Denies: palpitations, irregular heart rhythm, swelling of feet/ankles or leg pain with exertion Resp: Reports: dyspnea; Denies: productive cough or non-productive cough Musc: Reports: back pain; Denies: neck pain Neuro: Reports: dizziness; Denies: headache(s) Psych: Denies: anxiety, depression, suicidal ideation or homicidal ideation Evan/Lymph: Denies: easy bruising or easy bleeding Medications/Allergies Home Medications Medication Instructions Recorded Confirmed Last Taken Type aspirin 81 mg tablet,delayed 81 mg PO DAILY 03/03/20 10/04/23 10/04/23 08:00 History release (Adult Aspirin Regimen) glucosamine HCl 1,500 mg tablet 1,500 mg PO DAILY 03/03/20 10/04/23 10/04/23 History multivitamin 1 cap PO DAILY 03/03/20 10/04/23 10/04/23 08:00 History cinnamon bark 500 mg capsule 1,000 mg PO DAILY 03/10/20 10/04/23 10/04/23 08:00 History (Cinnamon) magnesium oxide 400 mg PO DAILY #90 caps 03/08/21 10/04/23 10/04/23 08:00 Rx losartan 25 mg tablet 25 mg PO DAILY 06/08/23 10/04/23 10/04/23 08:00 History pregabalin 200 mg capsule 200 mg PO BID 06/08/23 10/04/23 10/04/23 08:00 History sertraline 100 mg tablet 100 mg PO DAILY 06/08/23 10/04/23 10/04/23 08:00 History apixaban 5 mg tablet (Eliquis) 5 mg PO BID #180 tabs 06/24/23 10/04/23 10/04/23 08:00 Rx insulin glargine 100 unit/mL (3 See Rx Instructions .Route 08/24/23 10/04/23 Unknown Rx mL) subcutaneous pen (Basaglar .COMPLEX #60 mL KwikPen U-100 Insulin) pravastatin 20 mg tablet See Rx Instructions .Route 09/20/23 10/04/23 10/04/23 08:00 Rx .COMPLEX #90 tabs glimepiride 4 mg tablet 4 mg PO BID #60 tabs 09/21/23 10/04/23 10/04/23 08:00 Rx semaglutide 1 mg/dose (4 mg/3 mL) 1 mg (0.75 mL) SUBCUT .weekly #3 mL 09/26/23 10/04/23 09/23/23 08:00 Rx subcutaneous pen injector cyclobenzaprine 10 mg tablet 10 mg PO TID PRN muscle spasms 10/04/23 10/04/23 10/03/23 History Allergies Allergy/AdvReac Type Severity Reaction Status Date / Time No Known Allergies Allergy Verified 10/04/23 13:05 PFSH Acute 2 PFSH: Medical History Postherpetic neuralgia at T3-T5 level Essential tremor Claudication in peripheral vascular disease CHF (congestive heart failure) Atrial fibrillation Intermittent episodic status post atrial fibrillation, resolved and discharge SVT (supraventricular tachycardia) Diabetes type 2, controlled Bronchitis HLD (hyperlipidemia) Old IA (myocardial infarction) Essential hypertension Stable Shortness of breath CAD (coronary artery disease) Angina of effort Family History Mother Dementia Father Cancer CAD (coronary artery disease) Grandfather Diabetes Social History Smoking and tobacco/nicotine status: never used tobacco/nicotine Alcohol intake: current Alcohol intake frequency: few times a week Alcohol type: wine Substance/Drug Use: never Physical Exam 2 Narrative: GENERAL: [] HEENT: Exam within normal limits. [] BACK: Exam normal. [] LUNGS: Clear to auscultation. [] HEART: Regular rate and rhythm. [] EXTREMITIES: No edema. [] NEUROLOGIC: Exam normal. [] SKIN: Unremarkable. [] Data 10/05/23 01:13 10/05/23 01:13 A&P Assessment and plan (1) Chest pain: (2) CHF (congestive heart failure): Qualifiers: Heart failure type: diastolic Heart failure chronicity: unspecified Qualified Code(s): I50.30 - Unspecified diastolic (congestive) heart failure (3) HLD (hyperlipidemia): (4) Essential hypertension: (5) CAD (coronary artery disease): Qualifiers: Coronary Disease-Associated Artery/Lesion type: ambler artery [place] vs. transplanted heart: ambler heart Associated angina: with unstable angina Qualified Code(s): I25.110 - Atherosclerotic heart disease of ambler coronary artery with unstable angina pectoris (6) Diabetes type 2, controlled: Plan Patient has been having worsening shortness of breath and chest discomfort episodes. Symptoms have been going on for 1 month but for the last 3 to 4 days they have worsened. He has been admitted directly from the office for coronary angiogram in the morning. Keep n.p.o. after midnight. Keep holding Eliquis. Aspirin. We will trend troponins. If there is significant uptrend, will start on heparin. Obtain EKG. Ordering echocardiogram Sliding scale insulin. Check BMP and CBC Attestations 2 Medical Necessity Statement*: Care expected to cross 2 midnights. Patient has been admitted with unstable angina symptoms. Plan for coronary angiogram in the morning Coding Level of Care Code Acute Code for Chg Fwd Diagnoses Chest pain R07.9 Diastolic congestive heart failure, unspecified HF chronicity I50.30 Heart failure type: diastolic Heart failure chronicity: unspecified HLD (hyperlipidemia) E78.5 Essential hypertension I10 Coronary artery disease involving ambler coronary artery of ambler heart with unstable angina pectoris I25.110 Coronary Disease-Associated Artery/Lesion type: ambler artery [place] vs. transplanted heart: ambler heart Associated angina: with unstable angina Diabetes type 2, controlled E11.9
--- NOTE | 2023-10-04 19:15 | USCV_ITS ---
Charbel Glass Age: 72 Gender: M : 1950 Exam Date: 10/04/2023 20:43 Ordering Phys: Gregorio Phillip M.D ([email or web address]) Technologist: NAN [place] [facility]ication: unstable angina. s/p CABG 2019. BP: 144 / 76 HR: 66 Rhythm: Sinus Technical Quality: Adequate MEASUREMENTS (Male / Female) Normal Values 2D ECHO LV Diastolic Diameter PLAX 5.5 cm 4.2 - 5.9 / 3.9 - 5.3 cm LV Systolic Diameter PLAX 4.3 cm IVS Diastolic Thickness 1.6 cm 0.6 - 1.0 / 0.6 - 0.9 cm IVS Systolic Thickness 2.0 cm LVPW Diastolic Thickness 1.0 cm 0.6 - 1.0 / 0.6 - 0.9 cm LVPW Systolic Thickness 1.4 cm LVOT Diameter 2.3 cm LV Ejection Fraction 2D Teich 43.7 % LV Ejection Fraction MOD 2C 55.0 % LV Ejection Fraction 2C AL 51.6 % LA Diameter 5.1 cm LA Width 4.2 cm LA Height 5.9 cm RA Width 3.0 cm RA Height 3.8 cm Aorta at Sinotubular Diameter 3.3 cm IVC Diameter 1.0 cm M-MODE Aortic Annulus Diameter 2.9 cm LA Ao Ratio MM 1.8 MV E Point Septal Separation 0.7 cm DOPPLER AV Peak Velocity 111.0 cm/s LVOT Peak Velocity 70.0 cm/s AV Area Cont Eq vti 2.8 cm squared AV Area Cont Eq pk 2.7 cm squared MV Peak Velocity 100.0 cm/s MV Area PHT 2.1 cm squared Mitral E to A Ratio 0.6 MV E' Velocity 30.0 cm/s Mitral E to MV E' Ratio 5.8 Mitral E to LV E' Lateral Ratio 3.9 Mitral E to LV E' Septal Ratio 11.7 TV Peak E Velocity 57.0 cm/s PV Peak Velocity 168.0 cm/s RV Acceleration Time 0.1 s RV Ejection Time 0.3 s RV AcT/ET 0.2 FINDINGS Left Ventricle Left ventricle is mildly dilated. LV systolic function is moderately reduced with EF of 35 to 40%. Mild to moderate global hypokinesis with moderate to severe hypokinesis of inferolateral wall. Grade 1 diastolic dysfunction Right Ventricle Normal in size and function Right Atrium Normal in size Left Atrium Normal in size Mitral Valve Structurally normal mitral valve. Mild mitral regurgitation. Aortic Valve Structurally normal aortic valve. No significant stenosis or regurgitation. Tricuspid Valve Mild tricuspid regurgitation. Insufficient TR jet to evaluate RVSP. Pulmonic Valve Trace pulmonic regurgitation. Pericardium Small sized pericardial effusion Aorta Normal in size IVC Appears to be normal CONCLUSIONS LV systolic function is moderately reduced with EF of 35 to 40%. Above-mentioned regional wall motion abnormalities. Grade 1 diastolic dysfunction. Mild mitral regurgitation Mild tricuspid regurgitation Trace pulmonic regurgitation Small size pericardial effusion. Compared to prior echocardiogram from 2019, no significant changes are seen. Gregorio Phillip MD (Electronically Signed) Final Date: 05 October 2023 11:46 S
[2023-10-04 20:41] LABS: D Dimer <= 0.27 ug/mLFEU (0-0.59)
[2023-10-04 20:42] LABS: Troponin(5th) Baseline 16 ng/L (0-15)
[2023-10-04 20:44] LABS: Alanine Aminotransferase 21 U/L (0-41); Albumin Level 3.7 g/dL (3.5-5.2); Alkaline Phosphatase 102 U/L (40-130); Aspartate Amino Transferase 15 U/L (0-40); Blood Urea Nitrogen 21 mg/dL (8-23); Calcium 9.3 mg/dL (8.5-10.5); Carbon Dioxide 26 mmol/L (22-29); Chloride 101 mmol/L (98-107); Globulin 3.1 g/dL (1.3-4.6); Glucose 223 mg/dL (65-115); Osmolality Calculated 296 mOsm/kg (285-295); Sodium 138 mmol/L (136-145); Total Bilirubin 0.4 mg/dL (0.15-1.2); Total Protein 6.8 g/dL (6.6-8.7)
[2023-10-04 20:45] LABS: Lactate (Lactic Acid level) 2.3 mmol/L (0.5-2.2)
[2023-10-04 21:20] LABS: Glucose Point of Care 190 mg/dL (70-110)
[2023-10-04] MEDS: insulin lispro 100 unit/1 mL SUBCUT (21:49)
[2023-10-04 22:14] LABS: Troponin 5 2HR 14.92 ng/L (0-15)
[2023-10-04 22:17] LABS: Troponin 5 2HR Delta -1.08 ABS# (0-10)
[2023-10-04 22:30] VITALS: BP 144/76
[2023-10-04 23:43] VITALS: BP 104/42; PULSE 63; RESP 18; TEMP 36.8; O2SAT 94
[2023-10-05] VITALS (64 sets, daily range): BP systolic 107–138; BP diastolic 53–74; PULSE 63–77; RESP 15–24; TEMP 36.4–37.2; O2SAT 90–97
[2023-10-05 01:22] LABS: Basophils % 0.3 %; Eosinophils # 0.4 10^3/uL (0.0-0.8); Hematocrit 41.5 % (37-53); Lymphocytes # 2.5 10^3/uL (0.8-4.8); Lymphocytes % 25.1 %; Mean Corpuscular HGB Conc 34.5 g/dL (30-55); Mean Corpuscular Hemoglobin 31.2 pg (27-33); Mean Corpuscular Volume 90.4 fl (82-101); Mean Platelet Volume 10.8 fL (7.4-10.4); Monocytes # 1.1 10^3/uL (0.2-0.9); Monocytes % 11.5 %; Neutrophils # 5.73 10^3/uL (1.8-7.7); Neutrophils % 57.9 %; Nucleated Red Blood Cells % 0 %; Platelet Count 168 10^3/cmm (157-399); Red Blood Count 4.59 10^6/uL (3.85-5.65); Red Cell Distribution Width 12.1 % (12.1-15.1)
[2023-10-05 01:45] LABS: Troponin 5 6HR 14.78 ng/L (0-15)
[2023-10-05 01:47] LABS: Anion Gap 15.1 (5-19); Blood Urea Nitrogen 20 mg/dL (8-23); Calcium 9.6 mg/dL (8.5-10.5); Carbon Dioxide 27 mmol/L (22-29); Chloride 103 mmol/L (98-107); Glucose 166 mg/dL (65-115); Osmolality Calculated 298 mOsm/kg (285-295); Potassium 4.1 mmol/L (3.5-5.1); Sodium 141 mmol/L (136-145)
[2023-10-05 01:49] LABS: Troponin 5 6HR Delta -1.22 ng/L (0-12)
[2023-10-05 07:05] LABS: Glucose Point of Care 120 mg/dL (70-110)
--- NOTE | 2023-10-05 07:43 | ECG_ITS ---
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 Measurements Intervals [place] Rate: 69 P: 59 AK: 143 QRS: -10 QRSD: 106 T: 55 QT: 418 QTc: 448 Interpretive Statements SINUS RHYTHM LOW QRS VOLTAGE IN PRECORDIAL LEADS [QRS DEFLECTION < 1.0 mV IN CHEST LEADS] Compared to ECG 03/19/2020 18:00:23 Atrial fibrillation no longer present Electronically Signed On 10-05-2023 9:29:28 DISPLAY FABRICATOR by Brandan Gudino M.D. [id number]
--- NOTE | 2023-10-05 08:36 | W.PM.OPSUD ---
Surgery/Procedure H&P Update DATE OF PROCEDURE: October 05, 2023 DATE H&P PERFORMED: 10/04/23 H&P UPDATE INFORMATION: I have reviewed H&P completed within last 30 days, I have examined patient prior to procedure and No changes to prior documentation PREOP DIAGNOSIS: Unstable angina PRIMARY INDICATION FOR PROCEDURE: Unstable angina PLANNED PROCEDURE: Left heart cath with possible percutaneous coronary intervention PATIENT REASSESSED PRIOR TO SEDATION, WITH NO CHANGE NOTED: Yes PHYSICAL EXAM: alert, oriented x 3, clear to auscultation bilaterally and regular rate & rhythm AIRWAY EVAL/ANESTHESIA PLAN: normal airway, ASA III, Local Anesthesia, Risks, benefits & alternatives of sedation and/or procedure discussed and Patient agrees to continue as planned ADDITIONAL INFORMATION: Moderate sedation
--- NOTE | 2023-10-05 08:38 | XACV_ITS ---
Exam Room: [facility] Ht: 188 cm Wt: 109 kg BSA: 2.41 m2 Gender: Male : 1950 Any Known Allergies: No known allergies Exam Priority: Routine Indication(s): - Unstable angina Procedure(s): Procedure Description: Diagnostic procedure Procedure Description: Aortogram Procedure Description: Venous Graft Catheterization Procedure Description: Coronary Angiography Diagnostic Cath Status: Urgent Diagnostic Findings * INDICATION: Unstable angina. * Left Main has luminal irregularities. * Mid Left Anterior Descending: chronic total occlusion, JENN: 0 flow. * Proximal Right Coronary Artery: chronic total occlusion, JENN: 0 flow. * Mid Circumflex: chronic total occlusion, JENN: 0 flow. * Bypass grafts: PANDA to LAD is patent. SVG jump graft to OM and ramus is patent. SVG to RCA is occluded.. * Coronary angiography shows right dominance. PCI Status: Elective Conclusions 1. Severe [place] coronary artery disease Patent SVG to OM/ramus. Patent PANDA to LAD. SVG to RCA is occluded.. 2. Patient has prior CABG. Recommendations * Aggressive risk factor modification. * Outpatient cardiology follow up in 2 weeks. Interventional RX Recommendation: medical therapy and/or counseling Diagnostic RX Recommendation: medical therapy and/or counseling Pressures Phase:Rest AO : / ( 0 ) @ 8:52:00 AM 135 / 57 ( 87 ) @ 8:52:00 AM 94 / 54 ( 72 ) @ 9:09:00 AM 111 / 51 ( 74 ) @ 9:13:00 AM 112 / 52 ( 75 ) @ 9:13:00 AM 92 / 59 ( 75 ) @ 9:16:00 AM LV : 115 / -8 / 9 @ 9:13:00 AM 117 / -7 / 12 @ 9:13:00 AM Valves Phase:DefaultPhase AV : 5.0 @ 9:30:33 AM AV Mean Gradient: 9.0 @ 9:30:33 AM 9.0 @ 9:30:33 AM Clinical Evaluation EBL: 5mL-10mL Procedural Details Procedure Consent Obtained. Pre-Procedure Time Out. Identified patient by full name and date of as verbalized by the patient/guarantor. Does the consent match the physician's order: Yes. Accurate & Complete Informed Consent: Yes. Inpatient/Outpatient History & Physical on Chart: Yes. If H&P is completed, is and addenduem needed: No; If yes, is the addendum complete: N/A. Visualize and Verify Site with Patient/Guarantor: N/A. Relevant Radiology Images available: N/A. Procedure started. [facility] Clinical Fraility Score: 5: Mildly Frail. 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 Chest Pain Symptom Assessment: Typical Angina Symptoms. Cardiovascular Instability: No; stable. Correct patient, site and procedure confirmed by cath team. Current diagnosis: Unstable angina. PERRLA. Strong, equal hand aluminizer bilaterally. Lungs clear x 5 lobes. IV Site on Arrival: 20 gauge in the right forearm. IV Fluids: 0.9% NaCl at KVO. 0 mL infused prior to label maker. Pre Procedural Pulses: bilateral dorsalis pedis was Doppled. Pre Procedural Pulses: bilateral posterior tibial was Doppled. Pre Procedural Pulses: bilateral radial was 2+. Oxygen started at 3liters/min via nasal canula. bilateral groins was prepped with chloroprep then draped in the usual sterile fashion. Physician notified. Baseline sample Acquired. HR: 68 BPM. Patient's family unavailable. Physician arrived. Physician scrubbed in. Immediate Pre-Procedure Time Out. Correct Patient: Yes; Correct Procedure: Yes; Correct Site: Yes; Correct Patient Position: Yes; Correct Supplies: Yes; Dried Flammable Prep: Yes; Blood Products Available: N/A;. Lidocaine 1% infiltrated to the right groin. Arterial access obtained with micropuncture set. A 6 moroccan JL4 catheter in over wire. Multiple views taken of left coronary artery. Catheter removed over the standard wire. A 6 moroccan JR4 catheter in over wire. Multiple views taken of right coronary artery. Admit Source: In Patient. Current Diagnosis : Unstable angina. Catheter redirected to grafts. Y graft SVG's to OM and Ramus visualized and patent. Cathter redirected over the wire to the PANDA. PANDA to LAD visualized. Catheter removed over the wire. A 5 moroccan JR4 catheter in over wire. Jean Chowdhury RN, ALTERATION MANAGER was relieved by Isela Pantoja RN as monitoring person. Angiography taken of right coronary artery. Catheter removed over the standard wire. A 5 moroccan Angled Pig catheter in over wire. EDP Sample taken: LV 115/-9,9; HR: 76 BPM; SpO2: 98%. Pullback taken: LV 117/-8,12; AO 111/51(74); Mean: 9mmHg, Peak to Peak: 5mmHg, SEP: 21sec/min; HR: 72 BPM; SpO2: 98%. Aortogram performed in PONCE @ 20 mL/second for a total of 40 mL. SVG to RCA occluded. A Right femoral angiogram was performed to determine safe placement of closure device. Catheter removed over the standard wire. Physician scrubbed out. A Suture was successful obtaining hemostatsis at the Right Femoral artery insertion site. Sheath(s) sutured into position with 2-0 silk and sterile 4x4's and Op-site applied over the site. No oozing or signs and symptoms of hematoma noted. Post Procedure: Pulses reassessed and unchanged. PERRLA. Strong, equal hand aluminizer bilaterally. No VTE prophylaxis required. Medication's Wasted: Heparin = 4000 u. Medication's Wasted: Other = Versed 1 mg. Medication's Wasted: Other = Fentanyl 50 mcg. Total IV fluids: 75 mL. Post-op diagnosis: Occluded SVG to RCA, Severe Multivessel rosebud CAD, Medical Therapy. Complications: none. Estimated blood loss: 5mL-10mL. Responsiveness - Normal response to verbal stimuli; alert and oriented, PERRLA. Airway - Unaffected, no intervention required; spontaneous ventilation. Circulation: W/N/L, pulses unchanged. Nausea/Vomiting: No. Procedure completed. Patient transferred by bed to 1st floor. Access Site Site: Right Femoral artery Sheath Size: 6 Fr Hemostasis Method: Suture Hemostasis Success: Successful Procedure Medications Start: 8:46 AM Stop: 8:46 AM Medication: Versed Amount: 1 mg Route: I.V. Start: 8:46 AM Stop: 8:46 AM Medication: Fentanyl Amount: 50 mcg Route: I.V. Start: 8:54 AM Stop: 8:54 AM Medication: Versed Amount: 1 mg Route: I.V. Start: 8:54 AM Stop: 8:54 AM Medication: Fentanyl Amount: 50 mcg Route: I.V. Start: 9:09 AM Stop: 9:09 AM Medication: Versed Amount: 1 mg Route: I.V. Start: 9:09 AM Stop: 9:09 AM Medication: Fentanyl Amount: 50 mcg Route: I.V. I, the attending physician, have reviewed and verified all procedure medications. Yes, all medications given per verbal order History/Risk Factors Hypertension: Yes Dyslipidemia: Yes Peripheral Arterial Disease (PAD): No Myocardial Infarction ([place]): Yes Obesity: No Renal Disease: No Tobacco Use: Never Prior Interventions PCI: No CABG: Yes Valve Surgery: No Report Signatures Finalized by Gregorio Phillip MD on 10/14/2023 02:47 PM
[2023-10-05] MEDS: sodium chloride 0.9% 1,000 ML 50 ML IV (08:45)
--- NOTE | 2023-10-05 09:20 | PC.NURSE ---
Instructed by Dr. Phillip to not pull the sheath in the groin until 12:30 PM or llater d/t pt had been taking eliquis.
--- NOTE | 2023-10-05 10:46 | PM.PN ---
Subjective Subjective: Patient had coronary angiogram today that shows patent PANDA to LAD and SVG to OM and Ramus arteries. SVG to RCA is occluded. EDP is normal Currently not having chest pain. Still feels short of breath. Vitals/I&O/Wt Last Vital Signs Temp 98.9 F 10/05/23 08:00 Pulse 70 10/05/23 08:00 Resp 18 10/05/23 08:00 BP 138/72 10/05/23 08:00 Pulse Ox 95 10/05/23 08:00 O2 Del Method Room Air 10/05/23 08:00 10/04/23 10/05/23 10/05/23 22:59 06:59 14:59 Intake Total 240 / 240 50 / 290 Balance 240 / 240 50 / 290 Weight last 48 hrs Weight 240 lb 12.8 oz Weight 240 lb 9.6 oz Physical Exam Narrative: GENERAL: [] HEENT: Exam within normal limits. [] BACK: Exam normal. [] LUNGS: Clear to auscultation. [] HEART: Regular rate and rhythm. [] EXTREMITIES: No edema. [] NEUROLOGIC: Exam normal. [] SKIN: Unremarkable. [] Data 10/05/23 01:13 10/05/23 01:13 A&P Assessment and plan (1) Chest pain: (2) CHF (congestive heart failure): Qualifiers: Heart failure type: diastolic Heart failure chronicity: unspecified Qualified Code(s): I50.30 - Unspecified diastolic (congestive) heart failure (3) HLD (hyperlipidemia): (4) Essential hypertension: (5) CAD (coronary artery disease): Qualifiers: Coronary Disease-Associated Artery/Lesion type: [place] artery [place] vs. transplanted heart: [place] heart Associated angina: with unstable angina Qualified Code(s): I25.110 - Atherosclerotic heart disease of [place] coronary artery with unstable angina pectoris (6) Diabetes type 2, controlled: Plan Patient's coronary angiography demonstrates occluded SVG to RCA with collaterals from the left system. LVEDP is normal. We will obtain CTA in the morning to assess lungs for underlying reason for his shortness of breath that is very significant. Continue current medications. Will keep holding Eliquis for today and will resume tomorrow morning. Echocardiogram performed. Result pending. Troponins have been negative. Continue aspirin. Attestations Medical Necessity Statement*: Care expected to cross 2 midnights. Patient had coronary angiogram today, given his recent eliquis use and femoral access, will observe in hospital for today. Also needs CTA Coding Level of Care Code Acute Code for Chg Fwd Diagnoses Chest pain R07.9 Diastolic congestive heart failure, unspecified HF chronicity I50.30 Heart failure type: diastolic Heart failure chronicity: unspecified HLD (hyperlipidemia) E78.5 Essential hypertension I10 Coronary artery disease involving [place] coronary artery of [place] heart with unstable angina pectoris I25.110 Coronary Disease-Associated Artery/Lesion type: [place] artery [place] vs. transplanted heart: [place] heart Associated angina: with unstable angina Diabetes type 2, controlled E11.9
[2023-10-05 11:43] LABS: Glucose Point of Care 117 mg/dL (70-110)
[2023-10-05] MEDS: losartan 50 mg Tablet 25 MG PO (12:36)
[2023-10-05 16:19] LABS: Glucose Point of Care 196 mg/dL (70-110)
[2023-10-05] MEDS: insulin lispro 100 unit/1 mL SUBCUT ×2 (18:04→21:18)
--- NOTE | 2023-10-05 20:10 | PC.NURSE ---
Bedrest completed at 8pm. Patient assisted OOB to the BR. Right groin site assessed, site is soft with dressing dry and intact. Pedal pulses are palpable, right leg is warm to touch. Patient denies any chest pain or pain to the right exteremity.
[2023-10-05 21:12] LABS: Glucose Point of Care 173 mg/dL (70-110)
[2023-10-06] VITALS (7 sets, daily range): BP systolic 106–139; BP diastolic 63–68; PULSE 64–81; RESP 15–21; TEMP 36.6–37.1; O2SAT 94–97
[2023-10-06 05:20] LABS: Basophils # 0.1 10^3/uL (0.0-0.1); Basophils % 0.6 %; Eosinophils # 0.4 10^3/uL (0.0-0.8); Eosinophils % 4.3 %; Hematocrit 41.1 % (37-53); Lymphocytes # 2.2 10^3/uL (0.8-4.8); Lymphocytes % 23.6 %; Mean Corpuscular HGB Conc 33.6 g/dL (30-55); Mean Corpuscular Hemoglobin 31.4 pg (27-33); Mean Corpuscular Volume 93.4 fl (82-101); Mean Platelet Volume 11.3 fL (7.4-10.4); Monocytes # 1.1 10^3/uL (0.2-0.9); Monocytes % 12.1 %; Neutrophils # 5.42 10^3/uL (1.8-7.7); Neutrophils % 58.5 %; Nucleated Red Blood Cells % 0 %; Platelet Count 156 10^3/cmm (157-399); Red Cell Distribution Width 12.1 % (12.1-15.1); White Blood Count 9.27 10^3/uL (3.29-11.43)
[2023-10-06 05:50] LABS: Anion Gap 14.3 (5-19); Blood Urea Nitrogen 17 mg/dL (8-23); Calcium 9.4 mg/dL (8.5-10.5); Carbon Dioxide 26 mmol/L (22-29); Chloride 105 mmol/L (98-107); Glucose 186 mg/dL (65-115); Osmolality Calculated 298 mOsm/kg (285-295); Potassium 4.3 mmol/L (3.5-5.1); Sodium 141 mmol/L (136-145)
[2023-10-06 06:33] LABS: Glucose Point of Care 196 mg/dL (70-110)
--- NOTE | 2023-10-06 08:19 | CTR_ITS ---
PROCEDURE INFORMATION: Exam: CTA Chest With Contrast Exam date and time: 10/06/2023 9:55 AM Age: 72 years old Clinical indication: Abdominal pain; Generalized; Other: SOB; Prior surgery; Surgery date: 6+ months; Surgery type: Heart; Additional info: Worsening shortness of breath/abdominal pain TECHNIQUE: Imaging protocol: Computed tomographic angiography of the chest with contrast. Exam focused on the arteries. 3D rendering (Not supervised by radiologist): MIP and/or 3D reconstructed images were created by the technologist. Radiation optimization: All CT scans at this facility use at least one of these dose optimization techniques: automated exposure control; mA and/or kV adjustment per patient size (includes targeted exams where dose is matched to clinical indication); or iterative reconstruction. Contrast material: OMNI 350; Contrast volume: 100 ml; Contrast route: INTRAVENOUS (IV); COMPARISON: CT angio chest [facility] [id number] 02/20/2020 11:46 AM RADIATION DOSE METRICS: Total DLP (mGy-cm): 1717.9 FINDINGS: Pulmonary arteries: Normal. No pulmonary emboli. Aorta: Unremarkable. No aortic aneurysm. No aortic dissection. Lungs: Unremarkable. No consolidation. No masses. Pleural spaces: Unremarkable. No pneumothorax. No pleural effusion. Heart: Unremarkable. No cardiomegaly. No pericardial effusion. Coronary arteries: Coronary artery calcifications. Lymph nodes: Visible central lymph nodes are not pathologically enlarged. Bones/joints: Unremarkable. No acute fracture. Soft tissues: Unremarkable. PROCEDURE INFORMATION: Exam: CT Abdomen And Pelvis With Contrast Exam date and time: 10/06/2023 9:55 AM Age: 72 years old Clinical indication: Abdominal pain; Generalized; Other: SOB; Prior surgery; Surgery date: 6+ months; Surgery type: Heart; Additional info: Worsening shortness of breath/abdominal pain TECHNIQUE: Imaging protocol: Computed tomography of the abdomen and pelvis with contrast. Radiation optimization: All CT scans at this facility use at least one of these dose optimization techniques: automated exposure control; mA and/or kV adjustment per patient size (includes targeted exams where dose is matched to clinical indication); or iterative reconstruction. Contrast material: OMNI 350; Contrast volume: 100 ml; Contrast route: INTRAVENOUS (IV); COMPARISON: CT angio chest PE [facility] [id number] 02/20/2020 11:46 AM RADIATION DOSE METRICS: Total DLP (mGy-cm): 1717.9 FINDINGS: Tubes, catheters and devices: Epicardial pacing wires noted. Liver: Normal. No mass. Gallbladder and bile ducts: Normal. No calcified stones. No ductal dilation. Pancreas: Normal. No ductal dilation. Spleen: Normal. No splenomegaly. Adrenal glands: Normal. No mass. Kidneys and ureters: Small cysts septation within a 6.3 cm left renal cyst. Stomach and bowel: Unremarkable. No obstruction. No mucosal thickening. Appendix: No evidence of appendicitis. Intraperitoneal space: Unremarkable. No free air. No significant fluid collection. Vasculature: Unremarkable. No abdominal aortic aneurysm. Lymph nodes: Unremarkable. No enlarged lymph nodes. Urinary bladder: Unremarkable as visualized. Reproductive: Unremarkable as visualized. Bones/joints: Unremarkable. No acute fracture. Soft tissues: Unremarkable. Other findings: Slightly dense bile, perhaps vicarious excretion. CT/CT angio chest w abd pel w con IMPRESSION: No acute findings. IMPRESSION: No acute findings. COMMENTS: Consistent with the [employer]'s Incidental Findings Committee white paper (J Am Jose Cruz Radiol 2018): Any incidental renal lesion less than 1 cm or classified as too small to characterize, or any incidental cystic renal lesion characterized as simple-appearing, is likely benign. No follow-up imaging is recommended for these lesions per consensus recommendations based on imaging criteria.
[2023-10-06] MEDS: losartan 50 mg Tablet 25 MG PO (08:35)
[2023-10-06] MEDS: insulin lispro 100 unit/1 mL SUBCUT ×2 (08:36→11:54)
[2023-10-06] MEDS: iohexol 350 mg/mL 500 mL Btl (per mL) IV (09:51)
[2023-10-06 10:51] LABS: Glucose Point of Care 263 mg/dL (70-110)
--- NOTE | 2023-10-06 11:01 | P.DS_ITS ---
Discharge Providers Date of Admission: 10/04/23 19:30 Date of Discharge: October 06, 2023 Attending Provider at Admission: Gregorio Phillip M.D Attending Provider at Discharge: Gregorio Phillip M.D Primary Care Provider: Geraldo Huerta MD Diagnoses at Discharge Discharge Diagnosis (1) Chest pain: Status: Inactive (2) CHF (congestive heart failure): Status: Acute Qualifiers: Heart failure chronicity: unspecified Heart failure type: diastolic Qualified Code(s): I50.30 - Unspecified diastolic (congestive) heart failure (3) HLD (hyperlipidemia): Status: Acute (4) Essential hypertension: Status: Acute Permanent problem details: Stable (5) CAD (coronary artery disease): Status: Acute Qualifiers: Associated angina: with unstable angina Coronary Disease-Associated Artery/Lesion type: [place] artery [place] vs. transplanted heart: [place] heart Qualified Code(s): I25.110 - Atherosclerotic heart disease of [place] coronary artery with unstable angina pectoris (6) Diabetes type 2, controlled: Status: Acute Reason for Visit Reason for Visit: Chest pain Brief History: 72 year old male with past medical history of CAD s/p CABG, diabetes, atrial fibrillation on Eliquis who has been having worsening chest pain and shortness of breath for the last 1 month. For the last 3 days he states he cannot walk any significant distance without having symptoms. He has been directly admitted from hospital with suspicion of unstable angina. He had a stress test done a few months ago that showed abnormality but size of defect was not large at that time. Medical therapy was pursued. Hospital Course Hospital Course Coronary angiography showed patent SVG to OM/ramus arteries. PANDA to LAD was patent. SVG to RCA is occluded. Echo showed moderately reduced LV systolic function that is unchanged from before. We further assessed chest pain/shortness of breath with a CTA. No PE was found. No abdominal pathology. Patient was discharged home in a stable condition on medical therapy. If have further chest pain episodes, we will add ranexa as outpatient. Physical Exam Narrative: GENERAL:Alert, oriented x3 [] HEENT: Exam within normal limits. [] BACK: Exam normal. [] LUNGS: Clear to auscultation. [] HEART: Regular rate and rhythm. [] EXTREMITIES: No edema. [] NEUROLOGIC: Exam normal. [] SKIN: Unremarkable. [] Discharge Data Studies Completed and Pending Completed Studies During Hospitalization Category Date Time Status CTA chest [CT angio chest w abd pel w con] Routine Cat Scan 10/06/23 08:19 Completed CV. echo complete* [id number] Routine Ultrasound 10/04/23 19:15 Completed Pending at discharge Category Date Time Status WINDOWS SERVER SPECIALIST request for service Routine Exams 10/05/23 08:38 Taken Basic Metabolic Panel AM LABS Lab 10/07/23 04:00 Ordered Complete Blood Count w/Auto AM LABS Lab 10/07/23 04:00 Ordered Radiology Impressions Chest/Abdomen/Pelvis CT 10/06/23 08:19 IMPRESSION: No acute findings. IMPRESSION: No acute findings. COMMENTS: Consistent with the [employer]'s Incidental Findings Committee white paper (J Am Jose Cruz Radiol 2018): Any incidental renal lesion less than 1 cm or classified as too small to characterize, or any incidental cystic renal lesion characterized as simple-appearing, is likely benign. No follow-up imaging is recommended for these lesions per consensus recommendations based on imaging criteria. Laboratory Results WBC 9.27 10^3/uL (3.29-11.43) 10/06/23 04:26 RBC 4.40 10^6/uL (3.85-5.65) 10/06/23 04:26 Hgb 13.80 g/dL (11.27-16.99) 10/06/23 04:26 Hct 41.1 % (37-53) 10/06/23 04:26 MCV 93.4 fl (82-101) 10/06/23 04:26 MCH 31.4 pg (27-33) 10/06/23 04:26 MCHC 33.6 g/dL (30-55) 10/06/23 04:26 RDW 12.1 % (12.1-15.1) 10/06/23 04:26 Plt Count 156 10^3/cmm (157-399) L 10/06/23 04:26 MPV 11.3 fL (7.4-10.4) H 10/06/23 04:26 Neut % (Auto) 58.5 % 10/06/23 04:26 Lymph % (Auto) 23.6 % 10/06/23 04:26 [place] % (Auto) 12.1 % 10/06/23 04:26 Eos % (Auto) 4.3 % 10/06/23 04:26 Baso % (Auto) 0.6 % 10/06/23 04:26 Neut # (Auto) 5.42 10^3/uL (1.8-7.7) 10/06/23 04: Lymph # (Auto) 2.2 10^3/uL (0.8-4.8) 10/06/23 04:26 [place] # (Auto) 1.1 10^3/uL (0.2-0.9) H 10/06/23 04: Eos # (Auto) 0.4 10^3/uL (0.0-0.8) 10/06/23 04: Baso # (Auto) 0.1 10^3/uL (0.0-0.1) 10/06/23 04: Nucleated RBC % (auto) 0 % 10/06/23 04: Nucleated RBCs # 0.0 /100WBC 10/06/23 04:26 D-Dimer <= 0.27 ug/mLFEU (0-0.59) 10/04/23 19:43 Sodium 141 mmol/L (136-145) 10/06/23 04:26 Potassium 4.3 mmol/L (3.5-5.1) 10/06/23 04:26 Chloride 105 mmol/L (98-107) 10/06/23 04:26 Carbon Dioxide 26 mmol/L (22-29) 10/06/23 04:26 Anion Gap 14.3 (5-19) 10/06/23 04:26 BUN 17 mg/dL (8-23) 10/06/23 04:26 Creatinine 0.9 mg/dL (0.7-1.2) 10/06/23 04:26 GFR Calculation Not Reportable 10/06/23 04:26 Glucose 186 mg/dL (65-115) H 10/06/23 04:26 POC Glucose 263 mg/dL (70-110) H 10/06/23 10:47 Calculated Osmolality 298 mOsm/kg (285-295) H 10/06/23 04:26 Lactate 2.3 mmol/L (0.5-2.2) H 10/04/23 19:43 Calcium 9.4 mg/dL (8.5-10.5) 10/06/23 04:26 Total Bilirubin 0.4 mg/dL (0.15-1.2) 10/04/23 19:43 AST 15 U/L (0-40) 10/04/23 19:43 ALT 21 U/L (0-41) 10/04/23 19:43 Alkaline Phosphatase 102 U/L (40-130) 10/04/23 19:43 Troponin T Baseline 16 ng/L (0-15) H 10/04/23 19:43 Troponin T 120 Minute 14.92 ng/L (0-15) 10/04/23 21:43 Delta Troponin T -1.08 ABS# (0-10) L 10/04/23 21:43 Troponin T Hi Sens 6Hr 14.78 ng/L (0-15) 10/05/23 01:13 Troponin T Hi Sens 6Hr Delta -1.22 ng/L (0-12) L 10/05/23 01:13 Total Protein 6.8 g/dL (6.6-8.7) 10/04/23 19:43 Albumin 3.7 g/dL (3.5-5.2) 10/04/23 19:43 Globulin 3.1 g/dL (1.3-4.6) 10/04/23 19:43 Vitals Last Vital Signs Temp 97.9 F 10/06/23 08:00 Pulse 81 10/06/23 10:22 Resp 16 10/06/23 10:22 BP 106/63 10/06/23 08:00 Pulse Ox 96 10/06/23 10:22 O2 Del Method Room Air 10/06/23 10:22 Discharge Plan Discharge Patient Disposition: Home Condition: Stable Prescriptions: New metoprolol succinate 25 mg tablet extended release 24 hr 25 mg PO DAILY Qty: 90 3RF Continued magnesium oxide 400 mg magnesium capsule 400 mg PO DAILY Qty: 90 3RF aspirin [Adult Aspirin Regimen] 81 mg tablet,delayed release (DR/EC) 81 mg PO DAILY glucosamine HCl 1,500 mg tablet 1,500 mg PO DAILY Rx Instructions: administer with a meal multivitamin Capsule 1 cap PO DAILY cinnamon bark [Cinnamon] 500 mg capsule 1,000 mg PO DAILY semaglutide 1 mg/dose (4 mg/3 mL) pen injector 1 mg SUBCUT .weekly Qty: 3 11RF losartan 25 mg tablet 25 mg PO DAILY pregabalin 200 mg capsule 200 mg PO BID sertraline 100 mg tablet 100 mg PO DAILY Emeli Myers U-100 Insulin 100 unit/mL (3 mL) insulin pen See Rx Instructions .ROUTE .COMPLEX Qty: 60 11RF Dose Instruction: INJECT 38 UNIT SUBCUTANEOUSLY DIRECTED 38 IN THE MORNING 22 IN THE EVENING Rx Instructions: SUBCUTANEOUSLY DIRECTED 25 IN THE MORNING 20 IN THE EVENING Eliquis 5 mg tablet 5 mg PO BID Qty: 180 3RF pravastatin 20 mg tablet See Rx Instructions .ROUTE .COMPLEX Qty: 90 3RF Dose Instruction: TAKE 1 TABLET BY MOUTH EVERY DAY Rx Instructions: TAKE 1 TABLET BY MOUTH EVERY DAY glimepiride 4 mg tablet 4 mg PO BID Qty: 60 11RF cyclobenzaprine 10 mg tablet 10 mg PO TID PRN (Reason: muscle spasms) Discharge Orders: Discharge Order (Routine); Ordered 10/06/23 Ordered By: Gregorio Phillip Referrals: Carolina Guzman FNP [Nurse Practitioner] - 10/18/23 2:30 pm () Discharge Diet: Diabetic Discharge Activity: Increase activity as tolerated Patient Instructions: Metoprolol (By mouth), Angina (DC), Heart Failure (DC), CHF Stoplight, Opioid Safety, Post Angiogram Home Care Instructions Discharge Attestations Time Spent in Discharge Care*: greater than 30 min Status at Discharge: Cognitive status at discharge: cognitively intact , Behavioral status at discharge: cooperative , Quality Metrics Clinical Quality Measures [ No reported AMI, CVA or VTE this stay] Coding Level of Care Code Acute Code for Chg Fwd Diagnoses Chest pain R07.9 Diastolic congestive heart failure, unspecified HF chronicity I50.30 Heart failure chronicity: unspecified Heart failure type: diastolic HLD (hyperlipidemia) E78.5 Essential hypertension I10 Coronary artery disease involving [place] coronary artery of [place] heart with unstable angina pectoris I25.110 Associated angina: with unstable angina Coronary Disease-Associated Artery/Lesion type: [place] artery [place] vs. transplanted heart: [place] heart Diabetes type 2, controlled E11.9
--- NOTE | 2023-10-06 12:51 | PC.NURSE ---
Discharge Note Patient discharged to [home] via [w/c to POV] accompanied by [his spouse]. Discharge instructions reviewed with patient and/or customer success representative. Mobile pharmacy medications and/or prescriptions provided. Belongings/home medications returned.
== END 2023-10-06 12:52 | disposition home or self-care (01) | DRG 287 ==
PROVIDERS: Admitting Provider Internal Medicine; PCP Family Medicine; Visit Provider Internal Medicine
PROC: B3101ZZ Fluoroscopy of Thoracic Aorta using Low Osmolar Contrast (ICD-10-PCS; principal; 2023-10-05 08:30)
DX: I25.110 Atherosclerotic heart disease of native coronary artery with unstable angina pectoris (principal); I50.32 Chronic diastolic (congestive) heart failure; I25.710 Atherosclerosis of autologous vein coronary artery bypass graft(s) with unstable angina pectoris; I25.2 Old myocardial infarction; I25.82 Chronic total occlusion of coronary artery; Z95.1 Presence of aortocoronary bypass graft; I48.91 Unspecified atrial fibrillation; Z79.01 Long term (current) use of anticoagulants; G25.0 Essential tremor; E78.5 Hyperlipidemia, unspecified; I11.0 Hypertensive heart disease with heart failure; E11.9 Type 2 diabetes mellitus without complications
CPT/HCPCS: 36415; 36416; 71275; 74177; 80048; 80053; 82962; 83605; 84484; 85025; 85378; 93005; 93306; 93459; 96372; 99152; 99153; 99215; C1769; C1887; C1894; G0378; G0379; J1644; J1815; J2250; J3010; J7030; Q9967

== ENCOUNTER → 2023-10-18 15:13 | Outpatient (BNVA) | payer MEDICARE, OTHER, SELFPAY | PROVIDERS: PCP Family Medicine; Visit Provider Nurse Practitioner Family | DX: I25.110 Atherosclerotic heart disease of native coronary artery with unstable angina pectoris (principal) | CPT/HCPCS: 36415; 80048; 99214 ==

== ENCOUNTER → 2023-12-07 09:10 | Outpatient (BNVA) | payer MEDICARE, OTHER, SELFPAY | PROVIDERS: PCP Family Medicine; Visit Provider Family Medicine | DX: I10 Essential (primary) hypertension (principal); I50.30 Unspecified diastolic (congestive) heart failure; E11.9 Type 2 diabetes mellitus without complications | CPT/HCPCS: 80053; 80061 ==

== ENCOUNTER → 2024-01-15 08:48 | Outpatient (BNVA) | payer MEDICARE, OTHER, SELFPAY | PROVIDERS: PCP Family Medicine; Visit Provider Family Medicine | DX: I10 Essential (primary) hypertension (principal); E11.9 Type 2 diabetes mellitus without complications; I50.30 Unspecified diastolic (congestive) heart failure | CPT/HCPCS: 83036 ==

== ENCOUNTER → 2024-02-12 14:29 | Outpatient (BNVA) | payer MEDICARE, OTHER, SELFPAY | PROVIDERS: PCP Family Medicine; Visit Provider Psychiatry & Neurology Neurology | DX: G25.0 Essential tremor (principal) | CPT/HCPCS: 99212 ==

== ENCOUNTER → 2024-04-08 14:30 | Outpatient (BNVA) | payer MEDICARE, OTHER, SELFPAY | PROVIDERS: PCP Family Medicine; Visit Provider Internal Medicine | DX: R06.02 Shortness of breath (principal); I25.10 Atherosclerotic heart disease of native coronary artery without angina pectoris; I11.0 Hypertensive heart disease with heart failure; I50.30 Unspecified diastolic (congestive) heart failure; E78.5 Hyperlipidemia, unspecified; E11.51 Type 2 diabetes mellitus with diabetic peripheral angiopathy without gangrene; Z79.4 Long term (current) use of insulin | CPT/HCPCS: 99214 ==

== ENCOUNTER → 2024-06-06 08:14 | Outpatient (BNVA) | payer MEDICARE, OTHER, SELFPAY | PROVIDERS: PCP Family Medicine; Visit Provider Family Medicine | DX: I11.0 Hypertensive heart disease with heart failure (principal); I50.30 Unspecified diastolic (congestive) heart failure; I25.110 Atherosclerotic heart disease of native coronary artery with unstable angina pectoris; E11.9 Type 2 diabetes mellitus without complications | CPT/HCPCS: 80053; 80061; 83036; 85025 ==

== ENCOUNTER → 2024-08-12 12:53 | Outpatient (BNVA) | payer MEDICARE, OTHER, SELFPAY | PROVIDERS: PCP Family Medicine; Visit Provider Psychiatry & Neurology Neurology | DX: G25.0 Essential tremor (principal) | CPT/HCPCS: 99212 ==

== ENCOUNTER → 2024-08-27 08:51 | Outpatient (BNVA) | payer MEDICARE, OTHER, SELFPAY | PROVIDERS: PCP Family Medicine; Visit Provider Family Medicine | DX: I10 Essential (primary) hypertension (principal); I50.30 Unspecified diastolic (congestive) heart failure; E13.69 Other specified diabetes mellitus with other specified complication; I25.110 Atherosclerotic heart disease of native coronary artery with unstable angina pectoris | CPT/HCPCS: 80053; 80061; 83036 ==

== ENCOUNTER → 2024-10-09 13:51 | Outpatient (BNVA) | payer MEDICARE, OTHER, SELFPAY | PROVIDERS: PCP Family Medicine; Visit Provider Internal Medicine | DX: I11.0 Hypertensive heart disease with heart failure (principal); I50.30 Unspecified diastolic (congestive) heart failure; I25.110 Atherosclerotic heart disease of native coronary artery with unstable angina pectoris; E78.5 Hyperlipidemia, unspecified; E11.51 Type 2 diabetes mellitus with diabetic peripheral angiopathy without gangrene; Z79.4 Long term (current) use of insulin | CPT/HCPCS: 99214 ==

== ENCOUNTER → 2024-10-29 08:55 | Outpatient (BNVA) | payer MEDICARE, OTHER, SELFPAY | PROVIDERS: PCP Family Medicine; Visit Provider Family Medicine | DX: I10 Essential (primary) hypertension (principal); E11.9 Type 2 diabetes mellitus without complications | CPT/HCPCS: 80053; 83036; 85025 ==

== ENCOUNTER 2025-01-29 09:44 | Outpatient (CLI) | payer MEDICARE, OTHER, SELFPAY ==
--- NOTE | 2025-01-29 09:48 | XRR_ITS ---
PROCEDURE INFORMATION: Exam: XR Right Hip Exam date and time: 01/29/2025 10:25 AM Age: 74 years old Clinical indication: Hip pain; Right hip TECHNIQUE: Imaging protocol: Radiologic exam of the right hip. Views: 1 view hip with pelvis when performed. COMPARISON: CR XR femur RT 1V [id number] 03/17/2020 6:21 PM FINDINGS: Bones/joints: Well corticated old avulsion fracture fragment at the right anterior superior iliac spine. Mild right hip DJD. Small right greater trochanter enthesophytes. Partially imaged lower lumbar spondylosis . No acute fracture or dislocation Soft tissues: Unremarkable. XR/XR hip RT 2-3V wo/w pel* [id number] IMPRESSION: No acute findings. See above
== END 2025-01-29 09:45 | disposition home or self-care (01) ==
LOC: RAD 09:47
PROVIDERS: PCP Family Medicine; Visit Provider Family Medicine
DX: M16.11 Unilateral primary osteoarthritis, right hip (principal); I10 Essential (primary) hypertension; I50.30 Unspecified diastolic (congestive) heart failure; I25.110 Atherosclerotic heart disease of native coronary artery with unstable angina pectoris; E11.9 Type 2 diabetes mellitus without complications; S32.314D Nondisplaced avulsion fracture of right ilium, subsequent encounter for fracture with routine healing; X58.XXXD Exposure to other specified factors, subsequent encounter; M76.891 Other specified enthesopathies of right lower limb, excluding foot; M47.816 Spondylosis without myelopathy or radiculopathy, lumbar region
CPT/HCPCS: 73502; 80053; 80061; 83036; 85025

== ENCOUNTER → 2025-02-10 13:16 | Outpatient (BNVA) | payer MEDICARE, OTHER, SELFPAY | PROVIDERS: PCP Family Medicine; Visit Provider Psychiatry & Neurology Neurology | DX: G25.0 Essential tremor (principal) | CPT/HCPCS: 99212 ==

== ENCOUNTER 2025-03-10 07:21 | Outpatient (CLI) | payer MEDICARE, OTHER, SELFPAY ==
--- NOTE | 2025-03-10 07:45 | USCV_ITS ---
Charbel Glass Age: 74 Gender: M : 1950 Exam Date: 03/10/2025 07:44 Ordering Phys: Geraldo Huerta MD Technologist: [place] [facility] [place]: hx of mi BP: 132 / 74 HR: 64 Rhythm: Sinus Technical Quality: Adequate MEASUREMENTS (Male / Female) Normal Values 2D ECHO LVOT Diameter 2.0 cm LV Ejection Fraction MOD 4C 54.6 % LV Ejection Fraction MOD 2C 58.4 % LV Ejection Fraction 2C AL 58.7 % LA Diameter 3.8 cm RA Systolic Volume 4C AL 43.9 ml RA Systolic Volume 4C MOD 40.0 ml Aorta at Sinotubular Diameter 3.1 cm IVC Diameter 2.0 cm M-MODE LA Ao Ratio MM 1.5 AV Cusp Separation MM 2.2 cm DOPPLER AV Peak Velocity 106.0 cm/s LVOT Peak Velocity 85.0 cm/s AV Area Cont Eq vti 2.7 cm squared AV Area Cont Eq pk 2.5 cm squared MV Peak Velocity 98.0 cm/s MV Area PHT 4.4 cm squared Mitral E to A Ratio 1.0 TR Peak Velocity 111.0 cm/s TR Peak Gradient 4.9 mmHg PV Peak Velocity 140.0 cm/s FINDINGS Left Ventricle Left heel is normal in size. LV systolic function is normal with EF of 50-55%. No regional wall motion abnormalities are seen. Right Ventricle Normal in size and function Right Atrium Normal in size Left Atrium Normal in size Mitral Valve Structurally normal valve. Trace mitral regurgitation Aortic Valve Structurally normal aortic valve. No significant stenosis or regurgitation Tricuspid Valve Insufficient TR jet to calculate RVSP Pulmonic Valve Mild pulmonic regurgitation. Pericardium Normal Aorta Grossly normal in size IVC Appears to be normal CONCLUSIONS Technically limited quality echocardiogram because of poor ultrasonic windows. LV systolic function is normal with EF 50-55%. Trace mitral regurgitation Mild pulmonic regurgitation Compared to prior echocardiogram from 2023, LV systolic function appears to have improved. Gregorio Phillip MD (Electronically Signed) Final Date: 22 March 2025 20:09 S
== END 2025-03-10 07:22 | disposition home or self-care (01) ==
LOC: RAD 07:22
PROVIDERS: PCP Family Medicine; Visit Provider Family Medicine
DX: I50.30 Unspecified diastolic (congestive) heart failure (principal); I37.1 Nonrheumatic pulmonary valve insufficiency
CPT/HCPCS: 93306

== ENCOUNTER → 2025-04-09 13:55 | Outpatient (BNVA) | payer MEDICARE, OTHER, SELFPAY | PROVIDERS: PCP Family Medicine; Visit Provider Internal Medicine | DX: I25.10 Atherosclerotic heart disease of native coronary artery without angina pectoris (principal); I73.9 Peripheral vascular disease, unspecified; I11.0 Hypertensive heart disease with heart failure; I50.9 Heart failure, unspecified; E11.9 Type 2 diabetes mellitus without complications; Z79.4 Long term (current) use of insulin; E78.5 Hyperlipidemia, unspecified; Z79.01 Long term (current) use of anticoagulants; Z79.82 Long term (current) use of aspirin; I25.2 Old myocardial infarction | CPT/HCPCS: 99214 ==

== ENCOUNTER → 2025-05-01 08:34 | Outpatient (BNVA) | payer MEDICARE, OTHER, SELFPAY | PROVIDERS: PCP Family Medicine; Visit Provider Family Medicine | DX: E11.9 Type 2 diabetes mellitus without complications (principal); I10 Essential (primary) hypertension; I50.30 Unspecified diastolic (congestive) heart failure; I25.110 Atherosclerotic heart disease of native coronary artery with unstable angina pectoris; B02.29 Other postherpetic nervous system involvement | CPT/HCPCS: 80053; 80061; 83036; 85025 ==

== ENCOUNTER → 2025-06-18 13:14 | Outpatient (BNVA) | payer MEDICARE, OTHER, SELFPAY | PROVIDERS: PCP Family Medicine; Visit Provider Family Medicine | DX: R42 Dizziness and giddiness (principal) | CPT/HCPCS: 80053; 83735; 85025; 86140 ==

== ENCOUNTER → 2025-06-24 14:34 | Outpatient (BNVA) | payer MEDICARE, OTHER, SELFPAY | PROVIDERS: PCP Family Medicine; Visit Provider Family Medicine | DX: R10.9 Unspecified abdominal pain (principal) | CPT/HCPCS: 83690; 86140 ==

== ENCOUNTER → 2025-07-30 08:31 | Outpatient (BNVA) | payer MEDICARE, OTHER, SELFPAY | PROVIDERS: PCP Family Medicine; Visit Provider Family Medicine | DX: I10 Essential (primary) hypertension (principal); I50.30 Unspecified diastolic (congestive) heart failure; E11.9 Type 2 diabetes mellitus without complications; E78.5 Hyperlipidemia, unspecified | CPT/HCPCS: 80053; 80061; 83036; 85025 ==